=== PATIENT | male | born 1955 | race Asian ===

== ENCOUNTER 2019-02-28 17:19 | Inpatient (IN) | payer MEDICARE ==
[2019-02-28] MEDS ORDERED: levETIRAcetam 1000 MG/NS 0.75% 1,000 MG/100 ML BAG IV ONE (17:49)
--- NOTE | 2019-02-28 17:49 | Emergency Department Report ---
ED Neuro Deficit HPI - General Chief Complaint: Neuro Symptoms/Deficit Stated Complaint: NEURO ISSUES Time Seen by Provider: 02/28/19 17:48 Source: patient, EMS Mode of arrival: Stretcher Limitations: Other - History of Present Illness Initial Comments: 63-year-old male with a past medical history of depression, HIV, and brain abnormality/seizures in 2009 presents to the hospital complains of right sided weakness and numbness that started approximately 10 AM while on the phone with a family member. Symptoms have been constant and have not improved. He did not present to the ER until 17:19. Patient states he has chronic memory deficits since 2009. He cannot recall his exact diagnosis. Family member at the bedside states that he presented with seizures at that time. Family member at the bedside also confirms that patient's delayed and hesitant speech is his baseline. Pt does not take any medications currently and has not seen an HIV/infectious disease doctor since 2016. At that time his viral load was undetectable. - Related Data Allergies/Adverse Reactions: Allergies Allergy/AdvReac Type Severity Reaction Status Date / Time No Known Allergies Allergy Unverified 02/28/19 17:20 ED Review of Systems ROS: Stated complaint: NEURO ISSUES Other details as noted in HPI Comment: All other systems reviewed and negative ED Neuro Physical Exam - General Limitations: Other Suspected Stroke: Yes - NIHSS Assessment Interval: Baseline 1a. Level of Consciousness: alert/keenly responsive 1b. LOC Questions: answers 1 question correctly 1c. LOC Commands: performs tasks correctly 2. Best Gaze: normal 3. Visual: no visual loss 4. Facial Palsy: minor paralysis 5b. Motor Arm Right: drift 5a. Motor Arm Left: no drift 6a. Motor Leg Left: no drift 6b. Motor Leg Right: drift 7. Limb Ataxia: absent 8. Sensory: normal 9. Best Language: mild/moderate aphasia 10. Dysarthria: mild/moderate dysarthria 11. Extinction/Inattention: no abnormality Total Score: 6 Stroke Severity: Moderate Stroke - Other Other exam information: General: No acute distress Head: Atraumatic Eyes: normal appearance NORRIS, EOMI ENT: Moist mucous membranes Neck: Normal appearance, no midline tenderness Chest: Clear to auscultation bilaterally CV: Regular rate and rhythm Abdomen: Soft, normal bowel sounds, nontender, nondistended, no rebound or gua rding Back: Normal inspection Extremity: Normal inspection infection, full range of motion Neuro: See NIHSS Psych: Appropriate behavior Skin: No rash ED Course Vital Signs 02/28/19 02/28/19 02/28/19 17:38 17:46 18:00 Temperature Pulse Rate 95 H 95 H 86 Respiratory 18 16 21 Rate Blood Pressure O2 Sat by Pulse Oximetry 02/28/19 02/28/19 02/28/19 18:16 18:23 18:30 Temperature 98.3 F Pulse Rate 91 H 89 88 Respiratory 17 20 19 Rate Blood Pressure 143/96 O2 Sat by Pulse 96 96 96 Oximetry 02/28/19 18:46 Temperature Pulse Rate 92 H Respiratory 23 Rate Blood Pressure 159/101 O2 Sat by Pulse 96 Oximetry - Lab Data Result diagrams: 02/28/19 17:33 02/28/19 17:33 Lab Results 02/28/19 02/28/19 02/28/19 Range/Units 17:33 17:33 17:33 WBC 7.1 (4.5-11.0) K/mm3 RBC 5.43 H (3.65-5.03) M/mm3 Hgb 16.1 H (11.8-15.2) gm/dl Hct 48.7 H (35.5-45.6) % MCV 90 (84-94) fl MCH 30 (28-32) pg MCHC 33 (32-34) % RDW 14.0 (13.2-15.2) % Plt Count 150 (140-440) K/mm3 Lymph % (Auto) 20.1 (13.4-35.0) % Perkins % (Auto) 9.7 H (0.0-7.3) % Eos % (Auto) 0.6 (0.0-4.3) % Baso % (Auto) 0.3 (0.0-1.8) % Lymph # 1.4 (1.2-5.4) K/mm3 Perkins # 0.7 (0.0-0.8) K/mm3 Eos # 0.0 (0.0-0.4) K/mm3 Baso # 0.0 (0.0-0.1) K/mm3 Seg Neutrophils % 69.3 (40.0-70.0) % Seg Neutrophils # 4.9 (1.8-7.7) K/mm3 PT 13.1 (12.2-14.9) Sec. INR 1.00 (0.87-1.13) APTT 30.7 (24.2-36.6) Sec. Thrombin Time (15.1-19.6) Sec. Sodium 139 (137-145) mmol/L Potassium 3.9 (3.6-5.0) mmol/L Chloride 102.2 (98-107) mmol/L Carbon Dioxide 24 (22-30) mmol/L Anion Gap 17 mmol/L BUN 10 (9-20) mg/dL Creatinine 1.1 (0.8-1.5) mg/dL Estimated GFR > 60 ml/min BUN/Creatinine Ratio 9 % Glucose 105 H (75-100) mg/dL Calcium 9.0 (8.4-10.2) mg/dL Magnesium (1.7-2.3) mg/dL Troponin T < 0.010 (0.00-0.029) ng/mL 02/28/19 02/28/19 Range/Units 17:33 17:40 WBC (4.5-11.0) K/mm3 RBC (3.65-5.03) M/mm3 Hgb (11.8-15.2) gm/dl Hct (35.5-45.6) % MCV (84-94) fl MCH (28-32) pg MCHC (32-34) % RDW (13.2-15.2) % Plt Count (140-440) K/mm3 Lymph % (Auto) (13.4-35.0) % Perkins % (Auto) (0.0-7.3) % Eos % (Auto) (0.0-4.3) % Baso % (Auto) (0.0-1.8) % Lymph # (1.2-5.4) K/mm3 Perkins # (0.0-0.8) K/mm3 Eos # (0.0-0.4) K/mm3 Baso # (0.0-0.1) K/mm3 Seg Neutrophils % (40.0-70.0) % Seg Neutrophils # (1.8-7.7) K/mm3 PT (12.2-14.9) Sec. INR (0.87-1.13) APTT (24.2-36.6) Sec. Thrombin Time 16.8 (15.1-19.6) Sec. Sodium (137-145) mmol/L Potassium (3.6-5.0) mmol/L Chloride (98-107) mmol/L Carbon Dioxide (22-30) mmol/L Anion Gap mmol/L BUN (9-20) mg/dL Creatinine (0.8-1.5) mg/dL Estimated GFR ml/min BUN/Creatinine Ratio % Glucose (75-100) mg/dL Calcium (8.4-10.2) mg/dL Magnesium 2.20 (1.7-2.3) mg/dL Troponin T (0.00-0.029) ng/mL - EKG Data -: EKG Interpreted by Me EKG shows normal: sinus rhythm, ST-T waves (no stemi) Rate: normal When compared to previous EKG there are: previous EKG unavailable - Radiology Data Radiology results: report reviewed CT head/brain wo con INDICATION / CLINICAL INFORMATION: 63 years Male; neuro deficits <6hrs or sx present upon awakening. TECHNIQUE: Routine CT head without contrast. All CT scans at this location are performed using CT dose reduction for ALARA by means of automated exposure control. COMPARISON: None. FINDINGS: BRAIN / INTRACRANIAL CONTENTS: I do not see hemorrhage or hemorrhagic lesion. I do not see stroke mimics. No acute hemorrhage, mass effect, midline shift, hydrocephalus, or acute, large territorial infarct. Moderate cortical involution is seen. Chronic ischemic changes are seen in the corpus stratum bilaterally more on the left side. Significant volume loss is seen in the left temporal lobe with compensatory enlargement of left temporal horn. Atrium of the left lateral ventricle is larger. Periventricular low density areas are seen probably due to microvascular faint angiopathy. I do not see CT findings to suggest acute territorial infarction. CRANIOCERVICAL JUNCTION: No significant abnormality. ORBITS: No significant abnormality of visualized orbits. SINUSES / MASTOIDS: No significant abnormality of the visualized paranasal sinuses or mastoid air cells. ADDITIONAL FINDINGS: None. IMPRESSION: I do not see hemorrhage or stroke mimics Moderate cortical involution Significant volume loss in the left temporal lobe - Medical Decision Making Code stroke was initiated prior to patient's arrival. Patient was examined at the bedside with neurology. Patient does have some mild deficits. 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 Patient does not take any medications and has been noncompliant with his HIV medications with unknown current CD4 count. Patient provided Keppra in the ED for seizure prophylaxis. Patient will be admitted for further neurologic workup. Please refer to neurologist note for recommendations. - Differential Diagnosis seizure, encephalopathy, CVA Critical Care Time: No Critical care attestation.: If time is entered above; I have spent that time in minutes in the direct care of this critically ill patient, excluding procedure time. ED Disposition Clinical Impression: Encephalopathy, Right sided weakness, HIV (human immunodeficiency virus infection) Disposition: 09 OP ADMIT IP TO THIS HOSP Is pt being admited?: Yes Does the pt Need Aspirin: No Condition: Stable Time of Disposition: 18:41 (Dr Don/hosp)
--- NOTE | 2019-02-28 17:55 | Emergency Department Report ---
ED General Adult HPI - General Chief complaint: Neuro Symptoms/Deficit Stated complaint: NEURO ISSUES Time Seen by Provider: 02/28/19 17:48 Source: patient, EMS Mode of arrival: Stretcher Limitations: Other - History of Present Illness Initial comments: [facility] Date of Service: 02/28/2019 17:13:52 Impression: Encephalopathy Comments: Unclear if he is post ictal from a seizure vs progressive dementia from untreated HIV vs infectious process. With history of seizures would resume anti epileptic and infectious work up per primary team. Metrics: Last Known Well: 02/28/2019 10:00:00 [employer] Notification Time: 02/28/2019 17:12:29 Arrival Time: 02/28/2019 17:19:00 Stamp Time: 02/28/2019 17:13:52 Time First Login Attempt: 02/28/2019 17:22:00 Video Start Time: 02/28/2019 17:27:00 Symptoms: right sided weakness NIHSS Start Assessment Time: 02/28/2019 17:32:00 Patient is not a candidate for tPA. Patient was not deemed candidate for tPA thrombolytics because of Last Well Known Above 4.5 Hours. Video End Time: 02/28/2019 17:47:31 CT head showed no acute hemorrhage or acute core infarct. CT head was reviewed. Advanced imaging was not obtained as the presentation was not suggestive of Large Vessel Occlusive Disease. Radiologist was not called back for review of advanced imaging because not indicated ER Physician notified of the decision on thrombolytics management on 02/28/2019 17:47:34 Our recommendations are outlined below. Recommendations: Activate Stroke Protocol Admission/Order Set Stroke/Telemetry Floor Neuro Checks Bedside Swallow Eval DVT Prophylaxis IV Fluids, Normal Saline Head of Bed Below 30 Degrees Euglycemia and Avoid Hyperthermia (PRN Acetaminophen) Recommended Scan: MRI Head with and Without Contrast Therapies: Physical Therapy, Occupational Therapy, Speech Therapy Assessment When Applicable Dysphaghia Screen: Swallow Evaluation, Bedside DVT prophylaxis: SCDs, Pneumatic Compression Disposition: Follow up with Teleneurology Follow up Sign Out: Discussed with Emergency Department Provider History of Present Illness: Patient is a 63 year old Male. Patient was brought by private transportation with symptoms of right sided weakness 63 yo M with history of depression, HIV, and seizures who is presenting with right sided weakness and speech changes. Patient states that he has right sided weakness. He noticed it at 10:00 this morning. He was awake and he was on the phone and he noticed it after. He came in because it didn't go away. He was not able to walk around the house. He states that something happened to him in 2011 but he is not clear on what it was he can only say he was in the ED. He is not on HIV medications. He states that his viral load was undetectable in 2014. He stopped taking his medications as he couldn't afford them. His niece says that he has memory issues at baseline. He had seizures in the past due to a brain injury is all that she knew. CT head showed no acute hemorrhage or acute core infarct but does show significant atrophy of the left temporal lobe. CT head was reviewed. Examination: 1A: Level of Consciousness - Alert; keenly responsive + 0 1B: Ask Month and Age - 1 Question Right + 1 1C: Blink Eyes & Squeeze Hands - Performs Both Tasks + 0 2: Test Horizontal Extraocular Movements - Normal + 0 3: Test Visual Camp - No Visual Loss + 0 4: Test Facial Palsy (Use Grimace if Obtunded) - Minor paralysis (flat nasolabial fold, smile asymetry) + 1 5A: Test Left Arm Motor Drift - No Drift for 10 Seconds + 0 5B: Test Right Arm Motor Drift - Drift, but doesn't hit bed + 1 6A: Test Left Leg Motor Drift - No Drift for 5 Seconds + 0 6B: Test Right Leg Motor Drift - Drift, but doesn't hit bed + 1 7: Test Limb Ataxia (FNF/Heel-Gotti) - No Ataxia + 0 8: Test Sensation - Normal; No sensory loss + 0 9: Test Language/Aphasia - Mild-Moderate Aphasia: Some Obvious Changes, Without Significant Limitation + 1 10: Test Dysarthria - Mild-Moderate Dysarthria: Slurring but can be understood + 1 11: Test Extinction/Inattention - No abnormality + 0 NIHSS Score: 6 Patient was informed the Neurology Consult would happen via TeleHealth consult by way of interactive audio and video telecommunications and consented to receiving care in this manner. Due to the immediate potential for life-threatening deterioration due to underlying acute neurologic illness, I spent 35 minutes providing critical care. This time includes time for face to face visit via telemedicine, review of medical records, imaging studies and discussion of findings with providers, the patient and/or family. Dr Caridad Parker [employer] - Related Data Allergies Allergy/AdvReac Type Severity Reaction Status Date / Time No Known Allergies Allergy Unverified 02/28/19 17:20 ED Review of Systems ROS: Stated complaint: NEURO ISSUES Other details as noted in HPI ED Physical Exam - General Limitations: Other Critical care attestation.: If time is entered above; I have spent that time in minutes in the direct care of this critically ill patient, excluding procedure time. ED Disposition Clinical Impression: Encephalopathy Disposition: DC-09 OP ADMIT IP TO THIS HOSP Is pt being admited?: Yes Condition: Stable
[2019-02-28 18:04] LABS: BUN/Creatinine Ratio 9; Blood Urea Nitrogen 10 mg/dL (9-20); Hemolysis Index 15
[2019-02-28 18:05] LABS: Basophils % (Auto) 0.3 % (0.0-1.8); Eosinophils % (Auto) 0.6 % (0.0-4.3); Hematocrit 48.7 % (35.5-45.6); Hemoglobin 16.1 gm/dl (11.8-15.2); Lymphocytes % (Auto) 20.1 % (13.4-35.0); Mean Corpuscular HGB Conc 33 % (32-34); Mean Corpuscular Volume 90 fl (84-94); Monocytes % (Auto) 9.7 % (0.0-7.3); Platelet Count 150 K/mm3 (140-440); Red Blood Count 5.43 M/mm3 (3.65-5.03)
[2019-02-28 18:06] LABS: Lymphocytes # (Auto) 1.4 K/mm3 (1.2-5.4); Monocytes # (Auto) 0.7 K/mm3 (0.0-0.8)
[2019-02-28 18:07] LABS: Partial Thromboplastin Time 30.7 Sec. (24.2-36.6)
--- NOTE | 2019-02-28 18:17 | Cat Scan Report ---
CT head/brain wo con INDICATION / CLINICAL INFORMATION: 63 years Male; neuro deficits <6hrs or sx present upon awakening. TECHNIQUE: Routine CT head without contrast. All CT scans at this location are performed using CT dos e reduction for ALARA by means of automated exposure control. COMPARISON: None. FINDINGS: BRAIN / INTRACRANIAL CONTENTS: I do not see hemorrhage or hemorrhagic lesion. I do not see stroke fidencio ics. No acute hemorrhage, mass effect, midline shift, hydrocephalus, or acute, large territorial infarct. Moderate cortical involution is seen. Chronic ischemic changes are seen in the corpus stratum bilate rally more on the left side. Significant volume loss is seen in the left temporal lobe with compensat ory enlargement of left temporal horn. Atrium of the left lateral ventricle is larger. Periventricular low density areas are seen probably due to microvascular faint angiopathy. I do not see CT findings to suggest acute territorial infarction. CRANIOCERVICAL JUNCTION: No significant abnormality. ORBITS: No significant abnormality of visualized orbits. SINUSES / MASTOIDS: No significant abnormality of the visualized paranasal sinuses or mastoid air rosana ls. ADDITIONAL FINDINGS: None. IMPRESSION: I do not see hemorrhage or stroke mimics Moderate cortical involution Significant volume loss in the left temporal lobe Discussed findings with ER physician at 5:12 PM Central daylight saving time. Signer Name: Cody Donis MD Signed: 02/28/2019 6:12 PM Workstation Name: [id number]
--- NOTE | 2019-02-28 18:44 | History and Physical Report ---
History of Present Illness Chief complaint: I feel weak, I cant talk History of present illness: 63 YO Male with HIV not currently taking medication, Seizure Disorder presents to ED for evaluation. Pt states that he experienced sudden onset numbness, Right arm and leg weakness, and slurred speech that began at 10:00hrs while talking on the telephone to a member of his family. Pt states that he waited for symptoms to improve, but symptoms persisted several hours after the onset. EMS notified and upon arrival the patient was found to have neurologic deficit. A code stroke was called and the patient transported to [facility]. Pt seen and evaluated in ED and found to have symptoms consistent with CVA. Teleneurology consulted, but patient is deemed not a candidate for TPA. Pt placed in observation status and admitted to medical floor and initiated on CVA protocol. Pt denies fever, chills, CP, Palpitations, shortness of breath, BRBPR, Productive cough, skin rash, or recent ill contacts. Non prior admission for review. No medication listed at time of admission for reconciliation. Past History Past Medical History: other (see hpi) Past Surgical History: No surgical history, Other (reviewed) Social history: single. denies: smoking, alcohol abuse, prescription drug abuse Family history: no significant family history (reviewed) Medications and Allergies Allergies Allergy/AdvReac Type Severity Reaction Status Date / Time No Known Allergies Allergy Unverified 02/28/19 17:20 Home Medications Medication Instructions Recorded Confirmed Last Taken Type Unobtainable 02/28/19 02/28/19 Unknown History Review of Systems Constitutional: no weight loss, no weight gain, no fever, no sweats Ears, nose, mouth and throat: no ear pain, no ear discharge, no tinnitis, no decreased hearing, no nose pain Cardiovascular: no chest pain, no orthopnea, no palpitations, no edema, no syncope Respiratory: no cough, no excessive sputum, no hemoptysis, no dyspnea on exertion Gastrointestinal: no nausea, no vomiting, no diarrhea, no constipation, no change in bowel habits Genitourinary Male: no hematuria, no flank pain, no discharge, no urinary frequency, no urinary hesitancy, no nocturia Rectal: no pain, no incontinence, no bleeding Musculoskeletal: no neck stiffness, no neck pain, no shooting arm pain, no arm numbness/tingling, no low back pain, no leg numbness/tingling Integumentary: no rash, no pruritis, no redness, no sores, no wounds, no jaundice Neurological: no transient paralysis, no paralysis, no weakness, no tremors Psychiatric: no anxiety, no memory loss, no change in sleep habits, no sleep disturbances, no insomnia, no hypersomnia, no change in appetite, no change in libido Endocrine: no cold intolerance, no heat intolerance, no polyphagia, no excessive thirst, no polyuria, no nocturia, no excessive sweating Hematologic/Lymphatic: no easy bruising, no easy bleeding Allergic/Immunologic: no allergic rhinitis, no wheezing Exam - Constitutional Vitals: Temp Pulse Resp BP Pulse Ox 98.3 F 89 20 143/96 96 02/28/19 18:23 02/28/19 18:23 02/28/19 18:23 02/28/19 18:23 02/28/19 18:23 General appearance: Absent: no acute distress, mild distress - EENT Eyes: Present: PERRL ENT: hearing intact, clear oral mucosa - Neck Neck: Present: supple, normal ROM - Respiratory Respiratory effort: normal Respiratory: bilateral: CTA - Cardiovascular Heart Sounds: Present: S1 & S2. Absent: rub, click - Extremities Extremities: pulses symmetrical, No edema Peripheral Pulses: within normal limits - Abdominal General gastrointestinal: Present: soft, non-tender, non-distended, normal bowel sounds Male genitourinary: Present: normal - Integumentary Integumentary: Present: clear, warm, dry - Musculoskeletal Musculoskeletal: right sided weakness - Psychiatric Psychiatric: appropriate mood/affect, intact judgment & insight, memory intact - Neurologic Neurologic: no CNII-XII intact, focal deficits, moves all extremities, no gait normal Results - Labs CBC & Chem 7: 02/28/19 17:33 02/28/19 17:33 Labs: Abnormal lab results 02/28/19 02/28/19 Range/Units 17:33 17:33 RBC 5.43 H (3.65-5.03) M/mm3 Hgb 16.1 H (11.8-15.2) gm/dl Hct 48.7 H (35.5-45.6) % [place] % (Auto) 9.7 H (0.0-7.3) % Glucose 105 H (75-100) mg/dL Assessment and Plan - Patient Problems (1) CVA (cerebral vascular accident) Status: Acute Qualifiers: Laterality of affected vessel: unspecified Plan to address problem: CVA protocol: CT head, neuro check, seizure precautions, lipid panel, carotid doppler, Echo, antiplatelet therpay, Neurology consulted in ED, further testing as per neurology team, PT/OT/Speech Therapy, Swallow screen (2) Right hemiparesis Status: Acute Plan to address problem: Secondary to CVA, PT consulted, (3) Seizure disorder Status: Acute Plan to address problem: Seizure precautions, supportive care, neuro checks (4) HIV (human immunodeficiency virus infection) Status: Acute Plan to address problem: Outpatient I/D F/U care. (5) DVT prophylaxis Status: Acute Plan to address problem: SCD to ble while in bed, prophylactic heparin
[2019-02-28] MEDS ORDERED: MAGNESIUM HYDROXIDE (MOM) ORAL LIQD UDC PO PRN (18:50)
[2019-02-28] MEDS ORDERED: ACETAMINOPHEN 325 MG TAB PO PRN (18:50)
[2019-02-28] MEDS ORDERED: METOCLOPRAMIDE 10 MG TAB PO PRN (18:50)
[2019-02-28] MEDS ORDERED: PROMETHAZINE 25 MG RECT SUPP PR PRN (18:50)
[2019-02-28] MEDS ORDERED: ONDANSETRON 4 MG/2 ML INJ IV PRN (18:50)
[2019-02-28 18:59] LABS: Bilirubin,Urine NEG (Negative); Blood,Urine NEG (Negative); Color,Urine Straw (Yellow); Protein,Urine <15 mg/dL mg/dL (Negative); RBC,Urine < 1.0 /HPF (0.0-6.0); Urobilinogen,Urine < 2.0 mg/dL (<2.0); WBC,Urine < 1.0 /HPF (0.0-6.0)
[2019-02-28 19:07] LABS: Amphetamine Screen,Urine PRESUMPTIVE NEGATIVE; Benzodiazepines Screen,Urine PRESUMPTIVE NEGATIVE; Cannabinoid Screen,Urine PRESUMPTIVE NEGATIVE; Cocaine Screen,Urine PRESUMPTIVE NEGATIVE; Methadone Screen,Urine PRESUMPTIVE NEGATIVE; Opiate Screen,Urine PRESUMPTIVE NEGATIVE
--- NOTE | 2019-03-01 11:42 | Progress Note ---
Assessment and Plan (1) CVA (cerebral vascular accident) Status: Acute Qualifiers: Laterality of affected vessel: unspecified Plan to address problem: Stroke protocol initiated MRI done but report is pending Echo done Carotid duplex scan done Neurology consult (2) Right hemiplegia Status: Acute Plan to address problem: Secondary to CVA, PT consulted, (3) Seizure disorder Status: Acute Plan to address problem: Seizure precautions, supportive care, neuro checks Continue antiseizure medications (4) HIV (human immunodeficiency virus infection) Status: Acute Plan to address problem: Outpatient I/D F/U care. (5) DVT prophylaxis Status: Acute Plan to address problem: SCD to ble while in bed, prophylactic heparin and GI prophylaxis Subjective Date of service: 03/01/19 Principal diagnosis: CVA with Rt hemiplegia Interval history: 63 YO Male with HIV not currently taking medication, Seizure Disorder presents to ED for evaluation. Pt states that he experienced sudden onset numbness, Right arm and leg weakness, and slurred speech that began at 10:00hrs while talking on the telephone to a member of his family. Pt states that he waited for symptoms to improve, but symptoms persisted several hours after the onset. EMS notified and upon arrival the patient was found to have neurologic deficit. A code stroke was called and the patient transported to [facility]. Pt seen and evaluated in ED and found to have symptoms consistent with CVA. Teleneurology consulted, but patient is deemed not a candidate for TPA. Pt placed in observation status and admitted to medical floor and initiated on CVA protocol. Pt denies fever, chills, CP, Palpitations, shortness of breath, BRBPR, Productive cough, skin rash, or recent ill contacts. Non prior admission for review. No medication listed at time of ad mission for reconciliation. patinet changed to inpatient status. Objective - Constitutional Vitals: Vital Signs - 12hr 03/01/19 06:44 Temperature 99.0 F Pulse Rate 85 Respiratory 20 Rate Blood Pressure 150/98 O2 Sat by Pulse 96 Oximetry General appearance: Present: no acute distress, well-nourished - EENT Eyes: PERRL, EOM intact ENT: hearing intact, clear oral mucosa Ears: bilateral: normal - Neck Neck: supple, normal ROM - Respiratory Respiratory effort: normal Respiratory: bilateral: CTA - Breasts Breasts: normal - Cardiovascular Heart rate: 78 Rhythm: regular Heart Sounds: Present: S1 & S2. Absent: gallop, rub Extremities: no ischemia, pulses intact, No edema, normal color, Full ROM - Gastrointestinal General gastrointestinal: Present: soft, non-tender, non-distended, normal bowel sounds - Genitourinary Male genitourinary: normal - Integumentary Integumentary: clear, warm, dry - Musculoskeletal Musculoskeletal: right sided weakness (0/5 power in RUE and RLE.) - Neurologic Neurologic: focal deficits (Rt Hemiplegia present), moves all extremities - Psychiatric Psychiatric: memory intact, appropriate mood/affect, intact judgment & insight - Labs CBC & Chem 7: 02/28/19 17:33 02/28/19 17:33 Labs: Abnormal lab results 02/28/19 02/28/19 Range/Units 17:33 17:33 RBC 5.43 H (3.65-5.03) M/mm3 Hgb 16.1 H (11.8-15.2) gm/dl Hct 48.7 H (35.5-45.6) % [place] % (Auto) 9.7 H (0.0-7.3) % Glucose 105 H (75-100) mg/dL - Imaging and cardiology EKG: report reviewed MRI - head: report reviewed (pending )
--- NOTE | 2019-03-01 13:38 | Consultation ---
History of Present Illness Consult date: 03/01/19 History of present illness: went over the ED note and checked the CT marked atrophy and old chronic strokes bilateral cause of problem Past History Past Medical History: other (see hpi) Past Surgical History: No surgical history, Other (reviewed) Social history: single. denies: smoking, alcohol abuse, prescription drug abuse Family history: no significant family history (reviewed) Medications and Allergies Allergies Allergy/AdvReac Type Severity Reaction Status Date / Time No Known Allergies Allergy Unverified 02/28/19 17:20 Home Medications Medication Instructions Recorded Confirmed Last Taken Type Unobtainable 02/28/19 02/28/19 Unknown History Active Meds: Active Medications Acetaminophen (Tylenol) 650 mg PO Q4H PRN PRN Reason: Pain, Mild (1-3) Bisacodyl (Dulcolax) 10 mg MN QDAY PRN PRN Reason: Constipation Heparin Sodium (Porcine) (Heparin) 5,000 unit SUB-Q Q12HR CHAO Magnesium Hydroxide (Milk Of Magnesia) 30 ml PO Q4H PRN PRN Reason: Constipation Metoclopramide HCl (Reglan) 10 mg PO Q6H PRN PRN Reason: Nausea And Vomiting Ondansetron HCl (Zofran) 4 mg IV Q8H PRN PRN Reason: Nausea And Vomiting Promethazine HCl (Phenergan) 25 mg MN Q6H PRN PRN Reason: Nausea And Vomiting Sodium Chloride (Sodium Chloride Flush Syringe 10 Ml) 10 ml IV PRN PRN PRN Reason: LINE FLUSH Physical Examination - Vital Signs Vital Signs: Vital Signs Pulse Resp 95 H 18 02/28/19 17:38 02/28/19 17:38 Results - Laboratory Findings CBC and BMP: 02/28/19 17:33 02/28/19 17:33 Abnormal Lab Findings: Abnormal Labs 02/28/19 02/28/19 17:33 17:33 RBC 5.43 H Hgb 16.1 H Hct 48.7 H [place] % (Auto) 9.7 H Glucose 105 H
[2019-03-01] MEDS: HEPARIN 5,000 UNIT/1 ML VIAL SUB-Q SCH ×2 (14:19→21:37)
[2019-03-02] MEDS: HEPARIN 5,000 UNIT/1 ML VIAL SUB-Q SCH ×2 (10:25→21:42)
--- NOTE | 2019-03-02 13:41 | Vascular Lab Report ---
BILATERAL CAROTID DOPPLER ULTRASOUND INDICATION : stroke TECHNIQUE: Grayscale and color Doppler imaging performed through the neck. COMPARISON: None FINDINGS: Right: There is no significant atherosclerotic disease. Peak systolic velocity in the CCA is 72 cm/ s with end-diastolic velocity of 19 cm/s. Peak systolic velocity in the proximal ICA is 90 cm/s with end-diastolic velocity of 14 cm/s. ICA to CCA ratio is less than 2. There is antegrade flow in the E CA and the vertebral artery. Left: There is no significant atherosclerotic disease. Peak systolic velocity in the CCA is 71 cm/s w ith end-diastolic velocity of 15 cm/s. Peak systolic velocity in the proximal ICA is 73 cm/s with end -diastolic velocity of 26 cm/s. ICA to CCA ratio is less than 2. There is antegrade flow in the ECA and the vertebral artery. IMPRESSION: No hemodynamically significant stenosis by NASCET criteria. Doppler velocities indicate l ess than 50% luminal narrowing throughout both carotid systems. Signer Name: Samson Ellis Jr, MD Signed: 03/02/2019 1:37 PM Workstation Name: [id number]
--- NOTE | 2019-03-02 15:21 | Progress Note ---
Assessment and Plan (1) CVA (cerebral vascular accident) Status: Acute Qualifiers: Laterality of affected vessel: unspecified Plan to address problem: Stroke protocol initiated MRI done but report is pending Echo done Carotid duplex scan done Neurology consult (2) Right hemiplegia Status: Acute Plan to address problem: Secondary to CVA, PT consulted, (3) Seizure disorder Status: Acute Plan to address problem: Seizure precautions, supportive care, neuro checks Continue antiseizure medications (4) HIV (human immunodeficiency virus infection) Status: Acute Plan to address problem: Outpatient I/D F/U care. (5) DVT prophylaxis Status: Acute Plan to address problem: SCD to ble while in bed, prophylactic heparin and GI prophylaxis Subjective Date of service: 03/02/19 Principal diagnosis: CVA with Rt hemiplegia Interval history: 63 YO Male with HIV not currently taking medication, Seizure Disorder presents to ED for evaluation. Pt states that he experienced sudden onset numbness, Right arm and leg weakness, and slurred speech that began at 10:00hrs while talking on the telephone to a member of his family. Pt states that he waited for symptoms to improve, but symptoms persisted several hours after the onset. EMS notified and upon arrival the patient was found to have neurologic deficit. A code stroke was called and the patient transported to [facility]. Pt seen and evaluated in ED and found to have symptoms consistent with CVA. Teleneurology consulted, but patient is deemed not a candidate for TPA. Pt placed in observation status and admitted to medical floor and initiated on CVA protocol. Pt denies fever, chills, CP, Palpitations, shortness of breath, BRBPR, Productive cough, skin rash, or recent ill contacts. Non prior admission for review. No medication listed at time of ad mission for reconciliation. patient changed to inpatient status. Objective - Constitutional Vitals: Vital Signs - 12hr 03/02/19 03/02/19 03/02/19 05:42 05:43 12:45 Temperature 99.3 F Pulse Rate 92 H 90 Respiratory Rate Blood Pressure 140/101 145/97 O2 Sat by Pulse 94 93 93 Oximetry 03/02/19 12:50 Temperature 99.5 F Pulse Rate 97 H Respiratory 20 Rate Blood Pressure 129/105 O2 Sat by Pulse 90 Oximetry General appearance: Present: no acute distress, well-nourished - EENT Eyes: PERRL, EOM intact ENT: hearing intact, clear oral mucosa Ears: bilateral: normal - Neck Details: 78 Neck: supple, normal ROM - Respiratory Respiratory effort: normal Respiratory: bilateral: CTA - Breasts Breasts: normal - Cardiovascular Heart rate: 78 Rhythm: regular Heart Sounds: Present: S1 & S2. Absent: gallop, rub Extremities: pulses intact, No edema, normal color, Full ROM - Gastrointestinal General gastrointestinal: Present: soft, non-tender, non-distended, normal bowel sounds - Genitourinary Male genitourinary: deferred - Integumentary Integumentary: clear, warm, dry - Musculoskeletal Musculoskeletal: right sided weakness (0/5 power in both right upper extremity and right lower extremity) - Neurologic Neurologic: focal deficits (right hemiplegia-0/5 power in right upper extremity and right lower extremity) - Psychiatric Psychiatric: memory intact, appropriate mood/affect, intact judgment & insight - Labs CBC & Chem 7: 02/28/19 17:33 02/28/19 17:33
--- NOTE | 2019-03-02 15:29 | Magnetic Resonance Report ---
MRI BRAIN WITHOUT CONTRAST INDICATION / CLINICAL INFORMATION: CVA with Rt Hemiparesis. TECHNIQUE: Multisequence, multiplanar images were obtained. COMPARISON: CT head dated 02/28/2019 FINDINGS: CEREBRAL and CEREBELLAR HEMISPHERES: A 1.8 x 1.4 cm area of diffusion restriction is identified in th e left evelyn on diffusion images 10 and 11. There is corresponding decreased signal on the ADC map in this area. No other areas of diffusion restriction are identified. There is moderate diffuse volume loss and chronic white matter changes. Volume loss is most pronounced in the left anterior temporal r egion and along the left sylvian fissure. This may represent a previous chronic ischemic insult or tr aumatic injury. Please correlate with the patient's history. No acute hemorrhage. No extra-axial flu id collection. VENTRICLES: Normal in size and configuration for age. VISUALIZED ORBITS: No significant abnormality. VISUALIZED PARANASAL SINUSES: No significant abnormality. ADDITIONAL FINDINGS: None. IMPRESSION: Subacute ischemic infarct in the left evelyn as described. Volume loss. Nonspecific chronic white matter changes. Prominent volume loss in the left temporal region suggesting previous ischemic insult versus traumati c injury. Signer Name: Samson Ellis Jr, MD Signed: 03/02/2019 3:24 PM Workstation Name: [id number]
[2019-03-02 19:58] LABS: Chol/HDL Ratio 5.56 %
[2019-03-03] MEDS ORDERED: ASPIRIN 325 MG TAB PO STA (10:12)
[2019-03-03] MEDS: HEPARIN 5,000 UNIT/1 ML VIAL SUB-Q SCH ×2 (12:31→21:32)
--- NOTE | 2019-03-03 12:41 | Progress Note ---
Assessment and Plan Assessment and plan: Acute ischemic stroke Stroke protocol initiated MRI done confirms acute stroke Echo done Carotid duplex scan done. No significant Neurology consulted Aspirin Lipitor PT recommends acute rehab placement Right hemiplegia Secondary to CVA, PT consulted, following Seizure disorder Seizure precautions, supportive care, neuro checks Continue antiseizure medications HIV (human immunodeficiency virus infection) Outpatient I/D F/U care. DVT prophylaxis SCD to ble while in bed, prophylactic heparin and GI prophylaxis History Interval history: Right sided weakness Hospitalist Physical - Physical exam Narrative exam: Gen: Not in acute distress, sitting up in bed HEENT: Normocephalic, atraumatic Neck: supple, no JVD Heart: S1 and S2 reg, no murmurs, rubs or gallop Lungs: Clear to auscultation, no rhonchi, no wheeze Abd: soft, non tender, non distended, normal BS, Ext: No edema, no clubbing, no cyanosis Neuro: Awake, alert, oriented X 3, Right hemiplegia - Constitutional Vitals: Temp Pulse Resp BP Pulse Ox 98.9 F 90 18 135/88 92 03/03/19 11:35 03/03/19 11:35 03/03/19 11:35 03/03/19 11:35 03/03/19 11:35 General appearance: Present: no acute distress, well-nourished Results - Labs CBC & Chem 7: 02/28/19 17:33 02/28/19 17:33 Labs: Laboratory Last Values WBC 7.1 K/mm3 (4.5-11.0) 02/28/19 17:33 RBC 5.43 M/mm3 (3.65-5.03) H 02/28/19 17:33 Hgb 16.1 gm/dl (11.8-15.2) H 02/28/19 17:33 Hct 48.7 % (35.5-45.6) H 02/28/19 17:33 MCV 90 fl (84-94) 02/28/19 17:33 MCH 30 pg (28-32) 02/28/19 17:33 MCHC 33 % (32-34) 02/28/19 17:33 RDW 14.0 % (13.2-15.2) 02/28/19 17:33 Plt Count 150 K/mm3 (140-440) 02/28/19 17:33 Lymph % (Auto) 20.1 % (13.4-35.0) 02/28/19 17:33 [place] % (Auto) 9.7 % (0.0-7.3) H 02/28/19 17:33 Eos % (Auto) 0.6 % (0.0-4.3) 02/28/19 17:33 Baso % (Auto) 0.3 % (0.0-1.8) 02/28/19 17:33 Lymph # 1.4 K/mm3 (1.2-5.4) 02/28/19 17:33 [place] # 0.7 K/mm3 (0.0-0.8) 02/28/19 17:33 Eos # 0.0 K/mm3 (0.0-0.4) 02/28/19 17:33 Baso # 0.0 K/mm3 (0.0-0.1) 02/28/19 17:33 Seg Neutrophils % 69.3 % (40.0-70.0) 02/28/19 17:33 Seg Neutrophils # 4.9 K/mm3 (1.8-7.7) 02/28/19 17:33 PT 13.1 Sec. (12.2-14.9) 02/28/19 17:33 INR 1.00 (0.87-1.13) 02/28/19 17:33 APTT 30.7 Sec. (24.2-36.6) 02/28/19 17:33 Thrombin Time 16.8 Sec. (15.1-19.6) 02/28/19 17:33 Sodium 139 mmol/L (137-145) 02/28/19 17:33 Potassium 3.9 mmol/L (3.6-5.0) 02/28/19 17:33 Chloride 102.2 mmol/L (98-107) 02/28/19 17:33 Carbon Dioxide 24 mmol/L (22-30) 02/28/19 17:33 Anion Gap 17 mmol/L 02/28/19 17:33 BUN 10 mg/dL (9-20) 02/28/19 17:33 Creatinine 1.1 mg/dL (0.8-1.5) 02/28/19 17:33 Estimated GFR > 60 ml/min 02/28/19 17:33 BUN/Creatinine Ratio 9 % 02/28/19 17:33 Glucose 105 mg/dL (75-100) H 02/28/19 17:33 Calcium 9.0 mg/dL (8.4-10.2) 02/28/19 17:33 Magnesium 2.20 mg/dL (1.7-2.3) 02/28/19 17:40 Troponin T < 0.010 ng/mL (0.00-0.029) 02/28/19 17:33 Triglycerides 249 mg/dL (2-149) H 03/02/19 18:12 Cholesterol 167 mg/dL (50-199) 03/02/19 18:12 LDL Cholesterol Direct 104 mg/dL (50-130) 03/02/19 18:12 HDL Cholesterol 30 mg/dL (40-59) L 03/02/19 18:12 Cholesterol/HDL Ratio 5.56 % 03/02/19 18:12 Urine Color Straw (Yellow) 02/28/19 18:43 Urine Turbidity Clear (Clear) 02/28/19 18:43 Urine pH 7.0 (5.0-7.0) 02/28/19 18:43 Ur Specific [place] 1.010 (1.003-1.030) 02/28/19 18:43 Urine Protein <15 mg/dl mg/dL (Negative) 02/28/19 18:43 Urine Glucose (UA) Neg mg/dL (Negative) 02/28/19 18:43 Urine Ketones Neg mg/dL (Negative) 02/28/19 18:43 Urine Blood Neg (Negative) 02/28/19 18:43 Urine Nitrite Neg (Negative) 02/28/19 18:43 Urine Bilirubin Neg (Negative) 02/28/19 18:43 Urine Urobilinogen < 2.0 mg/dL (<2.0) 02/28/19 18:43 Ur Leukocyte Esterase Neg (Negative) 02/28/19 18:43 Urine WBC (Auto) < 1.0 /HPF (0.0-6.0) 02/28/19 18:43 Urine RBC (Auto) < 1.0 /HPF (0.0-6.0) 02/28/19 18:43 Urine Opiates Screen Presumptive negative 02/28/19 18:43 Urine Methadone Screen Presumptive negative 02/28/19 18:43 Ur Barbiturates Screen Presumptive negative 02/28/19 18:43 Ur Phencyclidine Scrn Presumptive negative 02/28/19 18:43 Ur Amphetamines Screen Presumptive negative 02/28/19 18:43 U Benzodiazepines Scrn Presumptive negative 02/28/19 18:43 Urine Cocaine Screen Presumptive negative 02/28/19 18:43 U Marijuana (THC) Screen Presumptive negative 02/28/19 18:43 Drugs of Abuse Note Disclamer 02/28/19 18:43 Active Medications - Current Medications Current Medications: Generic Name Dose Route Start Last Admin Trade Name Freq PRN Reason Stop Dose Admin Acetaminophen 650 mg 02/28/19 18:50 Tylenol PO Q4H PRN Pain, Mild (1-3) Aspirin 325 mg 03/04/19 10:00 Ecotrin PO QDAY [facility] Atorvastatin Calcium 40 mg 03/03/19 22:00 Lipitor PO QHS CHAO Bisacodyl 10 mg 02/28/19 18:50 Dulcolax ID QDAY PRN Constipation Heparin Sodium (Porcine) 5,000 unit 03/01/19 10:00 03/03/19 12:31 Heparin SUB-Q 5,000 unit Q12HR CHAO Administration Magnesium Hydroxide 30 ml 02/28/19 18:50 Milk Of Magnesia PO Q4H PRN Constipation Metoclopramide HCl 10 mg 02/28/19 18:50 Reglan PO Q6H PRN Nausea And Vomiting Ondansetron HCl 4 mg 02/28/19 18:50 Zofran IV Q8H PRN Nausea And Vomiting Promethazine HCl 25 mg 02/28/19 18:50 Phenergan ID Q6H PRN Nausea And Vomiting Sodium Chloride 10 ml 02/28/19 18:50 03/02/19 11:43 Sodium Chloride Flush Syringe 10 Ml IV 10 ml PRN PRN Administration LINE FLUSH
--- NOTE | 2019-03-04 09:00 | Progress Note ---
Assessment and Plan Assessment and plan: Acute ischemic stroke Stroke protocol initiated MRI done confirms acute stroke Echo done Carotid duplex scan done. No significant Neurology consulted Aspirin Lipitor PT recommends acute rehab placement Right hemiplegia Secondary to CVA, PT consulted, following Seizure disorder Seizure precautions, supportive care, neuro checks Continue antiseizure medications HIV (human immunodeficiency virus infection) Outpatient I/D F/U care. DVT prophylaxis SCD to ble while in bed, prophylactic heparin and GI prophylaxis Medically stable. awaiting acute rehab placement. History Interval history: Right sided weakness No problem swallowing Hospitalist Physical - Physical exam Narrative exam: Gen: Not in acute distress, sitting up in bed HEENT: Normocephalic, atraumatic Neck: supple, no JVD Heart: S1 and S2 reg, no murmurs, rubs or gallop Lungs: Clear to auscultation, no rhonchi, no wheeze Abd: soft, non tender, non distended, normal BS, Ext: No edema, no clubbing, no cyanosis Neuro: Awake, alert, oriented X 3, Right hemiplegia - Constitutional Vitals: Temp Pulse Resp BP Pulse Ox 98.9 F 87 16 120/87 96 03/04/19 05:03 03/04/19 05:03 03/04/19 05:03 03/04/19 05:03 03/04/19 05:03 General appearance: Present: no acute distress, well-nourished Results - Labs CBC & Chem 7: 02/28/19 17:33 02/28/19 17:33 Labs: Laboratory Last Values WBC 7.1 K/mm3 (4.5-11.0) 02/28/19 17:33 RBC 5.43 M/mm3 (3.65-5.03) H 02/28/19 17:33 Hgb 16.1 gm/dl (11.8-15.2) H 02/28/19 17:33 Hct 48.7 % (35.5-45.6) H 02/28/19 17:33 MCV 90 fl (84-94) 02/28/19 17:33 MCH 30 pg (28-32) 02/28/19 17:33 MCHC 33 % (32-34) 02/28/19 17:33 RDW 14.0 % (13.2-15.2) 02/28/19 17:33 Plt Count 150 K/mm3 (140-440) 02/28/19 17:33 Lymph % (Auto) 20.1 % (13.4-35.0) 02/28/19 17:33 [place] % (Auto) 9.7 % (0.0-7.3) H 02/28/19 17:33 Eos % (Auto) 0.6 % (0.0-4.3) 02/28/19 17:33 Baso % (Auto) 0.3 % (0.0-1.8) 02/28/19 17:33 Lymph # 1.4 K/mm3 (1.2-5.4) 02/28/19 17:33 [place] # 0.7 K/mm3 (0.0-0.8) 02/28/19 17:33 Eos # 0.0 K/mm3 (0.0-0.4) 02/28/19 17:33 Baso # 0.0 K/mm3 (0.0-0.1) 02/28/19 17:33 Seg Neutrophils % 69.3 % (40.0-70.0) 02/28/19 17:33 Seg Neutrophils # 4.9 K/mm3 (1.8-7.7) 02/28/19 17:33 PT 13.1 Sec. (12.2-14.9) 02/28/19 17:33 INR 1.00 (0.87-1.13) 02/28/19 17:33 APTT 30.7 Sec. (24.2-36.6) 02/28/19 17:33 Thrombin Time 16.8 Sec. (15.1-19.6) 02/28/19 17:33 Sodium 139 mmol/L (137-145) 02/28/19 17:33 Potassium 3.9 mmol/L (3.6-5.0) 02/28/19 17:33 Chloride 102.2 mmol/L (98-107) 02/28/19 17:33 Carbon Dioxide 24 mmol/L (22-30) 02/28/19 17:33 Anion Gap 17 mmol/L 02/28/19 17:33 BUN 10 mg/dL (9-20) 02/28/19 17:33 Creatinine 1.1 mg/dL (0.8-1.5) 02/28/19 17:33 Estimated GFR > 60 ml/min 02/28/19 17:33 BUN/Creatinine Ratio 9 % 02/28/19 17:33 Glucose 105 mg/dL (75-100) H 02/28/19 17:33 Calcium 9.0 mg/dL (8.4-10.2) 02/28/19 17:33 Magnesium 2.20 mg/dL (1.7-2.3) 02/28/19 17:40 Troponin T < 0.010 ng/mL (0.00-0.029) 02/28/19 17:33 Triglycerides 249 mg/dL (2-149) H 03/02/19 18:12 Cholesterol 167 mg/dL (50-199) 03/02/19 18:12 LDL Cholesterol Direct 104 mg/dL (50-130) 03/02/19 18:12 HDL Cholesterol 30 mg/dL (40-59) L 03/02/19 18:12 Cholesterol/HDL Ratio 5.56 % 03/02/19 18:12 Urine Color Straw (Yellow) 02/28/19 18:43 Urine Turbidity Clear (Clear) 02/28/19 18:43 Urine pH 7.0 (5.0-7.0) 02/28/19 18:43 Ur Specific [place] 1.010 (1.003-1.030) 02/28/19 18:43 Urine Protein <15 mg/dl mg/dL (Negative) 02/28/19 18:43 Urine Glucose (UA) Neg mg/dL (Negative) 02/28/19 18:43 Urine Ketones Neg mg/dL (Negative) 02/28/19 18:43 Urine Blood Neg (Negative) 02/28/19 18:43 Urine Nitrite Neg (Negative) 02/28/19 18:43 Urine Bilirubin Neg (Negative) 02/28/19 18:43 Urine Urobilinogen < 2.0 mg/dL (<2.0) 02/28/19 18:43 Ur Leukocyte Esterase Neg (Negative) 02/28/19 18:43 Urine WBC (Auto) < 1.0 /HPF (0.0-6.0) 02/28/19 18:43 Urine RBC (Auto) < 1.0 /HPF (0.0-6.0) 02/28/19 18:43 Urine Opiates Screen Presumptive negative 02/28/19 18:43 Urine Methadone Screen Presumptive negative 02/28/19 18:43 Ur Barbiturates Screen Presumptive negative 02/28/19 18:43 Ur Phencyclidine Scrn Presumptive negative 02/28/19 18:43 Ur Amphetamines Screen Presumptive negative 02/28/19 18:43 U Benzodiazepines Scrn Presumptive negative 02/28/19 18:43 Urine Cocaine Screen Presumptive negative 02/28/19 18:43 U Marijuana (THC) Screen Presumptive negative 02/28/19 18:43 Drugs of Abuse Note Disclamer 02/28/19 18:43 Active Medications - Current Medications Current Medications: Generic Name Dose Route Start Last Admin Trade Name Freq PRN Reason Stop Dose Admin Acetaminophen 650 mg 02/28/19 18:50 Tylenol PO Q4H PRN Pain, Mild (1-3) Aspirin 325 mg 03/04/19 10:00 Ecotrin PO QDAY [facility] Atorvastatin Calcium 40 mg 03/03/19 22:00 03/03/19 21:31 Lipitor PO 40 mg QHS [facility]AO Administration Bisacodyl 10 mg 02/28/19 18:50 Dulcolax [place] QDAY PRN Constipation Heparin Sodium (Porcine) 5,000 unit 03/01/19 10:00 03/03/19 21:32 Heparin SUB-Q 5,000 unit Q12HR [facility]AO Administration Magnesium Hydroxide 30 ml 02/28/19 18:50 Milk Of Magnesia PO Q4H PRN Constipation Metoclopramide HCl 10 mg 02/28/19 18:50 Reglan PO Q6H PRN Nausea And Vomiting Ondansetron HCl 4 mg 02/28/19 18:50 Zofran IV Q8H PRN Nausea And Vomiting Promethazine HCl 25 mg 02/28/19 18:50 Phenergan [place] Q6H PRN Nausea And Vomiting Sodium Chloride 10 ml 02/28/19 18:50 03/03/19 21:32 Sodium Chloride Flush Syringe 10 Ml IV 10 ml PRN PRN Administration LINE FLUSH
[2019-03-04] MEDS: ASPIRIN EC 325 MG TAB PO SCH (09:58)
[2019-03-04] MEDS: HEPARIN 5,000 UNIT/1 ML VIAL SUB-Q SCH ×2 (09:58→22:19)
[2019-03-05] MEDS: ASPIRIN EC 325 MG TAB PO SCH (09:41)
[2019-03-05] MEDS: HEPARIN 5,000 UNIT/1 ML VIAL SUB-Q SCH (09:41)
--- NOTE | 2019-03-05 16:56 | Progress Note ---
Assessment and Plan Assessment and plan: Acute ischemic stroke Stroke protocol initiated MRI done confirms acute stroke Echo done Carotid duplex scan done. No significant Neurology consulted Aspirin Lipitor PT recommends acute rehab placement Right hemiplegia Secondary to CVA, PT consulted, following Seizure disorder Seizure precautions, supportive care, neuro checks Continue antiseizure medications HIV (human immunodeficiency virus infection) Outpatient I/D F/U care. DVT prophylaxis SCD to ble while in bed, prophylactic heparin and GI prophylaxis Medically stable. Awaiting acute rehab placement. History Interval history: Right sided weakness No problem swallowing Hospitalist Physical - Physical exam Narrative exam: Gen: Not in acute distress, sitting up in bed HEENT: Normocephalic, atraumatic Neck: supple, no JVD Heart: S1 and S2 reg, no murmurs, rubs or gallop Lungs: Clear to auscultation, no rhonchi, no wheeze Abd: soft, non tender, non distended, normal BS, Ext: No edema, no clubbing, no cyanosis Neuro: Awake, alert, oriented X 3, Right hemiplegia - Constitutional Vitals: Temp Pulse Resp BP Pulse Ox 98.3 F 91 H 16 131/84 96 03/05/19 12:45 03/05/19 12:45 03/05/19 12:45 03/05/19 12:45 03/05/19 12:45 General appearance: Present: no acute distress, well-nourished Results - Labs CBC & Chem 7: 02/28/19 17:33 02/28/19 17:33 Labs: Laboratory Last Values WBC 7.1 K/mm3 (4.5-11.0) 02/28/19 17:33 RBC 5.43 M/mm3 (3.65-5.03) H 02/28/19 17:33 Hgb 16.1 gm/dl (11.8-15.2) H 02/28/19 17:33 Hct 48.7 % (35.5-45.6) H 02/28/19 17:33 MCV 90 fl (84-94) 02/28/19 17:33 MCH 30 pg (28-32) 02/28/19 17:33 MCHC 33 % (32-34) 02/28/19 17:33 RDW 14.0 % (13.2-15.2) 02/28/19 17:33 Plt Count 150 K/mm3 (140-440) 02/28/19 17:33 Lymph % (Auto) 20.1 % (13.4-35.0) 02/28/19 17:33 [place] % (Auto) 9.7 % (0.0-7.3) H 02/28/19 17:33 Eos % (Auto) 0.6 % (0.0-4.3) 02/28/19 17:33 Baso % (Auto) 0.3 % (0.0-1.8) 02/28/19 17:33 Lymph # 1.4 K/mm3 (1.2-5.4) 02/28/19 17:33 [place] # 0.7 K/mm3 (0.0-0.8) 02/28/19 17:33 Eos # 0.0 K/mm3 (0.0-0.4) 02/28/19 17:33 Baso # 0.0 K/mm3 (0.0-0.1) 02/28/19 17:33 Seg Neutrophils % 69.3 % (40.0-70.0) 02/28/19 17:33 Seg Neutrophils # 4.9 K/mm3 (1.8-7.7) 02/28/19 17:33 PT 13.1 Sec. (12.2-14.9) 02/28/19 17:33 INR 1.00 (0.87-1.13) 02/28/19 17:33 APTT 30.7 Sec. (24.2-36.6) 02/28/19 17:33 Thrombin Time 16.8 Sec. (15.1-19.6) 02/28/19 17:33 Sodium 139 mmol/L (137-145) 02/28/19 17:33 Potassium 3.9 mmol/L (3.6-5.0) 02/28/19 17:33 Chloride 102.2 mmol/L (98-107) 02/28/19 17:33 Carbon Dioxide 24 mmol/L (22-30) 02/28/19 17:33 Anion Gap 17 mmol/L 02/28/19 17:33 BUN 10 mg/dL (9-20) 02/28/19 17:33 Creatinine 1.1 mg/dL (0.8-1.5) 02/28/19 17:33 Estimated GFR > 60 ml/min 02/28/19 17:33 BUN/Creatinine Ratio 9 % 02/28/19 17:33 Glucose 105 mg/dL (75-100) H 02/28/19 17:33 Calcium 9.0 mg/dL (8.4-10.2) 02/28/19 17:33 Magnesium 2.20 mg/dL (1.7-2.3) 02/28/19 17:40 Troponin T < 0.010 ng/mL (0.00-0.029) 02/28/19 17:33 Triglycerides 249 mg/dL (2-149) H 03/02/19 18:12 Cholesterol 167 mg/dL (50-199) 03/02/19 18:12 LDL Cholesterol Direct 104 mg/dL (50-130) 03/02/19 18:12 HDL Cholesterol 30 mg/dL (40-59) L 03/02/19 18:12 Cholesterol/HDL Ratio 5.56 % 03/02/19 18:12 Urine Color Straw (Yellow) 02/28/19 18:43 Urine Turbidity Clear (Clear) 02/28/19 18:43 Urine pH 7.0 (5.0-7.0) 02/28/19 18:43 Ur Specific [place] 1.010 (1.003-1.030) 02/28/19 18:43 Urine Protein <15 mg/dl mg/dL (Negative) 02/28/19 18:43 Urine Glucose (UA) Neg mg/dL (Negative) 02/28/19 18:43 Urine Ketones Neg mg/dL (Negative) 02/28/19 18:43 Urine Blood Neg (Negative) 02/28/19 18:43 Urine Nitrite Neg (Negative) 02/28/19 18:43 Urine Bilirubin Neg (Negative) 02/28/19 18:43 Urine Urobilinogen < 2.0 mg/dL (<2.0) 02/28/19 18:43 Ur Leukocyte Esterase Neg (Negative) 02/28/19 18:43 Urine WBC (Auto) < 1.0 /HPF (0.0-6.0) 02/28/19 18:43 Urine RBC (Auto) < 1.0 /HPF (0.0-6.0) 02/28/19 18:43 Urine Opiates Screen Presumptive negative 02/28/19 18:43 Urine Methadone Screen Presumptive negative 02/28/19 18:43 Ur Barbiturates Screen Presumptive negative 02/28/19 18:43 Ur Phencyclidine Scrn Presumptive negative 02/28/19 18:43 Ur Amphetamines Screen Presumptive negative 02/28/19 18:43 U Benzodiazepines Scrn Presumptive negative 02/28/19 18:43 Urine Cocaine Screen Presumptive negative 02/28/19 18:43 U Marijuana (THC) Screen Presumptive negative 02/28/19 18:43 Drugs of Abuse Note Disclamer 02/28/19 18:43 Active Medications - Current Medications Current Medications: Generic Name Dose Route Start Last Admin Trade Name Freq PRN Reason Stop Dose Admin Acetaminophen 650 mg 02/28/19 18:50 Tylenol PO Q4H PRN Pain, Mild (1-3) Aspirin 325 mg 03/04/19 10:00 03/05/19 09:41 Ecotrin PO 325 mg QDAY CHAO Administration Atorvastatin Calcium 40 mg 03/03/19 22:00 03/04/19 22:18 Lipitor PO 40 mg QHS CHAO Administration Bisacodyl 10 mg 02/28/19 18:50 Dulcolax NH QDAY PRN Constipation Heparin Sodium (Porcine) 5,000 unit 03/01/19 10:00 03/05/19 09:41 Heparin SUB-Q 5,000 unit Q12HR CHAO Administration Magnesium Hydroxide 30 ml 02/28/19 18:50 Milk Of Magnesia PO Q4H PRN Constipation Metoclopramide HCl 10 mg 02/28/19 18:50 Reglan PO Q6H PRN Nausea And Vomiting Ondansetron HCl 4 mg 02/28/19 18:50 Zofran IV Q8H PRN Nausea And Vomiting Promethazine HCl 25 mg 02/28/19 18:50 Phenergan NH Q6H PRN Nausea And Vomiting Sodium Chloride 10 ml 02/28/19 18:50 03/03/19 21:32 Sodium Chloride Flush Syringe 10 Ml IV 10 ml PRN PRN Administration LINE FLUSH
[2019-03-06] MEDS: HEPARIN 5,000 UNIT/1 ML VIAL SUB-Q SCH ×4 (00:14→21:19)
--- NOTE | 2019-03-06 09:10 | Progress Note ---
Assessment and Plan Assessment and plan: 63 YO Male with HIV not currently taking medication, Seizure Disorder presented to ED for evaluation. Patient stated that he experienced sudden onset numbness, Right arm and leg weakness, and slurred speech that began at 10:00hrs while talking on the telephone to a member of his family. EMS notified and upon arrival the patient was found to have neurologic deficit. A code stroke was called and the patient transported to [facility]. Pt seen and evaluated in ED and found to have symptoms consistent with CVA. Teleneurology consulted, but patient is deemed not a candidate for TPA. he was admitted. MRI confirmed acute ischemic stroke. He was seen by PT and acurte rehab recommended. He is awaiting placement. Acute ischemic stroke left evelyn Stroke protocol initiated MRI done confirms acute stroke Echo done Carotid duplex scan done. No significant stenosis Neurology consulted Aspirin Lipitor PT recommends acute rehab placement Right hemiplegia Secondary to CVA, PT consulted, following Seizure disorder Seizure precautions, supportive care, neuro checks Continue antiseizure medications HIV (human immunodeficiency virus infection) Outpatient I/D F/U care. DVT prophylaxis SCD to ble while in bed, prophylactic heparin and GI prophylaxis Medically stable. Awaiting acute rehab placement. History Interval history: Right sided weakness No problem swallowing Hospitalist Physical - Physical exam Narrative exam: Gen: Not in acute distress, sitting up in bed HEENT: Normocephalic, atraumatic Neck: supple, no JVD Heart: S1 and S2 reg, no murmurs, rubs or gallop Lungs: Clear to auscultation, no rhonchi, no wheeze Abd: soft, non tender, non distended, normal BS, Ext: No edema, no clubbing, no cyanosis Neuro: Awake, alert, oriented X 3, Right hemiplegia - Constitutional Vitals: Temp Pulse Resp BP Pulse Ox 98.2 F 87 18 124/88 93 03/06/19 05:22 03/06/19 05:22 03/06/19 05:22 03/06/19 05:22 03/06/19 05:22 General appearance: Present: no acute distress, well-nourished Results - Labs CBC & Chem 7: 02/28/19 17:33 02/28/19 17:33 Labs: Laboratory Last Values WBC 7.1 K/mm3 (4.5-11.0) 02/28/19 17:33 RBC 5.43 M/mm3 (3.65-5.03) H 02/28/19 17:33 Hgb 16.1 gm/dl (11.8-15.2) H 02/28/19 17:33 Hct 48.7 % (35.5-45.6) H 02/28/19 17:33 MCV 90 fl (84-94) 02/28/19 17:33 MCH 30 pg (28-32) 02/28/19 17:33 MCHC 33 % (32-34) 02/28/19 17:33 RDW 14.0 % (13.2-15.2) 02/28/19 17:33 Plt Count 150 K/mm3 (140-440) 02/28/19 17:33 Lymph % (Auto) 20.1 % (13.4-35.0) 02/28/19 17:33 [place] % (Auto) 9.7 % (0.0-7.3) H 02/28/19 17:33 Eos % (Auto) 0.6 % (0.0-4.3) 02/28/19 17:33 Baso % (Auto) 0.3 % (0.0-1.8) 02/28/19 17: Lymph # 1.4 K/mm3 (1.2-5.4) 02/28/19 17:33 [place] # 0.7 K/mm3 (0.0-0.8) 02/28/19 17:33 Eos # 0.0 K/mm3 (0.0-0.4) 02/28/19 17:33 Baso # 0.0 K/mm3 (0.0-0.1) 02/28/19 17:33 Seg Neutrophils % 69.3 % (40.0-70.0) 02/28/19 17: Seg Neutrophils # 4.9 K/mm3 (1.8-7.7) 02/28/19 17:33 PT 13.1 Sec. (12.2-14.9) 02/28/19 17:33 INR 1.00 (0.87-1.13) 02/28/19 17:33 APTT 30.7 Sec. (24.2-36.6) 02/28/19 17:33 Thrombin Time 16.8 Sec. (15.1-19.6) 02/28/19 17:33 Sodium 139 mmol/L (137-145) 02/28/19 17:33 Potassium 3.9 mmol/L (3.6-5.0) 02/28/19 17:33 Chloride 102.2 mmol/L (98-107) 02/28/19 17:33 Carbon Dioxide 24 mmol/L (22-30) 02/28/19 17:33 Anion Gap 17 mmol/L 02/28/19 17:33 BUN 10 mg/dL (9-20) 02/28/19 17:33 Creatinine 1.1 mg/dL (0.8-1.5) 02/28/19 17:33 Estimated GFR > 60 ml/min 02/28/19 17:33 BUN/Creatinine Ratio 9 % 02/28/19 17:33 Glucose 105 mg/dL (75-100) H 02/28/19 17:33 Calcium 9.0 mg/dL (8.4-10.2) 02/28/19 17:33 Magnesium 2.20 mg/dL (1.7-2.3) 02/28/19 17:40 Troponin T < 0.010 ng/mL (0.00-0.029) 02/28/19 17:33 Triglycerides 249 mg/dL (2-149) H 03/02/19 18:12 Cholesterol 167 mg/dL (50-199) 03/02/19 18:12 LDL Cholesterol Direct 104 mg/dL (50-130) 03/02/19 18:12 HDL Cholesterol 30 mg/dL (40-59) L 03/02/19 18:12 Cholesterol/HDL Ratio 5.56 % 03/02/19 18:12 Urine Color Straw (Yellow) 02/28/19 18:43 Urine Turbidity Clear (Clear) 02/28/19 18:43 Urine pH 7.0 (5.0-7.0) 02/28/19 18:43 Ur Specific [place] 1.010 (1.003-1.030) 02/28/19 18:43 Urine Protein <15 mg/dl mg/dL (Negative) 02/28/19 18:43 Urine Glucose (UA) Neg mg/dL (Negative) 02/28/19 18:43 Urine Ketones Neg mg/dL (Negative) 02/28/19 18:43 Urine Blood Neg (Negative) 02/28/19 18:43 Urine Nitrite Neg (Negative) 02/28/19 18:43 Urine Bilirubin Neg (Negative) 02/28/19 18:43 Urine Urobilinogen < 2.0 mg/dL (<2.0) 02/28/19 18:43 Ur Leukocyte Esterase Neg (Negative) 02/28/19 18:43 Urine WBC (Auto) < 1.0 /HPF (0.0-6.0) 02/28/19 18:43 Urine RBC (Auto) < 1.0 /HPF (0.0-6.0) 02/28/19 18:43 Urine Opiates Screen Presumptive negative 02/28/19 18:43 Urine Methadone Screen Presumptive negative 02/28/19 18:43 Ur Barbiturates Screen Presumptive negative 02/28/19 18:43 Ur Phencyclidine Scrn Presumptive negative 02/28/19 18:43 Ur Amphetamines Screen Presumptive negative 02/28/19 18:43 U Benzodiazepines Scrn Presumptive negative 02/28/19 18:43 Urine Cocaine Screen Presumptive negative 02/28/19 18:43 U Marijuana (THC) Screen Presumptive negative 02/28/19 18:43 Drugs of Abuse Note Disclamer 02/28/19 18:43 Active Medications - Current Medications Current Medications: Generic Name Dose Route Start Last Admin Trade Name Freq PRN Reason Stop Dose Admin Acetaminophen 650 mg 02/28/19 18:50 Tylenol PO Q4H PRN Pain, Mild (1-3) Aspirin 325 mg 03/04/19 10:00 03/05/19 09:41 Ecotrin PO 325 mg QDAY CHAO Administration Atorvastatin Calcium 40 mg 03/03/19 22:00 03/06/19 00:14 Lipitor PO 40 mg QHS CHAO Administration Bisacodyl 10 mg 02/28/19 18:50 Dulcolax [place] QDAY PRN Constipation Heparin Sodium (Porcine) 5,000 unit 03/01/19 10:00 03/06/19 00:14 Heparin SUB-Q 5,000 unit Q12HR CHAO Administration Magnesium Hydroxide 30 ml 02/28/19 18:50 Milk Of Magnesia PO Q4H PRN Constipation Metoclopramide HCl 10 mg 02/28/19 18:50 Reglan PO Q6H PRN Nausea And Vomiting Ondansetron HCl 4 mg 02/28/19 18:50 Zofran IV Q8H PRN Nausea And Vomiting Promethazine HCl 25 mg 02/28/19 18:50 Phenergan [place] Q6H PRN Nausea And Vomiting Sodium Chloride 10 ml 02/28/19 18:50 03/06/19 00:14 Sodium Chloride Flush Syringe 10 Ml IV 10 ml PRN PRN Administration LINE FLUSH
[2019-03-06] MEDS: ASPIRIN EC 325 MG TAB PO SCH (11:15)
[2019-03-07] MEDS: ASPIRIN EC 325 MG TAB PO SCH (09:52)
[2019-03-07] MEDS: HEPARIN 5,000 UNIT/1 ML VIAL SUB-Q SCH ×2 (09:52→22:26)
--- NOTE | 2019-03-07 09:57 | Progress Note ---
Subjective Date of service: 03/07/19 Principal diagnosis: CVA with Rt hemiplegia Interval history: I went over the MRI report and reviewed all the images myself there are multiple areas of severe atrophy and areas of chronic ischemic infarcts porgnosis not good given extensive nature of the damage feel that majority is very chronic do not see much in the way of acute infarcts agree with medical management plan per Objective - Vital Sign Vital Signs - 12hr 03/06/19 03/07/19 23:40 06:30 Temperature 98.9 F 97.4 F L Pulse Rate 84 84 Respiratory 20 18 Rate Blood Pressure 158/100 130/92 O2 Sat by Pulse 96 98 Oximetry - Laboratory Findings CBC and BMP: 02/28/19 17:33 02/28/19 17:33 Abnormal Lab Findings: Abnormal Labs 02/28/19 02/28/19 03/02/19 17:33 17:33 18:12 RBC 5.43 H Hgb 16.1 H Hct 48.7 H [place] % (Auto) 9.7 H Glucose 105 H Triglycerides 249 H HDL Cholesterol 30 L
--- NOTE | 2019-03-07 12:40 | Progress Note ---
Assessment and Plan Acute ischemic stroke left evelyn Stroke protocol initiated MRI done confirms acute stroke Echo done EF of 50-60% with no intramural thrombus Carotid duplex scan done. No significant stenosis Neurology consulted Aspirin Lipitor PT recommends acute rehab placement Right hemiplegia Secondary to CVA, PT consulted, following Seizure disorder Seizure precautions, supportive care, neuro checks Continue antiseizure medications HIV (human immunodeficiency virus infection) Outpatient I/D F/U care. DVT prophylaxis SCD while in bed, prophylactic heparin and GI prophylaxis Medically stable. Awaiting acute rehab placement. Subjective Date of service: 03/07/19 Principal diagnosis: CVA with Rt hemiplegia Interval history: Patient seen and examined Objective - Exam Narrative Exam: Constitutional: Well-nourished well-developed. In no distress Head: Normocephalic atraumatic Eyes: Pupils are equal round and reactive to light Nose: No enlarged turbinates, no septal deviation. Mouth: Moist mucous membranes. Neck: Supple no thyromegaly. No bruit. No JVD Heart: Regular rate and rhythm, S1-S2 normal. No rubs murmurs or gallop Lungs: Clear to auscultation bilaterally. no rales or rhonchi Abdomen: Soft, nontender. Bowel sound are present. Extremities: No edema, no cyanosis, no clubbing. Neuro: Dysarthria with right-sided weakness Skin: No rashes or hyperpigmented spots Musculoskeletal system: No joint pain or swelling Hematological: No petechia or subcutanous hemorrhages. Immunological: No multiple septic spots on the skin Lymphatic: No generalized lymphadenopathy Psychiatry: Euthymic. Calm. - Constitutional Vitals: Vital Signs - 12hr 03/07/19 06:30 Temperature 97.4 F L Pulse Rate 84 Respiratory 18 Rate Blood Pressure 130/92 O2 Sat by Pulse 98 Oximetry - Labs CBC & Chem 7: 02/28/19 17:33 02/28/19 17:33
--- NOTE | 2019-03-08 00:59 | Consultation ---
HISTORY OF PRESENT ILLNESS: This is a 63-year-old white male that presents with a history of being admitted for HIV and having a prior history of strokes in 2009. He apparently developed right-sided weakness and numbness. Prior to admission, had difficulty with being confused, disoriented, was brought by family members, stated that he was having seizures according to their description. It was not known whether he was taking seizure medicine before. When he presented to the hospital, he had a minor paralysis of his right arm. Initial MRI and CT scan of the brain revealed, at the time of admission to the Emergency Room, a rather marked cerebral atrophy, a dense calcification of the vertebral artery, a very large area of loss of the rivera and white matter of the left cerebral hemisphere and a deep right internal capsule, confluent infarct in the deep white matter, marked cerebral atrophy throughout, no acute lesions, however, present. To my view, there is a rather impressive amount of atrophy present throughout and a very large area of loss of brain matter in the left hemisphere with compensatory dilation of the temporal horn of the ventricular system. The fact that all structures are in the midline is highly important. PHYSICAL EXAMINATION: The patient reveals him to be completely alert. He has a dense right hemiparesis. He is able to speak. His neck is supple. His ocular movements are full. He can swallow good. He is oriented. He follows all commands well. I do not detect any seizure activity in the patient at present time. His neck is supple. No tremors or asterixis. He is completely oriented. IMPRESSION: Severe brain atrophy. There is this history of him having HIV. I am not sure how well this is documented, but it is per history. He has a very marked amount of brain chronic atrophy present both in the right and left cerebral hemispheres, particularly so over the left hemisphere, which appears to be highly chronic. He has severe atherosclerosis of the intracranial vessels. He has had lacunar infarct confluence in the right internal capsule and in the anterior limb and I would overall state this patient has a very severe degree of ischemic and chronic atrophic changes in the brain as well as calcific arterial findings within vessels and both the internals and the basilar artery, indicative of severe atherosclerosis. Prognosis at this point is not very good for recovery given the chronic nature of this. I think the dominancy of this is intracranial disease, both small and medium vessel. Medical therapy is recommended for this disorder. [facility]# [id number] [place]ELKIS
[2019-03-08] MEDS: ASPIRIN EC 325 MG TAB PO SCH (10:40)
[2019-03-08] MEDS: HEPARIN 5,000 UNIT/1 ML VIAL SUB-Q SCH ×2 (10:40→22:21)
--- NOTE | 2019-03-08 18:58 | Progress Note ---
Assessment and Plan Acute ischemic stroke left evelyn Stroke protocol initiated MRI done confirms acute stroke Echo done EF of 50-60% with no intramural thrombus Carotid duplex scan done. No significant stenosis Neurology consulted Aspirin Lipitor PT recommends acute rehab placement Right hemiplegia Secondary to CVA, PT consulted, following Seizure disorder Seizure precautions, supportive care, neuro checks Continue antiseizure medications HIV (human immunodeficiency virus infection) Outpatient I/D F/U care. DVT prophylaxis SCD while in bed, prophylactic heparin and GI prophylaxis Medically stable. Awaiting authorization for acute rehab placement. Subjective Date of service: 03/08/19 Principal diagnosis: CVA with Rt hemiplegia Interval history: Patient seen and examined Objective - Exam Narrative Exam: Constitutional: Well-nourished well-developed. In no distress Head: Normocephalic atraumatic Eyes: Pupils are equal round and reactive to light Nose: No enlarged turbinates, no septal deviation. Mouth: Moist mucous membranes. Neck: Supple no thyromegaly. No bruit. No JVD Heart: Regular rate and rhythm, S1-S2 normal. No rubs murmurs or gallop Lungs: Clear to auscultation bilaterally. no rales or rhonchi Abdomen: Soft, nontender. Bowel sound are present. Extremities: No edema, no cyanosis, no clubbing. Neuro: Dysarthria with right-sided weakness Skin: No rashes or hyperpigmented spots Musculoskeletal system: No joint pain or swelling Hematological: No petechia or subcutanous hemorrhages. Immunological: No multiple septic spots on the skin Lymphatic: No generalized lymphadenopathy Psychiatry: Euthymic. Calm. - Constitutional Vitals: Vital Signs - 12hr 03/08/19 03/08/19 11:34 17:08 Temperature 98.5 F 99.0 F Pulse Rate 97 H 87 Respiratory 14 14 Rate Blood Pressure 119/90 125/94 O2 Sat by Pulse 89 91 Oximetry - Labs CBC & Chem 7: 02/28/19 17:33 02/28/19 17:33
[2019-03-09 09:13] LABS: Hematocrit 53.3 % (35.5-45.6); Hemoglobin 17.6 gm/dl (11.8-15.2); Mean Corpuscular HGB Conc 33 % (32-34); Mean Corpuscular Volume 90 fl (84-94); Platelet Count 174 K/mm3 (140-440); Red Blood Count 5.95 M/mm3 (3.65-5.03); Red Cell Distribution Width 14.4 % (13.2-15.2)
[2019-03-09 09:36] LABS: BUN/Creatinine Ratio 29; Blood Urea Nitrogen 26 mg/dL (9-20); Calcium 9.5 mg/dL (8.4-10.2); Hemolysis Index 20
[2019-03-09] MEDS: ASPIRIN EC 325 MG TAB PO SCH (10:32)
[2019-03-09] MEDS: HEPARIN 5,000 UNIT/1 ML VIAL SUB-Q SCH (10:33)
--- NOTE | 2019-03-09 11:30 | Discharge Summary ---
Providers - Providers Date of Admission: 02/28/19 18:50 Date of discharge: 03/09/19 Attending physician: CARMELITA PEARL 02/28/19 18:50 Occupational Therapy Evaluate and Treat [CONS] Routine Comment: Reason For Exam: Neuro deficits Physical Therapy Evaluation and Treat [CONS] Routine Comment: Reason For Exam: Neuro deficits 02/28/19 18:51 Speech Therapy Evaluation and Treat [CONS] Routine Reason For Exam: swallow eval 02/28/19 19:39 Consult to Physician [CONS] Routine Comment: Consulting Provider: CEM HANSEN Physician Instructions: Reason For Exam: cva 03/02/19 12:54 Speech Therapy Evaluation and Treat [CONS] Routine Reason For Exam: right sided weakness, word finding difficulty 03/03/19 12:44 Consult Acute Rehabilitation [CONS] Routine Consulting Provider: Physician Instructions: Reason For Exam: IRU Evaluation Primary care physician: [facility] Hospitalization Reason for admission: stroke with right hemiparesis, HIV, Condition: Fair Pertinent studies: MRI of the brain the showed subacut infarction of the evelyn. ECHO that showed LVEF of 55-60% without intramural thrombus or ASD Carotid doppler were unremarkable Procedures: none Hospital course: 63 YO Male with HIV not currently taking medication, Seizure Disorder presents to ED for evaluation. Pt states that he experienced sudden onset numbness, Right arm and leg weakness, and slurred speech that began at 10:00hrs while talking on the telephone to a member of his family. Pt states that he waited for symptoms to improve, but symptoms persisted several hours after the onset. EMS notified and upon arrival the patient was found to have neurologic deficit. A code stroke was called and the patient transported to [facility]. Pt seen and evaluated in ED and found to have symptoms consistent with CVA. Teleneurology consulted, but patient is deemed not a candidate for TPA. Pt placed in observation status and admitted to medical floor and initiated on CVA protocol. Pt denies fever, chills, CP, Palpitations, shortness of breath, BRBPR, Productive cough, skin rash, or recent ill contacts. Non prior admission for review. Had MRI of the brain that showed subacute infaction of the evelyn. Carotid doppler was unremarkable. ECHO showed no intramural thrombus. Patient improved and was discharged to acute rehab. condition on discharge was satisfactory Disposition: [facility] Time spent for discharge: 35 mins - Discharge Diagnoses (1) HIV (human immunodeficiency virus infection) Status: Acute (2) CVA (cerebral vascular accident) Status: Acute Qualifiers: Laterality of affected vessel: unspecified (3) Right hemiparesis Status: Acute (4) Seizure disorder Status: Acute Core Measure Documentation - Palliative Care Palliative Care/ Comfort Measures: Not Applicable - Core Measures Any of the following diagnoses?: stroke - Stroke Discharge Requirements Anticoag for atrial fib/atrial flutter: Not Applicable Antithrombotic for ischemic stroke: Yes Exam - Constitutional Vitals: Temp Pulse Resp BP Pulse Ox 97.9 F 84 16 113/86 95 03/09/19 04:42 03/08/19 21:15 03/09/19 04:42 03/09/19 04:42 03/08/19 21:15 Plan Follow up with: WARREN JADE MD [Primary Care Provider] - 7 Days
[2019-03-09 12:37] VITALS: BP 151/93
== END 2019-03-09 15:42 | DRG 64 ==
LOC: ED 17:19 → 3A 18:50 → OBSVTOIN 18:50
PROVIDERS: ADMIT Internal Medicine; ATTEND Family Medicine
DX: I63.9 Cerebral infarction, unspecified (principal); G93.41 Metabolic encephalopathy; G81.91 Hemiplegia, unspecified affecting right dominant side; Z21 Asymptomatic human immunodeficiency virus [HIV] infection status; R29.706 NIHSS score 6; G40.909 Epilepsy, unspecified, not intractable, without status epilepticus; Z86.73 Personal history of transient ischemic attack (TIA), and cerebral infarction without residual deficits
CPT/HCPCS: 36415; 70450; 70551; 80048; 80061; 80307; 81001; 83735; 84484; 85025; 85027; 85610; 85670; 85730; 93005; 93010; 93306; 93880; 96365; 96375; G0378; A9270-GY; J1644; J1953

== ENCOUNTER 2019-03-09 13:48 | Inpatient (IN) | payer MEDICARE ==
[2019-03-09] MEDS ORDERED: ONDANSETRON 4 MG ODT TAB PO PRN (14:50)
[2019-03-09] MEDS ORDERED: ACETAMINOPHEN 325 MG TAB PO PRN (14:50)
[2019-03-09] MEDS ORDERED: hydrALAZINE 20 MG/1 ML INJ IV PRN (14:50)
[2019-03-09] MEDS ORDERED: POLYETHYLENE GLYCOL 3350 17 GM POWDER PO PRN (14:50)
[2019-03-09] MEDS: HEPARIN 5,000 UNIT/1 ML VIAL SUB-Q SCH (22:07)
[2019-03-09] MEDS: DOCUSATE SODIUM 100 MG CAP PO SCH (22:08)
[2019-03-10] MEDS: DOCUSATE SODIUM 100 MG CAP PO SCH ×2 (08:48→21:46)
--- NOTE | 2019-03-10 09:29 | History and Physical Report ---
History of Present Illness Date: 03/10/19 Date of admission: 03/09/19 18:16 Chief Complaint: CVA History of present illness: 63-year-old male presented with right hemiparesis and slurred speech. MRI showed a subacute ischemic stroke in the left evelyn with chronic white matter changes. Was started on secondary stroke prevention. No significant stenosis seen on carotid duplex. Echocardiogram essentially normal. Patient underwent therapy and was deemed appropriate for acute inpatient rehabilitation. Patient noted to have HIV as well as seizure disorder but is not on medication for either. After the patient was medically stabilized they were transferred for further rehabilitation. All available medical records have been reviewed. Plan of care was discussed with patient and family. Past History Past Medical History: HIV/AIDS, seizures Past Surgical History: No surgical history Social history: no significant social history, single Family history: no significant family history Medications and Allergies Allergies Allergy/AdvReac Type Severity Reaction Status Date / Time No Known Allergies Allergy Unverified 02/28/19 17:20 Home Medications Medication Instructions Recorded Confirmed Last Taken Type No Known Home Medications [No 03/02/19 03/10/19 Unknown History Reported Home Medications] Active Meds: Active Medications Acetaminophen (Tylenol) 650 mg PO Q6H PRN PRN Reason: Non Cardiac Pain or Temp>100.5 Aspirin (Ecotrin) 325 mg PO QDAY REPLACED BY [facility] Atorvastatin Calcium (Lipitor) 40 mg PO QHS REPLACED BY [facility] Bisacodyl (Dulcolax) [address] QDAY PRN PRN Reason: Constipation unrelieved by MOM Docusate Sodium (Colace) 100 mg PO BID REPLACED BY [facility] Last Admin: 03/10/19 08:48 Dose: 100 mg Documented by: Heparin Sodium (Porcine) (Heparin) 5,000 unit SUB-Q Q12HR REPLACED BY [facility] Last Admin: 03/09/19 22:07 Dose: 5,000 unit Documented by: Hydralazine HCl (Apresoline) 10 mg IV Q4HR PRN PRN Reason: Hypertension Ondansetron HCl (Zofran Odt) 4 mg PO Q8H PRN PRN Reason: Nausea And Vomiting Polyethylene Glycol (Miralax 3350) 17 gm PO QDAY PRN PRN Reason: Constipation Review of Systems All systems: negative (ROS negative for 12 systems except as noted below with pertinent positives and negatives.) Constitutional: weakness Cardiovascular: no chest pain, no rapid/irregular heart beat Respiratory: no cough Gastrointestinal: no nausea, no vomiting Musculoskeletal: gait dysfunction Integumentary: no sores Neurological: balance difficulties, other (hemiparesis) Exam - Exam Narrative exam: MUSCULOSKELETAL SPECIALTY EXAM CONSTITUTIONAL: Well developed, well nourished, appropriately groomed. LEFT hand dominant. LYMPHATIC: No appreciable abnormalities palpable in neck RESPIRATORY: Clear to auscultation bilaterally, no increased work of breathing CARDIOVASCULAR: Regular Rate/ Rhythm, no swelling, edema or tenderness in BUE or BLE. Pulses palpable in all extremities. All extremities warm. GI: + bowel sounds, soft, NTTP, nondistended. INTEGUMENTARY: Normal, no lesion, rash, masses or bruising noted in extremities. MUSCULOSKELETAL: BUE and BLE normal without defect, crepitus, subluxation, effusion, arthritic changes or TTP. R 0-1/5, with right foot drop L 4+ /5 ROM decreased on right Tone flaccid on right NEURO: CN II : Visual agustin full to confrontation CN II, III : PERRL CN III, IV, : EOMI CN V : Facial sensation intact CN VII : right facial droop CN VIII : Hearing intact to finger rustle CN IX, X : Palate/uvula elevate midline, phonation normal CN XI : Intact shoulder shrug and head rotation CN XII : Tongue protrudes right Sensation intact in all extremities without extinction. Reflexes 2+ bilaterally at biceps, brachioradialis and patella. No clonus at ankles. Coordination intact in LUE. No tremor noted in 4 extremities. Naming and repetition intact. Follows 2 step commands. Aphasia not appreciated Dysarthria not appreciated Dysphagia not present Neglect possibly mild POSTURE and GAIT: Sitting posture good. Balance appears reasonable. Gait deferred until seen with therapy. PSYCH: Alert, disoriented, affect appears euthymic. Insight appears intact. - Constitutional Vitals: Vital Signs - 12hr 03/09/19 03/10/19 03/10/19 22:00 04:37 05:00 Temperature 36.6 C Pulse Rate 83 Respiratory 18 17 Rate Respiratory 17 Rate [Bilateral Lower] Blood Pressure 122/88 O2 Sat by Pulse 93 Oximetry 03/10/19 07:28 Temperature 36.5 C Pulse Rate 82 Respiratory 18 Rate Respiratory Rate [Bilateral Lower] Blood Pressure 130/86 O2 Sat by Pulse 97 Oximetry - Labs CBC & Chem 7: 03/10/19 08:24 03/10/19 08:24 Assessment and Plan Assessment and plan: Patient was assessed and evaluated for Acute Inpatient Rehab Unit. Due to the patients above-mentioned medical complexity, along with decreased functional mobility and self care, this patient continues to require and be appropriate for a comprehensive, multidisciplinary [id number] rehabilitation program. These needs cannot be met in an outpatient or other less intensive setting. The patient would continue to benefit from skilled therapy intervention for at least 3 hours per day, five days a week, with techn iques specific to the needs of the patient to improve function, activities of daily living, and reintegration into the community. The patient continues to require: -- OT to improve ROM, self-care, and learn use of adaptive equipment -- PT to improve strength and balance, functional transfers, and ambulation with energy conservation techniques to improve functional mobility -- MASH TUB COOKER OPERATOR to address cognitive deficits and swallowing ability -- 24 hour RN to ensure and prevent skin breakdown, promote progressive independence while ensuring safety, ensure education regarding medications, and incorporation of the rehabilitation at the bedside -- 24 hour Software Testing Specialist to coordinate this interdisciplinary program, and to manage/prevent complications as a result of the patients medical comorbidities. -Plan of care by day 4 -Weekly team conferences With such a program, there is a reasonable certainty that the goals individualized for this patient can be achieved within the specified length of stay. CVA: Continue secondary stroke prevention. 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 Monitor for shoulder hand syndrome. Monitor for worsening neurologic changes. HIV: Not currently on any medications. Patient told previous providers that his last numbers were undetectable for virus and he no longer takes medications. Seizure disorder: Continue seizure precaution patient also not taken any medications for this. Monitor and if there are any signs of recurrent seizure will start antiepileptic and consult neurology. Neurology saw the patient on the acute care side and did not start antiepileptics. Z73.6 ADL dysfunction: OT will work on improving ability to perform ADLs (including assistive devices) to increase independence and decrease caregiver burden and improve functional transfers and mobility training. R26.2 Difficulty walking: PT will work on gait training and proper use of assistive devices and advance as appropriate to use of stairs and outside ambulation on uneven surfaces. R26.81 Unsteadiness on feet: PT will work on improving static and dynamic sitting and standing balance as well as proper use of assistive devices to decrease risk of falls. R26.89 Abnormality of gait: PT will work to improve safety and efficiency of gait through neuromotor training and gait training along with instruction on proper use of assistive devices. M62.81 Muscle weakness: PT & OT will work on strengthening exercises to improve functional strength including mixture of closed and open kinetic chain exercises. R53.81 Debility: PT & OT will work on improving overall functional status to improve participation with ADLs, mobility and social involvement. R53.83 Fatigue: PT & OT will work on improving endurance through aerobic exercises and therapeutic activity while monitoring patients tolerance for activity and vital signs as needed. DVT ppx: Switched to Lovenox Pain: Continue physical modalities in therapy and pain medications as needed to achieve functional pain control. Sleep: Monitor and address as needed. Bowel: Monitor and address as needed. Appetite: Monitor and address as needed. Discharge planning: Pending therapy progress and care plan meeting. Will continue discussion with therapy team, SW, patient and family. Restrictions/ Precautions: Falls WB status: FWB Functional Hx: ADLs: Independent Cognition: Independent Mobility: No AD Barriers to Discharge: Decreased mobility and ability to perform self care, balance deficits, weakness Estimated Length of Stay: 14-21 days Discharge Destination: Home with family POST ADMISSION PHYSICIAN EVALUATION I have examined the patient and find that functional status, medical condition and appropriateness for IRF admission are essentially unchanged from those described in the preadmission screening. Will monitor for worsening neurologic changes, post stroke depression, shoulder-hand syndrome, DVT/PE, bowel and camilo dder complications and complications due to seizure disorder, HIV and electrolyte abnormalities. Will attempt to avoid occurrence of these issues or treat them if they present themselves.
[2019-03-10 09:59] LABS: Basophils % (Auto) 0.2 % (0.0-1.8); Eosinophils % (Auto) 0.4 % (0.0-4.3); Hematocrit 51.7 % (35.5-45.6); Hemoglobin 16.9 gm/dl (11.8-15.2); Lymphocytes # (Auto) 1.3 K/mm3 (1.2-5.4); Lymphocytes % (Auto) 21.9 % (13.4-35.0); Mean Corpuscular HGB Conc 33 % (32-34); Mean Corpuscular Volume 90 fl (84-94); Monocytes # (Auto) 0.6 K/mm3 (0.0-0.8); Monocytes % (Auto) 10.8 % (0.0-7.3); Platelet Count 168 K/mm3 (140-440); Red Blood Count 5.77 M/mm3 (3.65-5.03); Red Cell Distribution Width 14.3 % (13.2-15.2)
[2019-03-10 10:21] LABS: Alanine Aminotransferase 42 units/L (7-56); BUN/Creatinine Ratio 30; Blood Urea Nitrogen 27 mg/dL (9-20); Calcium 9.1 mg/dL (8.4-10.2); Hemolysis Index 16
[2019-03-10] MEDS: HEPARIN 5,000 UNIT/1 ML VIAL SUB-Q SCH (13:01)
[2019-03-10] MEDS: ENOXAPARIN 40 MG/0.4 ML INJ SUB-Q SCH (21:46)
[2019-03-11] MEDS: ASPIRIN EC 325 MG TAB PO SCH (08:43)
[2019-03-11] MEDS: DOCUSATE SODIUM 100 MG CAP PO SCH ×2 (08:43→23:11)
--- NOTE | 2019-03-11 09:40 | Progress Note ---
Subjective Date of service: 03/11/19 Principal diagnosis: CVA Interval history: 63-year-old male presented with right hemiparesis and slurred speech. MRI showed a subacute ischemic stroke in the left evelyn with chronic white matter changes. Was started on secondary stroke prevention. No significant stenosis seen on carotid duplex. Echocardiogram essentially normal. Patient underwent therapy and was deemed appropriate for acute inpatient rehabilitation. Patient noted to have HIV as well as seizure disorder but is not on medication for either. Patient is participating in therapy and making reasonable progress. Taking rest breaks as needed. +BM. Denies pain, palpitations, dyspnea, cough, N/V, or joint pain. As noted in addendum yesterday, patient stated suicidal ideations to speech language pathologist. Psychiatric consult was ordered yesterday. Discussed with patient this morning and he states that he thinks about on a regular basis and has in the past considered [facility]. He denies any actual attempts. His thought process in discussing the matter is not exactly clear but at this current time he is denying that he wants to actively harm himself. Difficult to ascertain how forthcoming he may be with the current information. Still feel that a psychiatric consult is warranted and he may benefit from antidepressant and /or psychotherapy. He states that he is concerned that all of his friends have and wonders why he is the only one left living. Also discussed the patient's decision to discontinue taking HIV medications. Apparently in the ER he stated he stopped taking them because his viral counts were at 0. Today he tells me that he stopped taking them 2 years ago due to cost. Yesterday he told speech therapy that he stopped taking them because he wanted to . After prolonged discussion with him about life in general and the fact that he, with proper treatment and care, could live a fruitful and long life he did admit that he would like to see Dr. levine (infectious disease) again to find out if his counts are still doing well or if he needs to go back on medication. Financial issues are a consideration for any medication that we put him on and we will need to take that into consideration when choosing any meds we prescribed. He also states that he last had a seizure in 2009 and has not had any recent seizure issues. His history of seizures is questionable and he is not at all clear about any medications he may or may not have been on or any other indications for continued treatment. Have not noted any seizure activity while he is been in the hospital. He does not know that he is ever been on any medication for seizure and does not recognize any of the names that I gave him. States that he thinks he was wrongly diagnosed with this by a nurse at [facility]. We'll continue to monitor him on seizure precautions. Neurology did not address on the acute care side. If we see a need going forward we will reconsult neurology to address seizure issue. All records, vitals, labs and medications were reviewed. No other issues per patient, nursing or therapy. Objective - Exam Narrative Exam: MUSCULOSKELETAL SPECIALTY EXAM CONSTITUTIONAL: Well developed, well nourished, appropriately groomed. LEFT hand dominant. RESPIRATORY: Clear to auscultation bilaterally, no increased work of breathing CARDIOVASCULAR: Regular Rate/ Rhythm, no swelling, edema or tenderness in BUE or BLE. All extremities warm. GI: + bowel sounds, soft, NTTP, nondistended. INTEGUMENTARY: Normal, no lesion, rash, masses or bruising noted in extremities. MUSCULOSKELETAL: BUE and BLE normal without defect, crepitus, subluxation, effusion, arthritic changes or TTP. R 0-1/5, with right foot drop L 4+ /5 ROM decreased on right Tone flaccid on right NEURO: CN VII : right facial droop CN XII : Tongue protrudes right Sensation intact in all extremities without extinction. No tremor noted in 4 extremities. Naming and repetition intact. Follows 2 step commands. Aphasia not appreciated Dysarthria not appreciated Dysphagia not present Neglect possibly mild POSTURE and GAIT: Sitting posture good. Balance appears reasonable. Gait deferred until seen with therapy. PSYCH: Alert, disoriented, affect appears euthymic, possibly a little flat affect. Questionable mild dementia. - Constitutional Vitals: Vital Signs - 12hr 03/10/19 03/11/19 03/11/19 21:42 00:23 07:11 Temperature 36.6 C 36.6 C 36.5 C Pulse Rate 86 93 H 81 Respiratory 16 18 18 Rate Blood Pressure 134/80 126/85 Blood Pressure 138/93 [Left] O2 Sat by Pulse 95 92 96 Oximetry - Allied health notes Allied health notes reviewed: nursing, PT, ST, OT FIMS assessment as documented by PT/OT/ST: Social interaction/Memory/Problem solving Social Interaction FIM Score 6. Mod. Hettinger (Mostly appropriate. May need meds. No supv.) Memory FIM Score 3. Moderate Assistance (Recognizes and remembers 50-74%.) Problem Solving FIM Score 3. Moderate Assistance (Solves routine problems 50-74%.) Locomotion- walk/wheelchair Ambulation Distance 30 - Labs CBC & Chem 7: 03/10/19 08:24 03/10/19 08:24 Labs: Laboratory Results - last 72 hr 03/10/19 03/10/19 08:24 08:24 WBC 5.9 RBC 5.77 H Hgb 16.9 H Hct 51.7 H MCV 90 MCH 29 MCHC 33 RDW 14.3 Plt Count 168 Lymph % (Auto) 21.9 [place] % (Auto) 10.8 H Eos % (Auto) 0.4 Baso % (Auto) 0.2 Lymph # 1.3 Trimble # 0.6 Eos # 0.0 Baso # 0.0 Seg Neutrophils % 66.7 Seg Neutrophils # 4.0 Sodium 143 Potassium 3.7 Chloride 104.9 Carbon Dioxide 25 Anion Gap 17 BUN 27 H Creatinine 0.9 Estimated GFR > 60 BUN/Creatinine Ratio 30 Glucose 94 Calcium 9.1 Total Bilirubin 0.50 AST 30 ALT 42 Alkaline Phosphatase 59 Total Protein 7.2 Albumin 4.0 Albumin/Globulin Ratio 1.3 Assessment and Plan CVA: Continue secondary stroke prevention. 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 Monitor for shoulder hand syndrome. Monitor for worsening neurologic changes. HIV: Not currently on any medications. Patient told previous providers that his last numbers were undetectable for virus and he no longer takes medications. Consult Dr Levine Seizure disorder: Continue seizure precaution patient also not taken any medications for this. Monitor and if there are any signs of recurrent seizure will start antiepileptic and consult neurology. Neurology saw the patient on the acute care side and did not start antiepileptics. SI: Consult psychiatry Z73.6 ADL dysfunction: OT will work on improving ability to perform ADLs (including assistive devices) to increase independence and decrease caregiver burden and improve functional transfers and mobility training. R26.2 Difficulty walking: PT will work on gait training and proper use of assistive devices and advance as appropriate to use of stairs and outside ambulation on uneven surfaces. R26.81 Unsteadiness on feet: PT will work on improving static and dynamic sitting and standing balance as well as proper use of assistive devices to decrease risk of falls. R26.89 Abnormality of gait: PT will work to improve safety and efficiency of gait through neuromotor training and gait training along with instruction on proper use of assistive devices. M62.81 Muscle weakness: PT & OT will work on strengthening exercises to improve functional strength including mixture of closed and open kinetic chain exercises. R53.81 Debility: PT & OT will work on improving overall functional status to improve participation with ADLs, mobility and social involvement. R53.83 Fatigue: PT & OT will work on improving endurance through aerobic exercises and therapeutic activity while monitoring patients tolerance for activity and vital signs as needed. DVT ppx: Switched to Lovenox Pain: Continue physical modalities in therapy and pain medications as needed to achieve functional pain control. Sleep: Monitor and address as needed. Bowel: Monitor and address as needed. Appetite: Monitor and address as needed. Discharge planning: Pending therapy progress and care plan meeting. Will continue discussion with therapy team, SW, patient and family. Restrictions/ Precautions: Falls WB status: FWB Functional Hx: ADLs: Independent Cognition: Independent Mobility: No AD Barriers to Discharge: Decreased mobility and ability to perform self care, balance deficits, weakness Estimated Length of Stay: 14-21 days Discharge Destination: Home with family
--- NOTE | 2019-03-11 16:16 | Consultation ---
History of Present Illness - Reason for Consult Consult date: 03/11/19 Reason for consult: Initial Psychiatric Evaluation - Chief Complaint Chief complaint: "I was feeling bad" - History of Present Psychiatric Illness Patient is a 63-year-old male presented with right hemiparesis and slurred speech. MRI showed a subacute ischemic stroke in the left evelyn with chronic white matter changes. Was started on secondary stroke prevention. No significant stenosis seen on carotid duplex. Echocardiogram essentially normal. Patient underwent therapy and was deemed appropriate for acute inpatient rehabilitation. Today the patient is calm and cooperative during the assessment. Throughout the assessment patient is guarded. Patient denies any past psychiatric diagnosis. Psychiatry was consulted for depression and suicidal ideations. Patient reports that he has never been diagnosed with a psychiatric diagnosis but he has always had intermittent suicidal ideations for several years. Patient has a plan to poison himself. He reports appropriate sleep, appetite, and energy. He denies HI's, A/VH's, and delusions. Current Psychiatric Medications: Patient denies. Past Psychiatric History: no previous psychiatric diagnosis; no previous inpatient psychiatric hospitalization; no outpatient psychiatrist; no previous suicide attempts. Alcohol/Drug Abuse: Patient denies drug/alcohol abuse. History of Trauma/Abuse: Patient denies trauma. Patient denies sexual, physical abuse. Past Medication Trials: Patient denies. " I don't like medication. I always tell them no." Social History: Some College; lives alone in [place], [place]; no children; no spouse; monthly income - $1560; no support system. Family History of Psychiatric Illness: Patient denies. Medications and Allergies Allergies Allergy/AdvReac Type Severity Reaction Status Date / Time No Known Allergies Allergy Unverified 02/28/19 17:20 Home Medications Medication Instructions Recorded Confirmed Last Taken Type No Known Home Medications [No 03/02/19 03/10/19 Unknown History Reported Home Medications] Active Meds: Active Medications Acetaminophen (Tylenol) 650 mg PO Q6H PRN PRN Reason: Non Cardiac Pain or Temp>100.5 Aspirin (Ecotrin) 325 mg PO QDAY [facility] Last Admin: 03/11/19 08:43 Dose: 325 mg Documented by: Atorvastatin Calcium (Lipitor) 40 mg PO QHS [facility] Last Admin: 03/10/19 21:46 Dose: 40 mg Documented by: Bisacodyl (Dulcolax) 10 mg [place] QDAY PRN PRN Reason: Constipation unrelieved by MOM Docusate Sodium (Colace) 100 mg PO BID [facility] Last Admin: 03/11/19 08:43 Dose: 100 mg Documented by: Enoxaparin Sodium (Enoxaparin) 40 mg SUB-Q QDAY@2200 [facility] Last Admin: 03/10/19 21:46 Dose: 40 mg Documented by: Hydralazine HCl (Apresoline) 10 mg IV Q4HR PRN PRN Reason: Hypertension Ondansetron HCl (Zofran Odt) 4 mg PO Q8H PRN PRN Reason: Nausea And Vomiting Polyethylene Glycol (Miralax 3350) 17 gm PO QDAY PRN PRN Reason: Constipation Mental Status Exam - Vital signs Last Vital Signs Temp 97.7 F 03/11/19 07:11 Pulse 81 03/11/19 07:11 Resp 18 03/11/19 07:11 BP 126/85 03/11/19 07:11 Pulse Ox 97 03/11/19 10:00 - Exam Narrative exam: Mental Status Exam: Appearance: in hospital attire Behavior: regular eye contact ; guarded, withdrawn Speech: regular rate and tone Mood:: " I'm alright; dysphoric, depressed Affect: congruent to mood Thought Process: circumstantial Thought Content: denies SI/HI's, AVH's, and delusions Motor Activity: ambulatory Cognition: A/O x 3 Insight: variable to fair Judgment: variable Results Result Diagrams: 03/10/19 08:24 03/10/19 08:24 All other labs normal. Assessment and Plan Assessment and plan: Impression: MDD, recurrent, severe without psychosis. Today the patient is calm and cooperative during the assessment. He denies endorses suicidal ideations with a plan to poison himself. Patient is very guarded and withdrawn. Recommendation/Plan: 1. Initiate 1013. 2. Start Zoloft 50mg po QAM depression/anxiety. Discussed the possibility of increase suicidality. Patient verbalizes understanding. Disposition: Will reassess in 24 hours. Will staff with Dr. Cornelius.
[2019-03-11] MEDS: ENOXAPARIN 40 MG/0.4 ML INJ SUB-Q SCH (23:11)
[2019-03-12] MEDS: ASPIRIN EC 325 MG TAB PO SCH (09:09)
[2019-03-12] MEDS: DOCUSATE SODIUM 100 MG CAP PO SCH ×2 (09:10→21:49)
[2019-03-12] MEDS: SERTRALINE 50 MG TAB PO SCH (09:10)
[2019-03-12 09:42] LABS: BUN/Creatinine Ratio 23; Blood Urea Nitrogen 21 mg/dL (9-20); Hemolysis Index 18
[2019-03-12 11:48] LABS: BUN/Creatinine Ratio 21; Blood Urea Nitrogen 21 mg/dL (9-20); Calcium 9.4 mg/dL (8.4-10.2); Hemolysis Index 21
[2019-03-12] MEDS: POTASSIUM CHLORIDE ER 20 MEQ TAB PO SCH ×2 (12:42→21:49)
--- NOTE | 2019-03-12 13:47 | Progress Note ---
Subjective - Reason for Consult Consult date: 03/12/19 Reason for consult: Psychiatric Follow-up Evaluation - Chief Complaint Chief complaint: "I'm tired." Patient is a 63-year-old male presented with right hemiparesis and slurred speech. MRI showed a subacute ischemic stroke in the left evelyn with chronic white matter changes. Was started on secondary stroke prevention. No significant stenosis seen on carotid duplex. Echocardiogram essentially normal. Patient underwent therapy and was deemed appropriate for acute inpatient rehabilitation. Today the patient is calm and cooperative during the assessment. He continues to be severely depressed and hopeless. Patient is guarded, withdrawn, and isolative. He reports appropriate appetite and sleep. Patient reports SI's with plan. He denies HI's , A/VH's, and delusions. He reports medication compliance. No side effects noted/reported. Mental Status Exam - Vital signs Last Vital Signs Temp 97.5 F L 03/12/19 08:00 Pulse 78 03/12/19 08:00 Resp 18 03/12/19 08:00 BP 129/77 03/12/19 08:00 Pulse Ox 95 03/12/19 08:00 - Exam Narrative exam: Mental Status Exam: Appearance: calm, cooperative Behavior: regular eye contact ; guarded, withdrawn, isolative Speech: regular rate and tone Mood:: " I'm tired" ; dysphoric, depressed, hopeless Affect: congruent to mood Thought Process: circumstantial Thought Content: denies SI/HI's, AVH's, and delusions Motor Activity: ambulatory Cognition: A/O x 3 Insight: variable to fair Judgment: variable Assessment and Plan Impression: MDD, recurrent, severe without psychosis. Today the patient is calm and cooperative during the assessment. He denies endorses suicidal ideations with a plan to poison himself. Patient is very guarded, isolative and withdrawn. Patient presents hopeless. Recommendation/Plan: 1. Initiate 1013. 2. Continue Zoloft 50mg po QAM depression/anxiety. Discussed the possibility of increase suicidality. Patient verbalizes understanding. Disposition: Will reassess in 24 hours for medication management. Will staff with Dr. Cornelius.
--- NOTE | 2019-03-12 14:34 | Progress Note ---
Subjective Date of service: 03/12/19 Principal diagnosis: CVA Interval history: 63-year-old male presented with right hemiparesis and slurred speech. MRI showed a subacute ischemic stroke in the left evelyn with chronic white matter changes. Was started on secondary stroke prevention. No significant stenosis seen on carotid duplex. Echocardiogram essentially normal. Patient underwent therapy and was deemed appropriate for acute inpatient rehabilitation. Patient noted to have HIV as well as seizure disorder but is not on medication for either. Patient is participating in therapy and making reasonable progress. Taking rest breaks as needed. +BM. Denies pain, palpitations, dyspnea, cough, N/V, or joint pain. Doing fairly well overall. Not have any side effects or symptoms from start of new medications. Potassium was slightly low after recheck of labs and have started replacement on that. We'll recheck tomorrow along with magnesium. Informed today that Dr. berry (infectious disease) is no longer at the hospital, will contact another infectious disease physician for assistance. Had several lab errors this morning, stat repeats were ordered and addressed. Patient was discussed during team conference. Making slow progress overall, but he is making progress and putting forth a good effort. We'll continue to work to improve strengthening and mobility, functioning of hemiparetic side, safety awareness and to the extent that we can cognitive improvement. He remains on 1013 via psychiatry. Discussed possibility that a stay in inpatient psychiatry may not be a bad option after he finishes with rehabilitation, we'll defer to psychiatry for this. At any rate he will need increased supervision and support after discharge. All records, vitals, labs and medications were reviewed. No other issues per patient, nursing or therapy. Objective - Exam Narrative Exam: MUSCULOSKELETAL SPECIALTY EXAM CONSTITUTIONAL: Well developed, well nourished, appropriately groomed. LEFT hand dominant. RESPIRATORY: Clear to auscultation bilaterally, no increased work of breathing CARDIOVASCULAR: Regular Rate/ Rhythm, no swelling, edema or tenderness in BUE or BLE. All extremities warm. GI: + bowel sounds, soft, NTTP, nondistended. INTEGUMENTARY: Normal, no lesion, rash, masses or bruising noted in extremities. MUSCULOSKELETAL: BUE and BLE normal without defect, crepitus, subluxation, effusion, arthritic changes or TTP. R 0-1/5, with right foot drop L 4+ /5 ROM decreased on right Tone flaccid on right NEURO: CN VII : right facial droop CN XII : Tongue protrudes right Sensation intact in all extremities without extinction. No tremor noted in 4 extremities. Naming and repetition intact. Follows 2 step commands. Aphasia not appreciated Dysarthria not appreciated Dysphagia not present Neglect possibly mild POSTURE and GAIT: Sitting posture good. Balance appears reasonable. Gait deferred until seen with therapy. PSYCH: Alert, disoriented, flat affect. Questionable mild dementia. - Constitutional Vitals: Vital Signs - 12hr 03/12/19 08:00 Temperature 36.4 C L Pulse Rate 78 Respiratory 18 Rate Blood Pressure 129/77 [Left] O2 Sat by Pulse 95 Oximetry - Allied health notes Allied health notes reviewed: nursing, PT, ST, OT FIMS assessment as documented by PT/OT/ST: Social interaction/Memory/Problem solving Social Interaction FIM Score 6. Mod. [place] (Mostly appropriate. May need meds. No supv.) Memory FIM Score 4. Minimal Assistance (Recognizes and remembers 75-90%.) Problem Solving FIM Score 4. Minimal Assistance (Solves routine problems 75-90%.) Locomotion- walk/wheelchair Ambulation Distance 30 - Labs CBC & Chem 7: 03/10/19 08:24 03/12/19 11:03 Labs: Laboratory Results - last 72 hr 03/10/19 03/10/19 03/12/19 08:24 08:24 08:56 WBC 5.9 RBC 5.77 H Hgb 16.9 H Hct 51.7 H MCV 90 MCH 29 MCHC 33 RDW 14.3 Plt Count 168 Lymph % (Auto) 21.9 [place] % (Auto) 10.8 H Eos % (Auto) 0.4 Baso % (Auto) 0.2 Lymph # 1.3 [place] # 0.6 Eos # 0.0 Baso # 0.0 Seg Neutrophils % 66.7 Seg Neutrophils # 4.0 Sodium 143 141 Potassium 3.7 2.9 L* D Chloride 104.9 102.9 Carbon Dioxide 25 21 L Anion Gap 17 20 BUN 27 H 21 H Creatinine 0.9 0.9 Estimated GFR > 60 > 60 BUN/Creatinine Ratio 30 23 Glucose 94 168 H Calcium 9.1 9.0 Total Bilirubin 0.50 AST 30 ALT 42 Alkaline Phosphatase 59 Total Protein 7.2 Albumin 4.0 Albumin/Globulin Ratio 1.3 03/12/19 11:03 WBC RBC Hgb Hct MCV MCH MCHC RDW Plt Count Lymph % (Auto) [place] % (Auto) Eos % (Auto) Baso % (Auto) Lymph # [place] # Eos # Baso # Seg Neutrophils % Seg Neutrophils # Sodium 141 Potassium 3.5 L D Chloride 103.2 Carbon Dioxide 20 L Anion Gap 21 BUN 21 H Creatinine 1.0 Estimated GFR > 60 BUN/Creatinine Ratio 21 Glucose 115 H Calcium 9.4 Total Bilirubin AST ALT Alkaline Phosphatase Total Protein Albumin Albumin/Globulin Ratio Assessment and Plan CVA: Continue secondary stroke prevention. 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 Monitor for shoulder hand syndrome. Monitor for worsening neurologic changes. HIV: Not currently on any medications. Patient told previous providers that his last numbers were undetectable for virus and he no longer takes medications. Consult ID Seizure disorder: Continue seizure precaution patient also not taken any medications for this. Monitor and if there are any signs of recurrent seizure will start antiepileptic and consult neurology. Neurology saw the patient on the acute care side and did not start antiepileptics. SI: Consult psychiatry Hypokalemia: Replace, monitor. Check magnesium in the morning Z73.6 ADL dysfunction: OT will work on improving ability to perform ADLs (including assistive devices) to increase independence and decrease caregiver burden and improve functional transfers and mobility training. R26.2 Difficulty walking: PT will work on gait training and proper use of assistive devices and advance as appropriate to use of stairs and outside ambulation on uneven surfaces. R26.81 Unsteadiness on feet: PT will work on improving static and dynamic sitting and standing balance as well as proper use of assistive devices to decrease risk of falls. R26.89 Abnormality of gait: PT will work to improve safety and efficiency of gait through neuromotor training and gait training along with instruction on proper use of assistive devices. M62.81 Muscle weakness: PT & OT will work on strengthening exercises to improve functional strength including mixture of closed and open kinetic chain exercises . R53.81 Debility: PT & OT will work on improving overall functional status to improve participation with ADLs, mobility and social involvement. R53.83 Fatigue: PT & OT will work on improving endurance through aerobic exercises and therapeutic activity while monitoring patients tolerance for activity and vital signs as needed. DVT ppx: Lovenox Pain: Continue physical modalities in therapy and pain medications as needed to achieve functional pain control. Sleep: Monitor and address as needed. Bowel: Monitor and address as needed. Appetite: Monitor and address as needed. Discharge planning: Pending therapy progress and care plan meeting. Will continue discussion with therapy team, SW, patient and family. Restrictions/ Precautions: Falls WB status: FWB Functional Hx: ADLs: Independent Cognition: Independent Mobility: No AD Barriers to Discharge: Decreased mobility and ability to perform self care, balance deficits, weakness Estimated Length of Stay: 14-21 days Discharge Destination: Home with family
--- NOTE | 2019-03-12 20:40 | IRU Plan of Care ---
Interdisciplinary Plan of Care - IP IRU INTERDISCIPLINARY PLAN: [facility] Inpatient Rehab Unit Plan of Care IRU Interdisciplinary Care Plan Start: 03/09/19 18:22 Freq: Admission then PRN Status: Active Protocol: Document 03/12/19 20:30 TH (Rec: 03/12/19 20:35 TH [id number]) Interdisciplinary Problem List Interdisciplinary Problem List Interdisciplinary Problem List Impaired Bathing/Grooming, Query Text:Answers will Trigger Problems Impaired Dressing,Impaired and Outcomes on Worklist. Mobility,Impaired Transfers, Impaired Toileting,Impaired Comprehension,Impaired Problem Solving,Impaired Memory, Knowledge Deficits,Impaired Home Management,Impaired Safety IRU Interdisciplinary Care Plan Therapy Services Therapy Services Will Include: Physical Therapy,Occupational Query Text:Patient will be seen for a Therapy,Speech Therapy minimum of 3 hours of daily therapy 5 out of 7 days a week. Therapy intensity may be adjusted within a 7 consecutive day period to effectively serve the individual needs of the patient. Treatment Frequency/Intensity/Duration Treatment Frequency 5X per week Treatment Intensity 3 hours per week Treatment Duration 14-21 days Problem Area: Eating/Swallowing Eating/Swallowing Outcomes Eating/Swallowing Interventions Problem Area: Bathing/Grooming Bathing/Grooming Outcomes Improve [place] w/ Grooming,Improve [place] w/ Bathing Bathing/Grooming Interventions ADL Training,Use of Assistive Devices,Therapeutic Exercise, Therapeutic Activity, Neuromuscular Re-Education, Balance Work,Activity Tolerance Work,Patient/ Caregiver Education Problem Area: Dressing Dressing Outcomes Improve [place] w/ UB Dressing,Improve [place] w/ LB Dressing Dressing Interventions ADL Training,Use of Assistive Devices,Neuromuscular Re- Education,Therapeutic Exercise ,Balance Work,Modalities, Patient/Caregiver Education Problem Area: Mobility Mobility Outcomes Improve [place] w/ Bed Mobility,Improve [place] w/ Ambulation,Improve [place] w/ Wheelchair Mobility Interventions Therapeutic Exercise, Neuromuscular Re-Ed.,Visual/ Perceptual Training,Activity Tolerance Work,Modalities,Use of Assistive Devices,Patient/ Caregiver Education,Bed Mobility Work,Household Mobility Work,W/C Mobility Work Problem Area: Transfers Transfers Outcomes Improve [place] w/ Bed Transfers,Improve [place] w/ Toilet Transfers,Improve [place] w/ Tub/Shower Transfers Transfers Interventions Transfer Training,Therapeutic Exercise,Neuromuscular Re- Education,Visual/Perceptual Training,Activity Tolerance Work,Modalities,Use of Assistive Devices,Patient/ Caregiver Education Problem Area: Bowel/Bladder Managment Bowel/Bladder Outcomes Bowel/Bladder Interventions Problem Area: Toileting Toileting Outcomes Improve [place] w/ Toileting Toileting Interventions ADL Training,Balance Work,Use of Assistive Devices,Patient/ Caregiver Education Problem Area: Nutrition Nutrition Outcomes Nutrition Interventions Problem Area: Comprehension Comprehension Outcomes Follow Commands Comprehension Interventions Reading Tasks,Patient/ Caregiver Education Problem Area: Expression Expression Outcomes Expression Interventions Problem Area: Problem Solving Problem Solving Outcomes Improve Problem Solving Problem Solving Interventions Cognitive Training,Visual/ Perceptual Training,Safety Education,Patient/Caregiver Education Problem Area: Memory Memory Outcomes Use Memory Aids Memory Interventions Cognitive Training,Review of Precautions,Patient/Caregiver Education Problem Area: Pain Management Pain Management Outcomes Pain Management Interventions Problem Area: Knowledge Deficits Knowledge Deficits Outcomes Knowledge Deficits Interventions Problem Area: Skin/Tissue Integrity Skin/Tissue Integrity Outcomes Skin/Tissue Integrity Interventions Problem Area: Social Interaction Social Interaction Outcomes Social Interaction Interventions Problem Area: Adjustment to Disability Adjustment to Disability Outcomes Adjustment to Disability Interventions Problem Area: Discharge Concerns Discharge Concerns Outcomes Discharge w/ Necessary Equipment,Have Home Health/ Outpatient Services Discharge Concerns Interventions Discharge Planning,Equipment Assessment, Acquisition and Placement,Family/Caregiver Conference,Patient/Family/ Caregiver Counseling,Family/ Caregiver Training Problem Area: Community Reintegration Community Reintegration Outcomes Demonstrate Understanding of Community Resources,Able to Re -Enter the Community Community Reintegration Interventions Leisure Activity,Provide Community Resources Problem Area: Home Management Home Management Outcomes Improve [place] w/ Home Management Home Management Interventions Meal Preparation,Clothing Care ,Activity Tolerance Work, Leisure Skills Development, House Cleaning,Patient/ Caregiver Education Problem Area: Safety Safety Outcomes Provide Safe Environment, Perform Selfcare Safely, Demonstrate Good Safety w/ Transfers/Mobility Safety Interventions Identify Fall Risk,[place] Pt. to Environment,Reduce Environmental Hazards Problem Area: Medication Education Medication Education Outcomes Medication Education Interventions Problem Area: Diabetes Education Diabetes Education Outcomes Diabetes Education Interventions Problem Area: Oxygenation Oxygenation Outcomes Oxygenation Interventions Problem Area: Cardiovascular Cardiovascular Outcomes Cardiovascular Interventions Physician Only Medical Prognosis and Rehabilitation Potential (Completed by Physician) Good rehab potential, overall medical prognosis guarded due to comorbidities. Will need to assist with finding outpatient follow up. Will benefit from further psychiatric care. This plan of care has been developed based on the findings from the pre- admission assessment, post admission physician evaluation, information gathered from the assessments from all therapy disciplines and other pertinent clinicians. The plan of care has been reviewed and discussed in collaboration with the interdisciplinary team. The plan of care will be reviewed and updated at least weekly.
[2019-03-12] MEDS: ENOXAPARIN 40 MG/0.4 ML INJ SUB-Q SCH (21:49)
[2019-03-13 06:27] LABS: BUN/Creatinine Ratio 21; Blood Urea Nitrogen 21 mg/dL (9-20); Calcium 8.8 mg/dL (8.4-10.2); Hemolysis Index 5
[2019-03-13] MEDS: DOCUSATE SODIUM 100 MG CAP PO SCH ×2 (09:17→22:05)
--- NOTE | 2019-03-13 10:32 | Progress Note ---
Subjective Date of service: 03/13/19 Principal diagnosis: CVA Interval history: 63-year-old male presented with right hemiparesis and slurred speech. MRI showed a subacute ischemic stroke in the left evelyn with chronic white matter changes. Was started on secondary stroke prevention. No significant stenosis seen on carotid duplex. Echocardiogram essentially normal. Patient underwent therapy and was deemed appropriate for acute inpatient rehabilitation. Patient noted to have HIV as well as seizure disorder but is not on medication for either. Patient is participating in therapy and making reasonable progress. Taking rest breaks as needed. +BM. Denies pain, palpitations, dyspnea, cough, N/V, or joint pain. Doing fairly well overall. Not have any side effects or symptoms from start of new medications. Potassium still slightly low after recheck of labs and will continue replacement of K. Magnesium wnl. Spoke with Dr Louise from [place] yesterday, he will see pt. All records, vitals, labs and medications were reviewed. No other issues per patient, nursing or therapy. Objective - Exam Narrative Exam: MUSCULOSKELETAL SPECIALTY EXAM CONSTITUTIONAL: Well developed, well nourished, appropriately groomed. LEFT hand dominant. RESPIRATORY: Clear to auscultation bilaterally, no increased work of breathing CARDIOVASCULAR: Regular Rate/ Rhythm, no swelling, edema or tenderness in BUE or BLE. All extremities warm. GI: + bowel sounds, soft, NTTP, nondistended. INTEGUMENTARY: Normal, no lesion, rash, masses or bruising noted in extremities. MUSCULOSKELETAL: BUE and BLE normal without defect, crepitus, subluxation, effusion, arthritic changes or TTP. R 0-1/5, with right foot drop L 4+ /5 ROM decreased on right Tone flaccid on right NEURO: CN VII : right facial droop CN XII : Tongue protrudes right Sensation intact in all extremities without extinction. No tremor noted in 4 extremities. Naming and repetition intact. Follows 2 step commands. Aphasia not appreciated Dysarthria not appreciated Dysphagia not present Neglect possibly mild POSTURE and GAIT: Sitting posture good. Balance appears reasonable. Gait deferred until seen with therapy. PSYCH: Alert, disoriented, flat affect. Questionable mild dementia. - Constitutional Vitals: Vital Signs - 12hr 03/13/19 03/13/19 04:53 08:03 Temperature 36.6 C 36.6 C Pulse Rate 84 88 Respiratory 16 18 Rate Blood Pressure 113/71 144/88 O2 Sat by Pulse 94 94 Oximetry - Allied health notes Allied health notes reviewed: nursing, PT, ST, OT FIMS assessment as documented by PT/OT/ST: Social interaction/Memory/Problem solving Social Interaction FIM Score 6. Mod. [place] (Mostly appropriate. May need meds. No supv.) Memory FIM Score 4. Minimal Assistance (Recognizes and remembers 75-90%.) Problem Solving FIM Score 4. Minimal Assistance (Solves routine problems 75-90%.) Transfers Mode of Locomotion: Wheelchair Bed/Chair/Wheelchair Transfers 4. Minimal Assistance (Patient = 75% or more. FIM Score Needs touching.) Locomotion- walk/wheelchair Most Frequent Mode of Wheelchair Locomotion: Ambulation Distance 30 Dressing-Upper body Patient retrieves clothing No items: Upper Body Dressing FIM Score 2. Maximal Assistance (Patient = 25% or more) Dressing-lower body Patient retrieves clothing No items: Lower Body Dressing FIM Score 2. Maximal Assistance (Patient = 25% or more) - Labs CBC & Chem 7: 03/10/19 08:24 03/13/19 05:49 Labs: Laboratory Results - last 72 hr 03/12/19 03/12/19 03/13/19 08:56 11:03 05:49 Sodium 141 141 141 Potassium 2.9 L* D 3.5 L D 3.5 L Chloride 102.9 103.2 106.7 Carbon Dioxide 21 L 20 L 24 Anion Gap 20 21 14 BUN 21 H 21 H 21 H Creatinine 0.9 1.0 1.0 Estimated GFR > 60 > 60 > 60 BUN/Creatinine Ratio 23 21 21 Glucose 168 H 115 H 90 Calcium 9.0 9.4 8.8 Magnesium 2.10 Assessment and Plan CVA: Continue secondary stroke prevention. 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 Monitor for shoulder hand syndrome. Monitor for worsening neurologic changes. HIV: Not currently on any medications. Patient told previous providers that his last numbers were undetectable for virus and he no longer takes medications. Consult ID Seizure disorder: Continue seizure precaution patient also not taken any medications for this. Monitor and if there are any signs of recurrent seizure will start antiepileptic and consult neurology. Neurology saw the patient on the acute care side and did not start antiepileptics. SI: Consult psychiatry, placed on 1013, sitter in room Hypokalemia: Replace, monitor. Z73.6 ADL dysfunction: OT will work on improving ability to perform ADLs (including assistive devices) to increase independence and decrease caregiver burden and improve functional transfers and mobility training. R26.2 Difficulty walking: PT will work on gait training and proper use of assistive devices and advance as appropriate to use of stairs and outside ambulation on uneven surfaces. R26.81 Unsteadiness on feet: PT will work on improving static and dynamic sitting and standing balance as well as proper use of assistive devices to decrease risk of falls. R26.89 Abnormality of gait: PT will work to improve safety and efficiency of gait through neuromotor training and gait training along with instruction on proper use of assistive devices. M62.81 Muscle weakness: PT & OT will work on strengthening exercises to improve functional strength including mixture of closed and open kinetic chain exercises. R53.81 Debility: PT & OT will work on improving overall functional status to improve participation with ADLs, mobility and social involvement. R53.83 Fatigue: PT & OT will work on improving endurance through aerobic exercises and therapeutic activity while monitoring patients tolerance for activity and vital signs as needed. DVT ppx: Lovenox Pain: Continue physical modalities in therapy and pain medications as needed to achieve functional pain control. Sleep: Monitor and address as needed. Bowel: Monitor and address as needed. Appetite: Monitor and address as needed. Discharge planning: Pending therapy progress and care plan meeting. Will continue discussion with therapy team, SW, patient and family. Restrictions/ Precautions: Falls WB status: FWB Functional Hx: ADLs: Independent Cognition: Independent Mobility: No AD Barriers to Discharge: Decreased mobility and ability to perform self care, balance deficits, weakness Estimated Length of Stay: 14-21 days Discharge Destination: Home with family
--- NOTE | 2019-03-13 13:40 | Progress Note ---
Subjective - Reason for Consult Consult date: 03/13/19 Reason for consult: Psychiatric Follow-up Evaluation - Chief Complaint Chief complaint: "I'm okay." Patient is a 63-year-old male presented with right hemiparesis and slurred speech. MRI showed a subacute ischemic stroke in the left evelyn with chronic white matter changes. Today the patient is calm and cooperative during the assessment. He continues to be severely depressed and hopeless. He states, " I'm going to ." Patient is guarded, withdrawn, and isolative. Unlike previous days, patient can be seen smiling. He reports appropriate appetite. Patient endorses sleep disturbances. Patient reports SI's with plan. He denies HI's , A/VH's, and delusions. He reports medication compliance. No side effects noted/reported. Mental Status Exam - Vital signs Last Vital Signs Temp 97.8 F 03/13/19 08:03 Pulse 88 03/13/19 08:03 Resp 18 03/13/19 08:03 BP 144/88 03/13/19 08:03 Pulse Ox 94 03/13/19 08:03 - Exam Narrative exam: Mental Status Exam: Appearance: calm, cooperative Behavior: regular eye contact ; guarded, withdrawn, isolative Speech: regular rate and tone Mood:: " I'm okay" ; dysphoric, depressed, hopeless Affect: congruent to mood Thought Process: circumstantial Thought Content: denies SI/HI's, AVH's, and delusions Motor Activity: ambulatory Cognition: A/O x 3 Insight: variable to fair Judgment: variable Assessment and Plan Impression: MDD, recurrent, severe without psychosis. Today the patient is calm and cooperative during the assessment. He denies endorses suicidal ideations with a plan to poison himself. Patient is very guarded, isolative and withdrawn. Patient reports that he continues to be hopeless. Recommendation/Plan: 1. Continue 1013. 2. Continue Zoloft 50mg po QAM depression/anxiety. Discussed the possibility of increase suicidality. Patient verbalizes understanding. 3. Start Melatonin 5mg po QHS insomnia. Discussed possible side effects. Patient verbalizes understanding. Disposition: Will reassess in 24 hours for medication management. Will staff with Dr. Cornelius.
--- NOTE | 2019-03-13 13:59 | Consultation ---
History of Present Illness - Reason for Consult Consult date: 03/13/19 HIV management Requesting physician: JANET JOINER III - History of Present Illness The patient is a 53-year-old male with HIV, not on medications, seizure disorder, initially admitted to the hospital on 02/28/2019 with acute onset of right-sided weakness, was found to have a subacute stroke involving the left evelyn and then transferred to acute inpatient rehabilitation. While at rehabilitation, was seen by psych due to major depression and was placed on 1013. He has otherwise been afebrile. Denies any complaints. Regarding his HIV, he was diagnosed in 1985, most of the time he has been on treatment with ARVs. In between wasn't on treatment for about 5 years, then was on Genvoya, and was undetectable. Doesn't remember CD4 count. He stopped meds 2 years ago states he could not afford them. Seems like he did not want to pay the co-pay for his ID clinic appointment with Dr. Levine. Review of Systems: General: no fevers,chills or rigors HEENT: no new visual disturbance Respiratory: No cough, sputum, hemoptysis or shortness of breath Cardiovascular: No chest pain, syncope Gastrointestinal: No nausea, vomiting or diarrhea Genitourinary: No dysuria or hematuria Musculoskeletal: No new or worsening neck pain or back pain Neurologic: No headaches, seizures Hematologic: No easy bruising or bleeding Endocrine: No night sweats or acute weight loss Skin: negative for rash, jaundice Psychiatric: No suicidal or homicidal ideation Past History Past Medical History: HIV/AIDS, seizures Past Surgical History: No surgical history Social history: no significant social history, single Family history: no significant family history Medications and Allergies Allergies Allergy/AdvReac Type Severity Reaction Status Date / Time No Known Allergies Allergy Unverified 02/28/19 17:20 Home Medications Medication Instructions Recorded Confirmed Last Taken Type No Known Home Medications [No 03/02/19 03/10/19 Unknown History Reported Home Medications] Active Meds: Active Medications Acetaminophen (Tylenol) 650 mg PO Q6H PRN PRN Reason: Non Cardiac Pain or Temp>100.5 Aspirin (Ecotrin) 325 mg PO QDAY [facility] Last Admin: 03/12/19 09:09 Dose: 325 mg Documented by: Atorvastatin Calcium (Lipitor) 40 mg PO QHS [facility] Last Admin: 03/12/19 21:49 Dose: 40 mg Documented by: Bisacodyl (Dulcolax) 10 mg [place] QDAY PRN PRN Reason: Constipation unrelieved by MOM Docusate Sodium (Colace) 100 mg PO BID [facility] Last Admin: 03/12/19 21:49 Dose: 100 mg Documented by: Enoxaparin Sodium (Enoxaparin) 40 mg SUB-Q QDAY@2200 [facility] Last Admin: 03/12/19 21:49 Dose: 40 mg Documented by: Hydralazine HCl (Apresoline) 10 mg IV Q4HR PRN PRN Reason: Hypertension Ondansetron HCl (Zofran Odt) 4 mg PO Q8H PRN PRN Reason: Nausea And Vomiting Polyethylene Glycol (Miralax 3350) 17 gm PO QDAY PRN PRN Reason: Constipation Potassium Chloride (K-Dur) 20 meq PO QDAY [facility] Stop: 03/19/19 07:59 Sertraline HCl (Zoloft) 50 mg PO QDAY [facility] Last Admin: 03/12/19 09:10 Dose: 50 mg Documented by: Physical Examination - Physical Exam Narrative exam: Physical Exam: Constitutional: Alert, cooperative. No acute distress Head, Ears, Nose: Normocephalic, atraumatic. External ears, nose normal Eyes: Conjunctivae/corneas clear. No icterus. No ptosis. Neck: Supple, no meningeal signs Oral: no thrush Cardiovascular: S1, S2 normal. Respiratory: Good air entry, clear to auscultation bilaterally GI: Soft, non-tender; bowel sounds normal. No peritoneal signs Musculoskeletal: No pedal edema, no cyanosis. Skin: No rash or abscess Hem/Lymphatic: No palpable cervical or supraclavicular nodes. No lymphangitis Psych: Mood ok. Affect normal Neurological: Awake, alert, oriented. Right hemiparesis - Constitutional Vitals: Vital Signs Temp Pulse Resp BP Pulse Ox 97.8 F 88 18 144/88 94 03/13/19 08:03 03/13/19 08:03 03/13/19 08:03 03/13/19 08:03 03/13/19 08:03 Temperature -Last 24 Hours Temperature 97.8 F Temperature 97.8 F Temperature 98.1 F Temperature 98.6 F Results - Labs CBC & Chem 7: 03/10/19 08:24 03/13/19 05:49 Labs: Abnormal lab results 03/13/19 Range/Units 05:49 Potassium 3.5 L (3.6-5.0) mmol/L BUN 21 H (9-20) mg/dL Assessment and Plan Cultures: None A/P: 53-year-old male with HIV, not on medications, seizure disorder, recent CVA. #HIV: he was diagnosed in 1985, used to see Dr. Levine, not on meds for 2 years. Would like to start treatment. #Acute CVA: At inpatient rehabilitation #Seizure disorder: On medications #Major depression: psych following. On 101. Recs: HIV labs ordered (HIV 4th gen combo to confirm diagnosis, PCR, Genotype, CD4 count) Release of records from Dr. Levine's office (need last labs and progress note) Will probably be a good candidate for Biktarvy to avoid any drug drug interactions with his psych meds No fever, no complaints at this time, no concern for an opportunistic infection at this time. If his CD4 count is <200, will start Bactriruben Louise MD, FACP [facility] ([facility] C: [phone] O: [phone] F: [phone]
[2019-03-13] MEDS: ASPIRIN EC 325 MG TAB PO SCH (15:21)
[2019-03-13] MEDS: SERTRALINE 50 MG TAB PO SCH (15:21)
[2019-03-13] MEDS ORDERED: POTASSIUM CHLORIDE ER 20 MEQ TAB PO ONE (16:00)
[2019-03-13] MEDS ORDERED: MELATONIN 5 MG TAB PO PRN (21:00)
[2019-03-13] MEDS: ENOXAPARIN 40 MG/0.4 ML INJ SUB-Q SCH (22:05)
[2019-03-14] MEDS: POTASSIUM CHLORIDE ER 20 MEQ TAB PO SCH ×2 (04:57→08:57)
[2019-03-14 06:50] LABS: Basophils % (Auto) 0.2 % (0.0-1.8); Eosinophils # (Auto) 0.1 K/mm3 (0.0-0.4); Hemoglobin 15.2 gm/dl (11.8-15.2); Lymphocytes # (Auto) 1.5 K/mm3 (1.2-5.4); Lymphocytes % (Auto) 24.6 % (13.4-35.0); Mean Corpuscular HGB Conc 33 % (32-34); Mean Corpuscular Volume 89 fl (84-94); Monocytes # (Auto) 0.9 K/mm3 (0.0-0.8); Monocytes % (Auto) 14.8 % (0.0-7.3); Platelet Count 175 K/mm3 (140-440); Red Blood Count 5.16 M/mm3 (3.65-5.03); Red Cell Distribution Width 14.1 % (13.2-15.2)
[2019-03-14 07:20] LABS: BUN/Creatinine Ratio 22; Blood Urea Nitrogen 22 mg/dL (9-20); Calcium 8.8 mg/dL (8.4-10.2); Hemolysis Index 5
[2019-03-14] MEDS: SERTRALINE 50 MG TAB PO SCH (08:56)
[2019-03-14] MEDS: DOCUSATE SODIUM 100 MG CAP PO SCH ×2 (08:56→21:23)
[2019-03-14] MEDS: ASPIRIN EC 325 MG TAB PO SCH (08:56)
[2019-03-14] MEDS: ENOXAPARIN 40 MG/0.4 ML INJ SUB-Q SCH (21:23)
--- NOTE | 2019-03-14 21:49 | Progress Note ---
Subjective - Reason for Consult Consult date: 03/14/19 Reason for consult: follow up - Chief Complaint Chief complaint: "I'm okay." Patient is a 63-year-old male presented with right hemiparesis and slurred speech. MRI showed a subacute ischemic stroke in the left evelyn with chronic white matter changes. Today the patient is calm and cooperative during the assessment. He denies suicidal ideation. He endorses depression. Mental Status Exam - Vital signs Last Vital Signs Temp 98.2 F 03/14/19 20:19 Pulse 83 03/14/19 20:19 Resp 20 03/14/19 20:19 BP 123/79 03/14/19 20:19 Pulse Ox 96 03/14/19 20:19 Assessment and Plan Mental Status Exam Narrative exam: Mental Status Exam: Appearance: calm, cooperative Behavior: regular eye contact Speech: regular rate and tone Mood:: depressed Affect: congruent to mood Thought Process: circumstantial Thought Content: denies SI/HI's, AVH's, and delusions Motor Activity: ambulatory Cognition: A/O x 3 Insight: variable to fair Judgment: variable Assessment and Plan Impression: MDD, recurrent, severe without psychosis. Today the patient is calm and cooperative during the assessment. He denies suicidal ideation in the last 3 days. Recommendation/Plan: 1. Continue 1013. 2. Continue Zoloft 50mg po QAM depression/anxiety. Discussed the possibility of increase suicidality. Patient verbalizes understanding. 3. continue Melatonin 5mg po QHS insomnia. Discussed possible side effects. Patient verbalizes understanding. Disposition: case management needed. will reassess need for 1013 in 24 hours continue medication management. Will staff with Dr. Cornelius.
[2019-03-15] MEDS: SERTRALINE 50 MG TAB PO SCH (08:21)
[2019-03-15] MEDS: ASPIRIN EC 325 MG TAB PO SCH (08:21)
[2019-03-15] MEDS: DOCUSATE SODIUM 100 MG CAP PO SCH ×2 (08:21→22:00)
[2019-03-15] MEDS: POTASSIUM CHLORIDE ER 20 MEQ TAB PO SCH (08:21)
[2019-03-15] MEDS: ENOXAPARIN 40 MG/0.4 ML INJ SUB-Q SCH (22:00)
--- NOTE | 2019-03-15 23:17 | XRay Report ---
CHEST 2 VIEWS INDICATION: Tachycardia/hypoxia. COMPARISON: None. FINDINGS: Support devices: None. Heart: Cardiomegaly. Lungs/Pleura: No acute air space or interstitial disease. Prominent elevation of the left hemidiaphra gm with associated gastric distention. No significant pleural effusion. IMPRESSION: No acute infiltrate. 2. Prominent elevation left hemidiaphragm with associated gastric distention. Signer Name: Arnold Naranjo MD Signed: 03/15/2019 11:13 PM Workstation Name: [id number]
[2019-03-16] MEDS: SERTRALINE 50 MG TAB PO SCH (08:21)
[2019-03-16] MEDS: DOCUSATE SODIUM 100 MG CAP PO SCH ×2 (08:21→21:49)
[2019-03-16] MEDS: ASPIRIN EC 325 MG TAB PO SCH (08:21)
[2019-03-16] MEDS: POTASSIUM CHLORIDE ER 20 MEQ TAB PO SCH (08:21)
--- NOTE | 2019-03-16 10:05 | Progress Note ---
Subjective Date of service: 03/16/19 Principal diagnosis: CVA Interval history: 63-year-old male presented with right hemiparesis and slurred speech. MRI showed a subacute ischemic stroke in the left evelyn with chronic white matter changes. Was started on secondary stroke prevention. No significant stenosis seen on carotid duplex. Echocardiogram essentially normal. Patient underwent therapy and was deemed appropriate for acute inpatient rehabilitation. Patient noted to have HIV as well as seizure disorder but is not on medication for either. Patient is participating in therapy and making reasonable progress. Taking rest breaks as needed. -BM over weekend. Called yesterday and informed that patient had tachycardia and desaturation. EKG and CXR ordered, both personally reviewed. Left hemidiaphragm. Patient able to participate in therapy without issue. Consulted pulm for assistance. Abd series ordered and NGT placed. Now blockage seen but large amount of air in bowel, may need GI or surgery if does not resolve. Denies pain, palpitations, dyspnea, cough, N/V, or joint pain. Potassium still slightly low after recheck of labs and will continue replacement of K. All records, vitals, labs and medications were reviewed. No other issues per patient, nursing or therapy. Objective - Exam Narrative Exam: MUSCULOSKELETAL SPECIALTY EXAM CONSTITUTIONAL: Well developed, well nourished, appropriately groomed. LEFT hand dominant. RESPIRATORY: Clear to auscultation bilaterally, decreased on left base. no increased work of breathing CARDIOVASCULAR: Regular Rate/ Rhythm, no swelling, edema or tenderness in BUE or BLE. All extremities warm. GI: + bowel sounds, soft, NTTP, nondistended. INTEGUMENTARY: Normal, no lesion, rash, masses or bruising noted in extremities. MUSCULOSKELETAL: BUE and BLE normal without defect, crepitus, subluxation, effusion, arthritic changes or TTP. R 0-1/5, with right foot drop L 4+ /5 ROM decreased on right Tone flaccid on right NEURO: CN VII : right facial droop CN XII : Tongue protrudes right Sensation intact in all extremities without extinction. No tremor noted in 4 extremities. Naming and repetition intact. Follows 2 step commands. Aphasia not appreciated Dysarthria not appreciated Dysphagia not present Neglect possibly mild POSTURE and GAIT: Sitting posture good. Balance appears reasonable. Gait deferred until seen with therapy. PSYCH: Alert, disoriented, flat affect. Questionable mild dementia. - Constitutional Vitals: Vital Signs - 12hr 03/15/19 03/15/19 03/16/19 23:49 23:51 04:10 Temperature 36.6 C 36.6 C 36.6 C Pulse Rate 128 H 125 H Respiratory 18 18 18 Rate Blood Pressure 100/66 96/60 Blood Pressure 100/66 [Left] O2 Sat by Pulse 96 94 Oximetry 03/16/19 03/16/19 04:13 07:39 Temperature 36.8 C Pulse Rate 83 101 H Respiratory 18 22 Rate Blood Pressure 92/60 Blood Pressure [Left] O2 Sat by Pulse 94 96 Oximetry - Allied health notes Allied health notes reviewed: nursing, PT, ST, OT FIMS assessment as documented by PT/OT/ST: Social interaction/Memory/Problem solving Social Interaction FIM Score 4. Minimal Assistance (Interacts appropriately 75-90%.) Memory FIM Score 5. Supervision (Needs cueing <10%, stressful/ unfamiliar situations.) Problem Solving FIM Score 5. Supervision (Needs cueing <10% to solve routine problems.) Transfers Mode of Locomotion: Wheelchair Bed/Chair/Wheelchair Transfers 3. Moderate Assistance (Patient = 50% or more. FIM Score Some lifting.) Locomotion- walk/wheelchair Most Frequent Mode of Wheelchair Locomotion: Ambulation Distance 30 Eating Eating FIM Score 5. Supervision/Set-Up (Needs help w/ containers, cutting meat, etc.) Dressing-Upper body Patient retrieves clothing No items: Upper Body Dressing FIM Score 2. Maximal Assistance (Patient = 25% or more) Dressing-lower body Patient retrieves clothing No items: Lower Body Dressing FIM Score 2. Maximal Assistance (Patient = 25% or more) - Labs CBC & Chem 7: 03/14/19 06:28 03/16/19 11:01 Labs: Laboratory Results - last 72 hr 03/14/19 03/14/19 06:28 06:28 WBC 6.0 RBC 5.16 H Hgb 15.2 Hct 46.0 H MCV 89 MCH 29 MCHC 33 RDW 14.1 Plt Count 175 Lymph % (Auto) 24.6 [place] % (Auto) 14.8 H Eos % (Auto) 1.0 Baso % (Auto) 0.2 Lymph # 1.5 [place] # 0.9 H Eos # 0.1 Baso # 0.0 Seg Neutrophils % 59.4 Seg Neutrophils # 3.6 Sodium 144 Potassium 3.8 Chloride 109.8 H Carbon Dioxide 24 Anion Gap 14 BUN 22 H Creatinine 1.0 Estimated GFR > 60 BUN/Creatinine Ratio 22 Glucose 96 Calcium 8.8 Assessment and Plan CVA: Continue secondary stroke prevention. 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 Monitor for shoulder hand syndrome. Monitor for worsening neurologic changes. HIV: Not currently on any medications. Patient told previous providers that his last numbers were undetectable for virus and he no longer takes medications. Consult ID Seizure disorder: Continue seizure precaution patient also not taken any medications for this. Monitor and if there are any signs of recurrent seizure will start antiepileptic and consult neurology. Neurology saw the patient on the acute care side and did not start antiepileptics. SI: Consult psychiatry, placed on 1013, sitter in room Hypokalemia: Replace, monitor. Left hemidiaphragm: Imagingg reviewed. Pulm consult. NGT placed for deco mpression. CXR/KUB in AM Z73.6 ADL dysfunction: OT will work on improving ability to perform ADLs (including assistive devices) to increase independence and decrease caregiver burden and improve functional transfers and mobility training. R26.2 Difficulty walking: PT will work on gait training and proper use of assistive devices and advance as appropriate to use of stairs and outside ambulation on uneven surfaces. R26.81 Unsteadiness on feet: PT will work on improving static and dynamic sittin g and standing balance as well as proper use of assistive devices to decrease risk of falls. R26.89 Abnormality of gait: PT will work to improve safety and efficiency of gait through neuromotor training and gait training along with instruction on proper use of assistive devices. M62.81 Muscle weakness: PT & OT will work on strengthening exercises to improve functional strength including mixture of closed and open kinetic chain exercises. R53.81 Debility: PT & OT will work on improving overall functional status to improve participation with ADLs, mobility and social involvement. R53.83 Fatigue: PT & OT will work on improving endurance through aerobic exercises and therapeutic activity while monitoring patients tolerance for activity and vital signs as needed. DVT ppx: Lovenox Pain: Continue physical modalities in therapy and pain medications as needed to achieve functional pain control. Sleep: Monitor and address as needed. Bowel: Monitor and address as needed. Appetite: Monitor and address as needed. Discharge planning: Pending therapy progress and care plan meeting. Will co ntinue discussion with therapy team, SW, patient and family. Restrictions/ Precautions: Falls WB status: FWB Functional Hx: ADLs: Independent Cognition: Independent Mobility: No AD Barriers to Discharge: Decreased mobility and ability to perform self care, balance deficits, weakness Estimated Length of Stay: 14-21 days Discharge Destination: Home with family
--- NOTE | 2019-03-16 10:37 | Consultation ---
History of Present Illness Consult date: 03/16/19 Requesting physician: JANET JOINER III Reason for consult: abnormal CXR/CT History of present illness: 63 y/o male with recent history of stroke admitted to the rehab unit. Per physician, on yesterday had some difficulty with breathing. Was placed on oxygen yesterday and is stable today per doc. CXR done last night showed significant gastric distention and elevated left hemidiaphragm. Asked for pulmonary to eval. Past History Past Medical History: HIV/AIDS, seizures Past Surgical History: No surgical history Social history: no significant social history, single Family history: no significant family history Medications and Allergies Allergies Allergy/AdvReac Type Severity Reaction Status Date / Time No Known Allergies Allergy Unverified 02/28/19 17:20 Home Medications Medication Instructions Recorded Confirmed Last Taken Type No Known Home Medications [No 03/02/19 03/10/19 Unknown History Reported Home Medications] Active Meds: Active Medications Acetaminophen (Tylenol) 650 mg PO Q6H PRN PRN Reason: Non Cardiac Pain or Temp>100.5 Aspirin (Ecotrin) 325 mg PO QDAY [facility] Last Admin: 03/16/19 08:21 Dose: 325 mg Documented by: Atorvastatin Calcium (Lipitor) 40 mg PO QHS [facility] Last Admin: 03/15/19 22:00 Dose: 40 mg Documented by: Bisacodyl (Dulcolax) 10 mg [place] QDAY PRN PRN Reason: Constipation unrelieved by MOM Docusate Sodium (Colace) 100 mg PO BID [facility] Last Admin: 03/16/19 08:21 Dose: 100 mg Documented by: Enoxaparin Sodium (Enoxaparin) 40 mg SUB-Q QDAY@2200 [facility] Last Admin: 03/15/19 22:00 Dose: 40 mg Documented by: Hydralazine HCl (Apresoline) 10 mg IV Q4HR PRN PRN Reason: Hypertension Melatonin (Melatonin) 5 mg PO QHS PRN PRN Reason: Sleep Ondansetron HCl (Zofran Odt) 4 mg PO Q8H PRN PRN Reason: Nausea And Vomiting Polyethylene Glycol (Miralax 3350) 17 gm PO QDAY PRN PRN Reason: Constipation Sertraline HCl (Zoloft) 50 mg PO QDAY [facility] Last Admin: 03/16/19 08:21 Dose: 50 mg Documented by: Physical Examination Vital signs: Vital Signs Resp 17 03/09/19 18:22 Results - Laboratory Findings CBC and BMP: 03/14/19 06:28 03/16/19 11:01 Abnormal lab findings: Abnormal Labs 03/10/19 03/10/19 03/12/19 08:24 08:24 08:56 RBC 5.77 H Hgb 16.9 H Hct 51.7 H [place] % (Auto) 10.8 H [place] # Potassium 2.9 L* D Chloride Carbon Dioxide 21 L BUN 27 H 21 H Glucose 168 H 03/12/19 03/13/19 03/14/19 11:03 05:49 06:28 RBC Hgb Hct [place] % (Auto) [place] # Potassium 3.5 L D 3.5 L Chloride 109.8 H Carbon Dioxide 20 L BUN 21 H 21 H 22 H Glucose 115 H 03/14/19 06:28 RBC 5.16 H Hgb Hct 46.0 H [place] % (Auto) 14.8 H [place] # 0.9 H Potassium Chloride Carbon Dioxide BUN Glucose Assessment and Plan 63 y/o male with abdominal distention and dyspnea secondary to the former 1. Repeat Imaging with Abdominal series 2. Essentially patient is asymptomatic on room air, in no distress. Not sure if decompression is warranted 3. May need surgery consult vs GI in regards to gasesous distention, may need to consider CT of abdomen pelvis.
--- NOTE | 2019-03-16 10:58 | Progress Note ---
Subjective - Reason for Consult Consult date: 03/16/19 Reason for consult: Psychiatry Follow-up - Chief Complaint Chief complaint: "I feel okay today" 63-year-old male presented with right hemiparesis and slurred speech. Today the patient was calm and cooperative during the assessment. She stated that he was upset when he gestured SI's. He stated that his current medical condition have been tough to deal with, but stated, "Things will get better," He stated that he is open to seeing a therapist/psychiatrist once discharged. He denies SI/HI's and AVH's. He stated that he slept "okay" last night. He denies any side effects from his medication. Mental Status Exam - Vital signs Last Vital Signs Temp 98.2 F 03/16/19 07:39 Pulse 101 H 03/16/19 07:39 Resp 22 03/16/19 07:39 BP 92/60 03/16/19 07:39 Pulse Ox 96 03/16/19 07:39 - Exam Narrative exam: MSE: Appearance: disheveled Behavior: poor eye contact Speech: slurred Mood: "okay" Affect: congruent to mood Thought Process: circumstantial Thought Content: denies SI/HI's and AVH's Motor Activity: lying in bed Cognition: A/O x 3 Insight: fair Judgment: fair Assessment and Plan Impression: MDD. Today the patient was calm and cooperative during the assessment. The patient is no threat to self. Recommendation/Plan: Rescind 1013. Continue Zoloft 50 mg PO daily for depression and Melatonin 5 mg PO HS for sleep. Discussed possible suicidality/medication induced светлана with the patient, he verbalized understanding. Dispo: The patient can follow up with [facility] for outpatient psy services. Staffed with Dr Maria Elena Cornelius.
[2019-03-16 11:34] LABS: BUN/Creatinine Ratio 23; Blood Urea Nitrogen 27 mg/dL (9-20); Calcium 8.8 mg/dL (8.4-10.2); Hemolysis Index 4
--- NOTE | 2019-03-16 13:52 | XRay Report ---
ACUTE ABDOMINAL SERIES INDICATION / CLINICAL INFORMATION: Elevated left hemidiaphragm. COMPARISON: Chest radiograph performed yesterday. FINDINGS: Upright and supine views of the abdomen demonstrate significant improvement in gaseous distention of the stomach compared to yesterday. Elevation of the left hemidiaphragm is stable. I see no evidence o f bowel obstruction, free air or mass effect. No abnormal calcification is seen. There is mild thorac olumbar scoliosis and spondylosis. The accompanying chest radiograph reveals a normal heart size and clear lungs. IMPRESSION: 1. Interval improvement of gaseous distention of the stomach since yesterday. 2. Elevation of the left hemidiaphragm is stable. No acute intra-abdominal disease. Signer Name: Parminder Platt MD Signed: 03/16/2019 1:48 PM Workstation Name: [id number]
[2019-03-16] MEDS ORDERED: PHENOL 1.4% 177 ML BOTTLE MM PRN (14:50)
--- NOTE | 2019-03-16 15:56 | XRay Report ---
ABDOMEN 1 VIEW(S) INDICATION / CLINICAL INFORMATION: check placement NGT. COMPARISON: None available. FINDINGS: TUBES / LINES: The esophagogastric tube terminates within the upper stomach.. BOWEL GAS PATTERN: No significant abnormality. FREE AIR / EXTRALUMINAL GAS: None seen. ADDITIONAL FINDINGS: No significant additional findings. IMPRESSION: No acute findings. Esophagogastric tube terminates within the upper fundus. Signer Name: Flako Morse MD Signed: 03/16/2019 3:51 PM Workstation Name: [id number]
[2019-03-16] MEDS: ENOXAPARIN 40 MG/0.4 ML INJ SUB-Q SCH (21:59)
[2019-03-16] MEDS ORDERED: SODIUM CHLORIDE 0.9% 1000 ML 1,000 ML IV SCH (22:00)
[2019-03-17] MEDS: POTASSIUM CHLORIDE ER 20 MEQ TAB PO SCH (09:02)
[2019-03-17] MEDS: SERTRALINE 50 MG TAB PO SCH (09:03)
[2019-03-17] MEDS: ASPIRIN EC 325 MG TAB PO SCH (09:03)
--- NOTE | 2019-03-17 09:38 | Progress Note ---
Assessment and Plan 63 y/o male with abdominal distention and dyspnea secondary to the former 1. Suggest asking surgery to look at KUB to determine [address] is needed and 2 if decompression is recommended. Difficult to say being that patient is keeping PO down. At this point, no further pulmonary recommendations. Will see PRN. Please call with any questions. Subjective Date of service: 03/17/19 Principal diagnosis: CVA Interval history: Repeat CXR to me looks the same but rads say slightly better. Had one done this am as well. Still with distention throughout. Pulms status is stable. Objective Vital Signs - 12hr 03/17/19 03/17/19 03/17/19 04:24 06:11 07:09 Temperature 98.0 F 98.0 F Pulse Rate 122 H 114 H 117 H Respiratory 18 18 Rate Blood Pressure 129/78 128/86 O2 Sat by Pulse 91 94 95 Oximetry CBC and BMP: 03/14/19 06:28 03/16/19 11:01 Abnormal lab findings: Abnormal Labs 03/10/19 03/10/19 03/12/19 08:24 08:24 08:56 RBC 5.77 H Hgb 16.9 H Hct 51.7 H [place] % (Auto) 10.8 H [place] # Potassium 2.9 L* D Chloride Carbon Dioxide 21 L BUN 27 H 21 H Glucose 168 H 03/12/19 03/13/19 03/14/19 11:03 05:49 06:28 RBC Hgb Hct [place] % (Auto) [place] # Potassium 3.5 L D 3.5 L Chloride 109.8 H Carbon Dioxide 20 L BUN 21 H 21 H 22 H Glucose 115 H 03/14/19 03/16/19 06:28 11:01 RBC 5.16 H Hgb Hct 46.0 H [place] % (Auto) 14.8 H [place] # 0.9 H Potassium 3.5 L Chloride Carbon Dioxide 21 L BUN 27 H Glucose
--- NOTE | 2019-03-17 09:52 | XRay Report ---
PROCEDURE: ABDOMEN FLAT AND UPRIGHT WITH SINGLE VIEW CHEST HISTORY: Follow up Left hemidiaphragm COMPARISON: 03/16/2019 TECHNIQUE: Supine and upright abdominal as well as single view chest radiographs obtained. FINDINGS: Lungs: The lungs are clear. Persistent elevation of the left hemidiaphragm. Pleural Effusion: No evidence of a pleural effusion is seen. Pneumothorax: No evidence of pneumothorax is seen. Cardiac: Stable cardiomegaly with shift of the heart to the right. Mediastinal silhouette: Widened and shifted to the right. Hilar regions: The hilar regions are normal in appearance. Pulmonary vascularity: The pulmonary vascularity is normal in appearance. Trachea: Shifted to the right. Skeletal structures: Mild scoliosis. Support hardware: None. Additional findings: None. Bowel: The bowel gas pattern is normal in appearance. No evidence of obstruction is seen. No evidence of free air is identified. The stomach is decompressed and the nasogastric tube tip follows the elev ated diaphragm. Calcifications: No abnormal calcifications over the kidneys or along the course of the ureters are se en. No phleboliths in the pelvis are seen. Osseous Structures: Scoliosis and mild degenerative change. Additional findings: None. IMPRESSION: 1. Cardiomegaly but no CHF. 2. Stable elevation of the left hemidiaphragm. 3. No pneumonia. 4. Decompression of the stomach with a nasogastric tube in place. 5. Negative abdomen. Signer Name: Zenon Cruz MD Signed: 03/17/2019 9:48 AM Workstation Name: [id number]
--- NOTE | 2019-03-17 10:02 | Progress Note ---
Subjective Date of service: 03/17/19 Principal diagnosis: CVA Interval history: 63-year-old male presented with right hemiparesis and slurred speech. MRI showed a subacute ischemic stroke in the left evelyn with chronic white matter changes. Was started on secondary stroke prevention. No significant stenosis seen on carotid duplex. Echocardiogram essentially normal. Patient underwent therapy and was deemed appropriate for acute inpatient rehabilitation. Patient noted to have HIV as well as seizure disorder but is not on medication for either. Patient is participating in therapy and making reasonable progress. Taking rest breaks as needed. -BM . Repeated on little series x-ray shows decompression. Abdominal exam still benign. Unfortunately hemidiaphragm still in place. Although not common, there are case reports of ipsilateral hemidiaphragm after a stroke in the area of the evelyn. Questioned patient again about previous chest x-rays and/or hospitalizations area he does not believe he is ever had a chest x-ray and gave me the name of a hospital that is well outside of the area that I could not find using Internet search. We'll contact surgery to ensure that there is nothing else we're missing, may need to go ahead and obtain CT chest. We'll continue to do a literature search to see about resolution, some studies show spontaneous resolution with a little time. Reviewed patient's previous vital signs on the acute care side and did not see any episodes of tachycardia like we see now. Leads me to believe this elevated hemidiaphragm is recent but that is uncertain. Denies pain, palpitations, dyspnea, cough, N/V, or joint pain. Potassium still slightly low after recheck of labs and will continue replacement of K. All records, vitals, labs and medications were reviewed. No other issues per patient, nursing or therapy. Objective - Exam Narrative Exam: MUSCULOSKELETAL SPECIALTY EXAM CONSTITUTIONAL: Well developed, well nourished, appropriately groomed. LEFT hand dominant. RESPIRATORY: Clear to auscultation bilaterally, decreased on left base. no increased work of breathing CARDIOVASCULAR: Tachycardia, regular Rhythm, no swelling, edema or tenderness in BUE or BLE. All extremities warm. GI: + bowel sounds, soft, NTTP, nondistended. NG tube INTEGUMENTARY: Normal, no lesion, rash, masses or bruising noted in extremities. MUSCULOSKELETAL: BUE and BLE normal without defect, crepitus, subluxation, effusion, arthritic changes or TTP. R 0-1/5, with right foot drop L 4+ /5 ROM decreased on right Tone flaccid on right NEURO: CN VII : right facial droop CN XII : Tongue protrudes right Sensation intact in all extremities without extinction. No tremor noted in 4 extremities. Naming and repetition intact. Follows 2 step commands. Aphasia not appreciated Dysarthria not appreciated Dysphagia not present Neglect possibly mild POSTURE and GAIT: Sitting posture good. Balance appears reasonable. Gait deferred until seen with therapy. PSYCH: Alert, disoriented, flat affect. Questionable mild dementia. - Constitutional Vitals: Vital Signs - 12hr 03/17/19 03/17/19 03/17/19 04:24 06:11 07:09 Temperature 36.7 C 36.7 C Pulse Rate 122 H 114 H 117 H Respiratory 18 18 Rate Blood Pressure 129/78 128/86 O2 Sat by Pulse 91 94 95 Oximetry - Allied health notes Allied health notes reviewed: nursing, PT, OT FIMS assessment as documented by PT/OT/ST: Social interaction/Memory/Problem solving Social Interaction FIM Score 5. Supervision (Needs supv. <10%. Needs encouragement to participate.) Memory FIM Score 3. Moderate Assistance (Recognizes and remembers 50-74%.) Problem Solving FIM Score 4. Minimal Assistance (Solves routine problems 75-90%.) Transfers Mode of Locomotion: Wheelchair Bed/Chair/Wheelchair Transfers 2. Maximal Assistance (Patient = 25% or more) FIM Score Locomotion- walk/wheelchair Most Frequent Mode of Wheelchair Locomotion: Ambulation Distance 30 Eating Eating FIM Score 5. Supervision/Set-Up (Needs help w/ c ontainers, cutting meat, etc.) Dressing-Upper body Patient retrieves clothing No items: Upper Body Dressing FIM Score 2. Maximal Assistance (Patient = 25% or more) Dressing-lower body Patient retrieves clothing No items: Lower Body Dressing FIM Score 2. Maximal Assistance (Patient = 25% or more) - Labs CBC & Chem 7: 03/14/19 06:28 03/16/19 11:01 Labs: Laboratory Results - last 72 hr 03/16/19 11:01 Sodium 139 Potassium 3.5 L Chloride 103.3 Carbon Dioxide 21 L Anion Gap 18 BUN 27 H Creatinine 1.2 Estimated GFR > 60 BUN/Creatinine Ratio 23 Glucose 84 Calcium 8.8 Assessment and Plan CVA: Continue secondary stroke prevention. 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 Monitor for shoulder hand syndrome. Monitor for worsening neurologic changes. HIV: Not currently on any medications. Patient told previous providers that his last numbers were undetectable for virus and he no longer takes medications. Consult ID Seizure disorder: Continue seizure precaution patient also not taken any medica tions for this. Monitor and if there are any signs of recurrent seizure will start antiepileptic and consult neurology. Neurology saw the patient on the acute care side and did not start antiepileptics. SI: Consult psychiatry, placed on 1013, sitter in room Hypokalemia: Replace, monitor. Left hemidiaphragm: Imaging reviewed. Pulm consult. Call surgery. NGT with expected decompression. Z73.6 ADL dysfunction: OT will work on improving ability to perform ADLs (including assistive devices) to increase independence and decrease caregiver burden and improve functional transfers and mobility training. R26.2 Difficulty walking: PT will work on gait training and proper use of assistive devices and advance as appropriate to use of stairs and outside ambulation on uneven surfaces. R26.81 Unsteadiness on feet: PT will work on improving static and dynamic sitting and standing balance as well as proper use of assistive devices to decrease risk of falls. R26.89 Abnormality of gait: PT will work to improve safety and efficiency of gait through neuromotor training and gait training along with instruction on proper use of assistive devices. M62.81 Muscle weakness: PT & OT will work on strengthening exercises to improve functional strength including mixture of closed and open kinetic chain exercises. R53.81 Debility: PT & OT will work on improving overall functional status to improve participation with ADLs, mobility and social involvement. R53.83 Fatigue: PT & OT will work on improving endurance through aerobic exercises and therapeutic activity while monitoring patients tolerance for activity and vital signs as needed. DVT ppx: Lovenox Pain: Continue physical modalities in therapy and pain medications as needed to achieve functional pain control. Sleep: Monitor and address as needed. Bowel: Monitor and address as needed. Appetite: Monitor and address as needed. Discharge planning: Pending therapy progress and care plan meeting. Will continue discussion with therapy team, SW, patient and family. Restrictions/ Precautions: Falls WB status: FWB Functional Hx: ADLs: Independent Cognition: Independent Mobility: No AD Barriers to Discharge: Decreased mobility and ability to perform self care, balance deficits, weakness Estimated Length of Stay: 14-21 days Discharge Destination: Home with family
--- NOTE | 2019-03-17 16:30 | Cat Scan Report ---
CT abdomen wo con, CT chest wo con INDICATION: left hemidiaphragm. TECHNIQUE: All CT scans at this location are performed using the following dose modulation technique: Automated exposure control. COMPARISON: None available. FINDINGS: CT chest: There is moderate elevation of the left hemidiaphragm with linear bibasilar scarring/atelec tasis. There is mild pulmonary emphysema. Solid 5 mm left upper lobe pulmonary nodule CT ABDOMEN: Liver, gallbladder, pancreas, spleen, adrenals and both kidneys appear within normal limi ts for noncontrast technique. No renal calculus, hydronephrosis or perinephric stranding changes are visualized. No free pelvic fluid or adenopathy is seen. IMPRESSION: 1. 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 Fluo roscopic sniff test may be useful to document diaphragmatic braces versus paralysis as warranted clin ically. 2. Incidental 5 mm solid left upper lobe pulmonary nodule INCIDENTAL PULMONARY NODULE RECOMMENDATIONS Solid Nodule size <6 mm -- Single or Multiple - Low Risk Patient: No routine follow-up - High Risk Patient: Optional CT at 12 months Note These recommendations do not apply to lung cancer screening, patients with immunosuppression, o r patients with known primary cancer. Note Newly detected indeterminate nodule in persons 35 years of age or older. Persons under the age of 35 should not receive follow-up unless there is a known primary cancer. Low Risk Patient -- minimal or absent history of smoking and of other known risk factors. High Risk Patient -- history of smoking or of other known risk factors. Nodule dimensions are average of long and short axes, rounded to the nearest millimeter. Based on 2017 Fleischner Society Guidelines found in Radiology 2017 284:228-243. https://doi.[email or web address] [email or web address]/radiol.[email or web address] Signer Name: Reyes Aguilar MD Signed: 03/17/2019 4:26 PM Workstation Name: [id number]
[2019-03-17 19:35] LABS: HIV-1 RNA QN PCR 5.12 Log cps/mL
[2019-03-17] MEDS: ENOXAPARIN 40 MG/0.4 ML INJ SUB-Q SCH (21:50)
[2019-03-17] MEDS: DOCUSATE SODIUM 100 MG CAP PO SCH (21:50)
[2019-03-18 07:42] LABS: BUN/Creatinine Ratio 23; Blood Urea Nitrogen 21 mg/dL (9-20); Calcium 8.8 mg/dL (8.4-10.2); Hemolysis Index 27
[2019-03-18] MEDS: DOCUSATE SODIUM 100 MG CAP PO SCH ×3 (07:42→22:06)
--- NOTE | 2019-03-18 07:50 | Progress Note ---
Subjective Date of service: 03/18/19 Principal diagnosis: CVA Interval history: 63-year-old male presented with right hemiparesis and slurred speech. MRI showed a subacute ischemic stroke in the left evelyn with chronic white matter changes. Was started on secondary stroke prevention. No significant stenosis seen on carotid duplex. Echocardiogram essentially normal. Patient underwent therapy and was deemed appropriate for acute inpatient rehabilitation. Patient noted to have HIV as well as seizure disorder but is not on medication for either. Patient is participating in therapy and making reasonable progress. Taking rest breaks as needed. -BM per record, patient states he had a bowel movement yesterday.. Spoke with surgeon (Dr. Spence) yesterday who recommended a CT abdomen and chest to look for any signs of trauma. Patient denies any prior trauma including bicycle or motor vehicle accidents or altercations. Again denies any prior chest x-rays that could be helpful in determining chronicity of the condition. Reviewed the imaging and it does not appear that there is a h ernia present. Will order a fluoroscopic sniff test to look for paralytic chris- left diaphragm. Abdominal exam still benign. Denies pain, palpitations, dyspnea, cough, N/V, or joint pain. Potassium improved. All records, vitals, labs and medications were reviewed. No other issues per patient, nursing or therapy. Objective - Exam Narrative Exam: MUSCULOSKELETAL SPECIALTY EXAM CONSTITUTIONAL: Well developed, well nourished, appropriately groomed. LEFT hand dominant. RESPIRATORY: Clear to auscultation bilaterally, decreased on left base. no increased work of breathing CARDIOVASCULAR: Tachycardia, regular Rhythm, no swelling, edema or tenderness in BUE or BLE. All extremities warm. GI: + bowel sounds, soft, NTTP, nondistended. NG tube INTEGUMENTARY: Normal, no lesion, rash, masses or bruising noted in extremities. MUSCULOSKELETAL: BUE and BLE normal without defect, crepitus, subluxation, effusion, arthritic changes or TTP. R 0-1/5, with right foot drop L 4+ /5 ROM decreased on right Tone flaccid on right NEURO: CN VII : right facial droop CN XII : Tongue protrudes right Sensation intact in all extremities without extinction. No tremor noted in 4 extremities. Naming and repetition intact. Follows 2 step commands. Aphasia not appreciated Dysarthria not appreciated Dysphagia not present Neglect possibly mild POSTURE and GAIT: Sitting posture good. Balance appears reasonable. Gait deferred until seen with therapy. PSYCH: Alert, disoriented, flat affect. Questionable mild dementia. - Constitutional Vitals: Vital Signs - 12hr 03/17/19 20:07 Temperature 37.6 C H Pulse Rate 118 H Respiratory 18 Rate Blood Pressure 116/74 O2 Sat by Pulse 93 Oximetry - Allied health notes Allied health notes reviewed: nursing, PT, ST, OT FIMS assessment as documented by PT/OT/ST: Social interaction/Memory/Problem solving Social Interaction FIM Score 6. Mod. [place] (Mostly appropriate. May need meds. No supv.) Memory FIM Score 4. Minimal Assistance (Recognizes and remembers 75-90%.) Problem Solving FIM Score 3. Moderate Assistance (Solves routine problems 50-74%.) Transfers Mode of Locomotion: Wheelchair Bed/Chair/Wheelchair Transfers 2. Maximal Assistance (Patient = 25% or more) FIM Score Locomotion- walk/wheelchair Most Frequent Mode of Wheelchair Locomotion: Ambulation Distance 30 Eating Eating FIM Score 5. Supervision/Set-Up (Needs help w/ containers, cutting meat, etc.) Dressing-Upper body Patient retrieves clothing No items: Upper Body Dressing FIM Score 2. Maximal Assistance (Patient = 25% or more) Dressing-lower body Patient retrieves clothing No items: Lower Body Dressing FIM Score 2. Maximal Assistance (Patient = 25% or more) - Labs CBC & Chem 7: 03/18/19 07:49 03/18/19 06:50 Labs: Laboratory Results - last 72 hr 03/14/19 03/16/19 03/18/19 06:28 11:01 06:50 Sodium 139 141 Potassium 3.5 L 3.8 Chloride 103.3 104.5 Carbon Dioxide 21 L 22 Anion Gap 18 18 BUN 27 H 21 H Creatinine 1.2 0.9 Estimated GFR > 60 > 60 BUN/Creatinine Ratio 23 23 Glucose 84 90 Calcium 8.8 8.8 HIV-1 RNA PCR copies/ml 595627 H HIV-1 RNA (PCR) log 5.12 H - Imaging and cardiology CT scan - abdomen: report reviewed, image reviewed CT scan - chest: report reviewed, image reviewed Assessment and Plan CVA: Continue secondary stroke prevention. 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 Monitor for shoulder hand syndrome. Monitor for worsening neurologic changes. HIV: Not currently on any medications. Patient told previous providers that his last numbers were undetectable for virus and he no longer takes medications. Consult ID Seizure disorder: Continue seizure precaution patient also not taken any medications for this. Monitor and if there are any signs of recurrent seizure will start antiepileptic and consult neurology. Neurology saw the patient on the acute care side and did not start antiepileptics. SI: Consult psychiatry, placed on 1013, sitter in room Hypokalemia: Replace, monitor. Left hemidiaphragm: Imaging reviewed. Pulm consult. Discussed with surgery, Dr. Spence. NG tube removed. CT abdomen and chest reviewed imaging and report. Fluoroscopic sniff test ordered. We'll need to find outside provider for follow-up and surveillance. Due to significant elevation, patient will have increased risk of pulmonary disease as well as cardiac issues. Z73.6 ADL dysfunction: OT will work on improving ability to perform ADLs (including assistive devices) to increase independence and decrease caregiver burden and improve functional transfers and mobility training. R26.2 Difficulty walking: PT will work on gait training and proper use of as sistive devices and advance as appropriate to use of stairs and outside ambulation on uneven surfaces. R26.81 Unsteadiness on feet: PT will work on improving static and dynamic sitting and standing balance as well as proper use of assistive devices to decrease risk of falls. R26.89 Abnormality of gait: PT will work to improve safety and efficiency of gait through neuromotor training and gait training along with instruction on proper use of assistive devices. M62.81 Muscle weakness: PT & OT will work on strengthening exercises to improve functional strength including mixture of closed and open kinetic chain exercises. R53.81 Debility: PT & OT will work on improving overall functional status to improve participation with ADLs, mobility and social involvement. R53.83 Fatigue: PT & OT will work on improving endurance through aerobic exercises and therapeutic activity while monitoring patients tolerance for activity and vital signs as needed. DVT ppx: Lovenox Pain: Continue physical modalities in therapy and pain medications as needed to achieve functional pain control. Sleep: Monitor and address as needed. Bowel: Monitor and address as needed. Appetite: Monitor and address as needed. Discharge planning: Pending therapy progress and care plan meeting. Will continue discussion with therapy team, SW, patient and family. Restrictions/ Precautions: Falls WB status: FWB Functional Hx: ADLs: Independent Cognition: Independent Mobility: No AD Barriers to Discharge: Decreased mobility and ability to perform self care, balance deficits, weakness Estimated Length of Stay: 14-21 days Discharge Destination: Home with family
[2019-03-18 08:14] LABS: Hematocrit 41.6 % (35.5-45.6); Hemoglobin 13.8 gm/dl (11.8-15.2); Mean Corpuscular HGB Conc 33 % (32-34); Mean Corpuscular Volume 89 fl (84-94); Platelet Count 155 K/mm3 (140-440); Red Blood Count 4.68 M/mm3 (3.65-5.03); Red Cell Distribution Width 14.2 % (13.2-15.2)
[2019-03-18] MEDS: SERTRALINE 50 MG TAB PO SCH (08:36)
[2019-03-18] MEDS: POTASSIUM CHLORIDE ER 20 MEQ TAB PO SCH (08:36)
[2019-03-18] MEDS: ASPIRIN EC 325 MG TAB PO SCH (08:36)
--- NOTE | 2019-03-18 12:23 | Progress Note ---
Assessment and Plan 63 y/o male with abdominal distention and dyspnea secondary to the former 1. Chronically elevated hemidiaphragm. Could be from paralysis vs some other cause. Patient is asymptomatic at present. Needs to be documented in his history for further notice. At this point, sniff test is plus minus. Most likely this has been present for some time. Whether the patient knew about it, at this point, unable to obtain. Call if questions. Subjective Date of service: 03/18/19 Principal diagnosis: CVA Interval history: No evidence of hernia seen on CT chest or abdomen. Rads fill that diaphragm chronically elevated and paralyzed. AT this point I would agree given no evidence of hernia. Objective Vital Signs - 12hr 03/18/19 03/18/19 07:28 11:21 Temperature 97.7 F 97.9 F Pulse Rate 88 97 H Respiratory 18 18 Rate Blood Pressure 106/76 114/76 O2 Sat by Pulse 95 96 Oximetry CBC and BMP: 03/18/19 07:49 03/18/19 06:50 Abnormal lab findings: Abnormal Labs 03/10/19 03/10/19 03/12/19 08:24 08:24 08:56 RBC 5.77 H Hgb 16.9 H Hct 51.7 H [place] % (Auto) 10.8 H [place] # Potassium 2.9 L* D Chloride Carbon Dioxide 21 L BUN 27 H 21 H Glucose 168 H HIV-1 RNA PCR copies/ml HIV-1 RNA (PCR) log 03/12/19 03/13/19 03/14/19 11:03 05:49 06:28 RBC Hgb Hct [place] % (Auto) [place] # Potassium 3.5 L D 3.5 L Chloride 109.8 H Carbon Dioxide 20 L BUN 21 H 21 H 22 H Glucose 115 H HIV-1 RNA PCR copies/ml HIV-1 RNA (PCR) log 03/14/19 03/14/19 03/16/19 06:28 06:28 11:01 RBC 5.16 H Hgb Hct 46.0 H [place] % (Auto) 14.8 H [place] # 0.9 H Potassium 3.5 L Chloride Carbon Dioxide 21 L BUN 27 H Glucose HIV-1 RNA PCR copies/ml 072359 H HIV-1 RNA (PCR) log 5.12 H 03/18/19 06:50 RBC Hgb Hct [place] % (Auto) [place] # Potassium Chloride Carbon Dioxide BUN 21 H Glucose HIV-1 RNA PCR copies/ml HIV-1 RNA (PCR) log
--- NOTE | 2019-03-18 15:00 | Fluoroscopy Report ---
Sniff test Indication: Question of paralyzed left hemidiaphragm. Technique: Rapid inspiration and expiration through the nose was performed while direct fluoroscopy w as directed at the diaphragms. Findings: The patient was placed supine at approximately 45 degrees upright instead of standing given history of seizure and instability. Sniffing procedure was performed and both diaphragms were evalua soraida. There is moderate elevation of the left hemidiaphragm with technically normal but more limited m ovement on the left compared to the right. It should also be noted that there was gross gaseous diste ntion of the splenic flexure/gastric bubble in this region which could theoretically also be limiting movement. No paradoxical movements were identified. Impression: Normal movement of each hemidiaphragm; however, slightly limited movement on the left wh ere the diaphragm is moderately elevated and demonstrates underlying gas-filled bowel/stomach as abov e. Fluoroscopic time: 0.9 minutes Number of fluoroscopic images: 8 Signer Name: Geo Pinon MD Signed: 03/18/2019 2:55 PM Workstation Name: [id number]
--- NOTE | 2019-03-18 16:30 | Progress Note ---
Assessment and Plan Cultures: None A/P: 53-year-old male with HIV, not on medications, seizure disorder, recent CVA. #HIV: he was diagnosed in 1985, used to see Dr. Levine, not on meds for 2 years. Would like to start treatment. IQ=942,000 on 03/14/2019 #Acute CVA: At inpatient rehabilitation #Seizure disorder: On medications #Major depression: psych following. On 1013. Recs: f/u Genotype and CD4 count - pending Will probably be a good candidate for Biktarvy to avoid any drug drug interactions with his psych meds If his CD4 count is <200, will start Bactrim will follow Aleyda Turk MD Subjective Date of service: 03/18/19 Principal diagnosis: CVA Interval history: Patient with no complaints no fever Objective - Exam Narrative Exam: Constitutional: Alert, cooperative. No acute distress Head, Ears, Nose: Normocephalic, atraumatic. External ears, nose normal Eyes: Conjunctivae/corneas clear. No icterus. No ptosis. Neck: Supple, no meningeal signs Oral: no thrush Cardiovascular: S1, S2 normal. Respiratory: Good air entry, clear to auscultation bilaterally GI: Soft, non-tender; bowel sounds normal. No peritoneal signs Musculoskeletal: No pedal edema, no cyanosis. Skin: No rash or abscess Hem/Lymphatic: No palpable cervical or supraclavicular nodes. No lymphangitis Psych: Mood ok. Affect normal Neurological: Awake, alert, oriented. Right hemiparesis - Constitutional Vitals: Vital Signs Temp Pulse Resp BP Pulse Ox 97.9 F 97 H 18 114/76 96 03/18/19 11:21 03/18/19 11:21 03/18/19 11:21 03/18/19 11:21 03/18/19 11:21 Temperature -Last 24 Hours Temperature 97.9 F Temperature 97.7 F Temperature 99.7 F - Labs CBC & Chem 7: 03/18/19 07:49 03/18/19 06:50 Labs: Abnormal lab results 03/14/19 03/18/19 Range/Units 06:28 06:50 BUN 21 H (9-20) mg/dL HIV-1 RNA PCR copies/ml 819673 H Copies/mL HIV-1 RNA (PCR) log 5.12 H Log cps/mL
[2019-03-18] MEDS: ENOXAPARIN 40 MG/0.4 ML INJ SUB-Q SCH (22:07)
[2019-03-19] MEDS: POTASSIUM CHLORIDE ER 20 MEQ TAB PO SCH (08:30)
[2019-03-19] MEDS: SERTRALINE 50 MG TAB PO SCH (08:30)
[2019-03-19] MEDS: DOCUSATE SODIUM 100 MG CAP PO SCH ×2 (08:30→22:30)
[2019-03-19] MEDS: ASPIRIN EC 325 MG TAB PO SCH (08:30)
--- NOTE | 2019-03-19 09:39 | Progress Note ---
Subjective Date of service: 03/19/19 Principal diagnosis: CVA Interval history: 63-year-old male presented with right hemiparesis and slurred speech. MRI showed a subacute ischemic stroke in the left evelyn with chronic white matter changes. Was started on secondary stroke prevention. No significant stenosis seen on carotid duplex. Echocardiogram essentially normal. Patient underwent therapy and was deemed appropriate for acute inpatient rehabilitation. Patient noted to have HIV as well as seizure disorder but is not on medication for either. Patient is participating in therapy and making slow progress. Taking rest breaks as needed. -BM per record, patient states he had a bowel movement yesterday.. Patient denies any prior trauma including bicycle or motor vehicle accidents or altercations. Again denies any prior chest x-rays that could be helpful in determining chronicity of the condition. Reviewed the CT and it does not appear that there is a hernia present. Reviewed fluoroscopic sniff test- not overwhelming positive for paralytic diaphragm. Abdominal exam still benign. Denies pain, palpitations, dyspnea, cough, N/V, or joint pain. Potassium improved. Simethicone added for excessive gas. Still having SI, off 1013 now Discussed in team conference. Slow progress. Poor carryover and safety awareness. Poor balance, cognition. Still voicing SI to some staff. Wants to go home alone - not a safe discharge at this point. Will ask SW/briseida mgnt to look into placement. All records, vitals, labs and medications were reviewed. No other issues per patient, nursing or therapy. Objective - Exam Narrative Exam: MUSCULOSKELETAL SPECIALTY EXAM CONSTITUTIONAL: Well developed, well nourished, appropriately groomed. LEFT hand dominant. RESPIRATORY: Clear to auscultation bilaterally, decreased on left base. no increased work of breathing CARDIOVASCULAR: Tachycardia, regular Rhythm, no swelling, edema or tenderness in BUE or BLE. All extremities warm. GI: + bowel sounds, soft, NTTP, nondistended. NG tube INTEGUMENTARY: Normal, no lesion, rash, masses or bruising noted in extremities. MUSCULOSKELETAL: BUE and BLE normal without defect, crepitus, subluxation, effusion, arthritic changes or TTP. R 0-1/5, with right foot drop L 4+ /5 ROM decreased on right Tone flaccid on right NEURO: CN VII : right facial droop CN XII : Tongue protrudes right Sensation intact in all extremities without extinction. No tremor noted in 4 extremities. Naming and repetition intact. Follows 2 step commands. Aphasia not appreciated Dysarthria not appreciated Dysphagia not present Neglect possibly mild POSTURE and GAIT: Sitting posture good. Balance appears reasonable. Gait deferred until seen with therapy. PSYCH: Alert, disoriented, flat affect. Questionable mild dementia. - Constitutional Vitals: Vital Signs - 12hr 03/18/19 03/19/19 21:58 07:08 Temperature 36.6 C Pulse Rate 82 Respiratory 18 Rate Blood Pressure 118/77 O2 Sat by Pulse 92 95 Oximetry - Allied health notes Allied health notes reviewed: nursing, PT, ST, OT FIMS assessment as documented by PT/OT/ST: Social interaction/Memory/Problem solving Social Interaction FIM Score 3. Moderate Assistance (Interacts appropriately 50-74%.) Memory FIM Score 5. Supervision (Needs cueing <10%, stressful/ unfamiliar situations.) Problem Solving FIM Score 5. Supervision (Needs cueing <10% to solve routine problems.) Transfers Mode of Locomotion: Wheelchair Bed/Chair/Wheelchair Transfers 3. Moderate Assistance (Patient = 50% or more. FIM Score Some lifting.) Locomotion- walk/wheelchair Most Frequent Mode of Wheelchair Locomotion: Ambulation Distance 30 Eating Eating FIM Score 5. Supervision/Set-Up (Needs help w/ containers, cutting meat, etc.) Dressing-Upper body Patient retrieves clothing No items: Upper Body Dressing FIM Score 2. Maximal Assistance (Patient = 25% or more) Dressing-lower body Patient retrieves clothing No items: Lower Body Dressing FIM Score 3. Moderate Assistance (Patient = 50% or more) - Labs CBC & Chem 7: 03/18/19 07:49 03/18/19 06:50 Labs: Laboratory Results - last 72 hr 03/14/19 03/16/19 03/18/19 06:28 11:01 06:50 WBC RBC Hgb Hct MCV MCH MCHC RDW Plt Count Sodium 139 141 Potassium 3.5 L 3.8 Chloride 103.3 104.5 Carbon Dioxide 21 L 22 Anion Gap 18 18 BUN 27 H 21 H Creatinine 1.2 0.9 Estimated GFR > 60 > 60 BUN/Creatinine Ratio 23 23 Glucose 84 90 Calcium 8.8 8.8 HIV-1 RNA PCR copies/ml 579722 H HIV-1 RNA (PCR) log 5.12 H 03/18/19 07:49 WBC 7.6 RBC 4.68 Hgb 13.8 Hct 41.6 MCV 89 MCH 30 MCHC 33 RDW 14.2 Plt Count 155 Sodium Potassium Chloride Carbon Dioxide Anion Gap BUN Creatinine Estimated GFR BUN/Creatinine Ratio Glucose Calcium HIV-1 RNA PCR copies/ml HIV-1 RNA (PCR) log - Imaging and cardiology Abdominal x-ray: report reviewed, image reviewed Assessment and Plan CVA: Continue secondary stroke prevention. 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 Monitor for shoulder hand syndrome. Monitor for worsening neurologic changes. HIV: Not currently on any medications. Patient told previous providers that his last numbers were undetectable for virus and he no longer takes medications. Consult ID. Labs pending. Med recs per ID when ready to start Seizure disorder: Continue seizure precaution patient also not taken any medications for this. Monitor and if there are any signs of recurrent seizure will start antiepileptic and consult neurology. Neurology saw the patient on the acute care side and did not start antiepileptics. Depression with SI: Consult psychiatry, Zoloft started. Off of 1013 Hypokalemia: Replace, monitor. Left hemidiaphragm: Imaging reviewed. Pulm consult. Discussed with surgery, Dr. Spence. NG tube removed. CT abdomen and chest reviewed imaging and report. Fluoroscopic sniff test not real helpful. We'll need to find outside provider for follow-up and surveillance. Due to significant elevation, patient will have increased risk of pulmonary disease as well as cardiac issues. Z73.6 ADL dysfunction: OT will work on improving ability to perform ADLs (including assistive devices) to increase independence and decrease caregiver burden and improve functional transfers and mobility training. R26.2 Difficulty walking: PT will work on gait training and proper use of assistive devices and advance as appropriate to use of stairs and outside ambulation on uneven surfaces. R26.81 Unsteadiness on feet: PT will work on improving static and dynamic sitting and standing balance as well as proper use of assistive devices to decrease risk of falls. R26.89 Abnormality of gait: PT will work to improve safety and efficiency of gait through neuromotor training and gait training along with instruction on proper use of assistive devices. M62.81 Muscle weakness: PT & OT will work on strengthening exercises to improve functional strength including mixture of closed and open kinetic chain exercises. R53.81 Debility: PT & OT will work on improving overall functional status to improve participation with ADLs, mobility and social involvement. R53.83 Fatigue: PT & OT will work on improving endurance through aerobic exercises and therapeutic activity while monitoring patients tolerance for activity and vital signs as needed. DVT ppx: Lovenox Pain: Continue physical modalities in therapy and pain medications as needed to achieve functional pain control. Sleep: Monitor and address as needed. Bowel: Monitor and address as needed. Appetite: Monitor and address as needed. Discharge planning: Pending therapy progress and care plan meeting. Will continue discussion with therapy team, SW, patient and family. Restrictions/ Precautions: Falls WB status: FWB Functional Hx: ADLs: Independent Cognition: Independent Mobility: No AD Barriers to Discharge: Decreased mobility and ability to perform self care, balance deficits, weakness Estimated Length of Stay: 14-21 days Discharge Destination: Not safe to return home, looking for options
[2019-03-19] MEDS: SIMETHICONE 80 MG CHEW TAB PO SCH ×3 (11:50→22:29)
[2019-03-19] MEDS: POLYETHYLENE GLYCOL 3350 17 GM POWDER PO SCH (11:51)
--- NOTE | 2019-03-19 11:55 | Progress Note ---
Assessment and Plan 63 y/o male with abdominal distention and dyspnea secondary to the former 1. In regards to 5mm nodule. to small to work up at this point. Recommendations would be for repeat CT in 8-12 months. Patient can follow up with me in clinic and I will arrange as outpatient. No further pulmonary recommendations at this time. Subjective Date of service: 03/19/19 Principal diagnosis: CVA Interval history: Spoke to physician this am concerning nodule. Pulm status is unchanged. Sniff test not helpful. Objective Vital Signs - 12hr 03/19/19 07:08 Temperature 97.9 F Pulse Rate 82 Respiratory 18 Rate Blood Pressure 118/77 O2 Sat by Pulse 95 Oximetry CBC and BMP: 03/18/19 07:49 03/18/19 06:50 Abnormal lab findings: Abnormal Labs 03/10/19 03/10/19 03/12/19 08:24 08:24 08:56 RBC 5.77 H Hgb 16.9 H Hct 51.7 H [place] % (Auto) 10.8 H [place] # Potassium 2.9 L* D Chloride Carbon Dioxide 21 L BUN 27 H 21 H Glucose 168 H HIV-1 RNA PCR copies/ml HIV-1 RNA (PCR) log 03/12/19 03/13/19 03/14/19 11:03 05:49 06:28 RBC Hgb Hct [place] % (Auto) [place] # Potassium 3.5 L D 3.5 L Chloride 109.8 H Carbon Dioxide 20 L BUN 21 H 21 H 22 H Glucose 115 H HIV-1 RNA PCR copies/ml HIV-1 RNA (PCR) log 03/14/19 03/14/19 03/16/19 06:28 06:28 11:01 RBC 5.16 H Hgb Hct 46.0 H [place] % (Auto) 14.8 H [place] # 0.9 H Potassium 3.5 L Chloride Carbon Dioxide 21 L BUN 27 H Glucose HIV-1 RNA PCR copies/ml [id number] H HIV-1 RNA (PCR) log 5.12 H 03/18/19 06:50 RBC Hgb Hct [place] % (Auto) [place] # Potassium Chloride Carbon Dioxide BUN 21 H Glucose HIV-1 RNA PCR copies/ml HIV-1 RNA (PCR) log
[2019-03-19] MEDS: ENOXAPARIN 40 MG/0.4 ML INJ SUB-Q SCH (22:29)
[2019-03-20] MEDS: SERTRALINE 50 MG TAB PO SCH (08:38)
[2019-03-20] MEDS: DOCUSATE SODIUM 100 MG CAP PO SCH ×2 (08:38→22:28)
[2019-03-20] MEDS: SIMETHICONE 80 MG CHEW TAB PO SCH ×4 (08:38→22:27)
[2019-03-20] MEDS: ASPIRIN EC 325 MG TAB PO SCH (08:38)
[2019-03-20] MEDS: POLYETHYLENE GLYCOL 3350 17 GM POWDER PO SCH (08:38)
--- NOTE | 2019-03-20 08:38 | Progress Note ---
Subjective Date of service: 03/20/19 Principal diagnosis: CVA Interval history: 63-year-old male presented with right hemiparesis and slurred speech. MRI showed a subacute ischemic stroke in the left evelyn with chronic white matter changes. Was started on secondary stroke prevention. No significant stenosis seen on carotid duplex. Echocardiogram essentially normal. Patient underwent therapy and was deemed appropriate for acute inpatient rehabilitation. Patient noted to have HIV as well as seizure disorder but is not on medication for either. Patient is participating in therapy and making slow progress. Taking rest breaks as needed. +BM. Denies pain, palpitations, dyspnea, cough, N/V, or joint pain. Still having SI, off 1013 now. Wants to go home. Apparently the niece was here on Saturday and the patients sister is wanting to spend some t zana with him after discharge. Would be helpful to coordinate so she can be part of family training. Very flat today. All records, vitals, labs and medications were reviewed. No other issues per patient, nursing or therapy. Objective - Exam Narrative Exam: MUSCULOSKELETAL SPECIALTY EXAM CONSTITUTIONAL: Well developed, well nourished, appropriately groomed. LEFT hand dominant. RESPIRATORY: Clear to auscultation bilaterally, decreased on left base. no increased work of breathing CARDIOVASCULAR: Tachycardia, regular Rhythm, no swelling, edema or tenderness in BUE or BLE. All extremities warm. GI: + bowel sounds, soft, NTTP, nondistended. NG tube INTEGUMENTARY: Normal, no lesion, rash, masses or bruising noted in extremities. MUSCULOSKELETAL: BUE and BLE normal without defect, crepitus, subluxation, effusion, arthritic changes or TTP. R 0-1/5, with right foot drop L 4+ /5 ROM decreased on right Tone flaccid on right NEURO: CN VII : right facial droop CN XII : Tongue protrudes right Sensation intact in all extremities without extinction. No tremor noted in 4 extremities. Naming and repetition intact. Follows 2 step commands. Aphasia not appreciated Dysarthria not appreciated Dysphagia not present Neglect possibly mild POSTURE and GAIT: Sitting posture good. Balance appears reasonable. Gait deferred until seen with therapy. PSYCH: Alert, disoriented, flat affect. Questionable mild dementia. - Constitutional Vitals: Vital Signs - 12hr 03/20/19 08:00 Temperature 36.9 C Pulse Rate 88 Respiratory 18 Rate Blood Pressure 112/81 O2 Sat by Pulse 92 Oximetry - Allied health notes Allied health notes reviewed: nursing, PT, ST, OT FIMS assessment as documented by PT/OT/ST: Social interaction/Memory/Problem solving Social Interaction FIM Score 6. Mod. [place] (Mostly appropriate. May need meds. No supv.) Memory FIM Score 3. Moderate Assistance (Recognizes and remembers 50-74%.) Problem Solving FIM Score 3. Moderate Assistance (Solves routine problems 50-74%.) Transfers Mode of Locomotion: Wheelchair Bed/Chair/Wheelchair Transfers 3. Moderate Assistance (Patient = 50% or more. FIM Score Some lifting.) Locomotion- walk/wheelchair Most Frequent Mode of Wheelchair Locomotion: Ambulation Distance 30 Eating Eating FIM Score 5. Supervision/Set-Up (Needs help w/ containers, cutting meat, etc.) Dressing-Upper body Patient retrieves clothing No items: Upper Body Dressing FIM Score 2. Maximal Assistance (Patient = 25% or more) Dressing-lower body Patient retrieves clothing No items: Lower Body Dressing FIM Score 3. Moderate Assistance (Patient = 50% or more) - Labs CBC & Chem 7: 03/18/19 07:49 03/18/19 06:50 Labs: Laboratory Results - last 72 hr 03/14/19 03/18/19 03/18/19 06:28 06:50 07:49 WBC 7.6 RBC 4.68 Hgb 13.8 Hct 41.6 MCV 89 MCH 30 MCHC 33 RDW 14.2 Plt Count 155 Sodium 141 Potassium 3.8 Chloride 104.5 Carbon Dioxide 22 Anion Gap 18 BUN 21 H Creatinine 0.9 Estimated GFR > 60 BUN/Creatinine Ratio 23 Glucose 90 Calcium 8.8 HIV-1 RNA PCR copies/ml 966327 H HIV-1 RNA (PCR) log 5.12 H Assessment and Plan CVA: Continue secondary stroke prevention. 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 Monitor for shoulder hand syndrome. Monitor for worsening neurologic changes. HIV: Not currently on any medications. Patient told previous providers that his last numbers were undetectable for virus and he no longer takes medications. Consult ID. Labs pending. Med recs per ID when ready to start Seizure disorder: Continue seizure precaution patient also not taken any medications for this. Monitor and if there are any signs of recurrent seizure will start antiepileptic and consult neurology. Neurology saw the patient on the acute care side and did not start antiepileptics. Depression with SI: Consult psychiatry, Zoloft started. Off of 1013 Hypokalemia: Replace, monitor. Left hemidiaphragm: Imaging reviewed. Pulm consult. Discussed with surgery, Dr. Spence. NG tube removed. CT abdomen and chest reviewed imaging and report. Fluoroscopic sniff test not real helpful. We'll need to find outside provider for follow-up and surveillance. Due to significant elevation, patient will have increased risk of pulmonary disease as well as cardiac issues. Pulmonary nodule: follow up with pulmonology for repeat CT Z73.6 ADL dysfunction: OT will work on improving ability to perform ADLs (including assistive devices) to increase independence and decrease caregiver burden and improve functional transfers and mobility training. R26.2 Difficulty walking: PT will work on gait training and proper use of assistive devices and advance as appropriate to use of stairs and outside ambulation on uneven surfaces. R26.81 Unsteadiness on feet: PT will work on improving static and dynamic sitting and standing balance as well as proper use of assistive devices to decrease risk of falls. R26.89 Abnormality of gait: PT will work to improve safety and efficiency of gait through neuromotor training and gait training along with instruction on proper use of assistive devices. M62.81 Muscle weakness: PT & OT will work on strengthening exercises to improve functional strength including mixture of closed and open kinetic chain exercises. R53.81 Debility: PT & OT will work on improving overall functional status to improve participation with ADLs, mobility and social involvement. R53.83 Fatigue: PT & OT will work on improving endurance through aerobic exercises and therapeutic activity while monitoring patients tolerance for activity and vital signs as needed. DVT ppx: Lovenox Pain: Continue physical modalities in therapy and pain medications as needed to achieve functional pain control. Sleep: Monitor and address as needed. Bowel: Monitor and address as needed. Appetite: Monitor and address as needed. Discharge planning: Pending therapy progress and care plan meeting. Will continue discussion with therapy team, SW, patient and family. Restrictions/ Precautions: Falls WB status: FWB Functional Hx: ADLs: Independent Cognition: Independent Mobility: No AD Barriers to Discharge: Decreased mobility and ability to perform self care, balance deficits, weakness Estimated Length of Stay: 14-21 days Discharge Destination: Not safe to return home, looking for options
[2019-03-20 11:55] LABS: BUN/Creatinine Ratio 17; Blood Urea Nitrogen 17 mg/dL (9-20); Calcium 9.4 mg/dL (8.4-10.2); Hemolysis Index 8
[2019-03-20] MEDS: ENOXAPARIN 40 MG/0.4 ML INJ SUB-Q SCH (22:28)
[2019-03-21] MEDS: SERTRALINE 50 MG TAB PO SCH (09:07)
[2019-03-21] MEDS: DOCUSATE SODIUM 100 MG CAP PO SCH ×2 (09:08→21:19)
[2019-03-21] MEDS: POLYETHYLENE GLYCOL 3350 17 GM POWDER PO SCH (09:08)
[2019-03-21] MEDS: SIMETHICONE 80 MG CHEW TAB PO SCH ×3 (09:08→21:19)
[2019-03-21] MEDS: ASPIRIN EC 325 MG TAB PO SCH (09:08)
[2019-03-21] MEDS: ENOXAPARIN 40 MG/0.4 ML INJ SUB-Q SCH (21:19)
[2019-03-22] MEDS: DOCUSATE SODIUM 100 MG CAP PO SCH ×2 (09:16→21:07)
[2019-03-22] MEDS: SIMETHICONE 80 MG CHEW TAB PO SCH ×3 (09:16→21:07)
[2019-03-22] MEDS: SERTRALINE 50 MG TAB PO SCH (09:16)
[2019-03-22] MEDS: ASPIRIN EC 325 MG TAB PO SCH (09:16)
[2019-03-22] MEDS: ENOXAPARIN 40 MG/0.4 ML INJ SUB-Q SCH (21:07)
--- NOTE | 2019-03-23 09:31 | Progress Note ---
Subjective Date of service: 03/23/19 Principal diagnosis: CVA Interval history: 63-year-old male presented with right hemiparesis and slurred speech. MRI showed a subacute ischemic stroke in the left evelyn with chronic white matter changes. Was started on secondary stroke prevention. No significant stenosis seen on carotid duplex. Echocardiogram essentially normal. Patient underwent therapy and was deemed appropriate for acute inpatient rehabilitation. Patient noted to have HIV as well as seizure disorder but is not on medication for either. Patient is participating in therapy and making slow progress. Taking rest breaks as needed. +BM. Denies pain, palpitations, dyspnea, cough, N/V, or joint pain. Very flat today. Notified ID that labs came in over the weekend and were posterior to the computer this morning as an uploaded document. They will see him today. Discussed with patient that they will likely want to start him on medications soon. Patient observed brushing his teeth does have an improved improvement in his pincher grasp on his hemiparetic side. All records, vitals, labs and medications were reviewed. No other issues per patient, nursing or therapy. Objective - Exam Narrative Exam: MUSCULOSKELETAL SPECIALTY EXAM CONSTITUTIONAL: Well developed, well nourished, appropriately groomed. LEFT hand dominant. RESPIRATORY: Clear to auscultation bilaterally, decreased on left base. no increased work of breathing CARDIOVASCULAR: Regular rate, regular Rhythm, no swelling, edema or tenderness in BUE or BLE. All extremities warm. GI: + bowel sounds, soft, NTTP, nondistended. INTEGUMENTARY: Normal, no lesion, rash, masses or bruising noted in extremities. MUSCULOSKELETAL: BUE and BLE normal without defect, crepitus, subluxation, effusion, arthritic changes or TTP. R 0-1/5, with right foot drop L 4+ /5 ROM decreased on right Tone flaccid on right NEURO: CN VII : right facial droop CN XII : Tongue protrudes right Sensation intact in all extremities without extinction. No tremor noted in 4 extremities. Naming and repetition intact. Follows 2 step commands. Aphasia not appreciated Dysarthria not appreciated Dysphagia not present Neglect possibly mild POSTURE and GAIT: Sitting posture good. Balance appears reasonable. Gait deferred until seen with therapy. PSYCH: Alert, disoriented, flat affect. Questionable mild dementia. - Constitutional Vitals: Vital Signs - 12hr 03/23/19 03/23/19 03/23/19 00:00 04:12 04:13 Temperature 36.6 C Pulse Rate 78 76 82 Respiratory 16 16 Rate Blood Pressure 104/77 105/61 O2 Sat by Pulse 96 96 97 Oximetry 03/23/19 03/23/19 04:15 07:17 Temperature 36.7 C 36.3 C L Pulse Rate 71 Respiratory 18 Rate Blood Pressure 114/71 O2 Sat by Pulse 96 Oximetry - Allied health notes Allied health notes reviewed: nursing, PT, ST, OT FIMS assessment as documented by PT/OT/ST: Social interaction/Memory/Problem solving Social Interaction FIM Score 6. Mod. [place] (Mostly appropriate. May need meds. No supv.) Memory FIM Score 3. Moderate Assistance (Recognizes and remembers 50-74%.) Problem Solving FIM Score 3. Moderate Assistance (Solves routine problems 50-74%.) Transfers Mode of Locomotion: Wheelchair Bed/Chair/Wheelchair Transfers 4. Minimal Assistance (Patient = 75% or more. FIM Score Needs touching.) Toilet Transfers FIM Score 4. Minimal Assistance (Patient = 75% or more. Needs touching.) Locomotion- walk/wheelchair Most Frequent Mode of Wheelchair Locomotion: Ambulation Distance 30 Eating Eating FIM Score 5. Supervision/Set-Up (Needs help w/ containers, cutting meat, etc.) Dressing-Upper body Patient retrieves clothing No items: Patient applies/removes UE No prosthesis or orthosis: Upper Body Dressing FIM Score 5. Supv./Set-Up ([place] sets out clothes or applies pros./orth.) Dressing-lower body Patient retrieves clothing No items: Patient applies/removes LE No prosthesis or orthosis: Lower Body Dressing FIM Score 3. Moderate Assistance (Patient = 50% or more) - Labs CBC & Chem 7: 03/18/19 07:49 03/20/19 11:07 Labs: Laboratory Results - last 72 hr 03/14/19 03/20/19 06:18 11:07 Sodium 140 Potassium 4.0 Chloride 102.9 Carbon Dioxide 21 L Anion Gap 20 BUN 17 Creatinine 1.0 Estimated GFR > 60 BUN/Creatinine Ratio 17 Glucose 96 Calcium 9.4 HIV-1 Genotyping Detected H Assessment and Plan CVA: Continue secondary stroke prevention. 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 Monitor for shoulder hand syndrome. Monitor for worsening neurologic changes. HIV: Not currently on any medications. Patient told previous providers that his last numbers were undetectable for virus and he no longer takes medications. Consult ID. Labs pending. Med recs per ID when ready to start Seizure disorder: Continue seizure precaution patient also not taken any medications for this. Monitor and if there are any signs of recurrent seizure will start antiepileptic and consult neurology. Neurology saw the patient on the acute care side and did not start antiepileptics. Depression with SI: Consult psychiatry, Zoloft started. Off of 1013 Hypokalemia: Replace, monitor. Left hemidiaphragm: Imaging reviewed. Pulm consult. Discussed with surgery, Dr. Spence. NG tube removed. CT abdomen and chest reviewed imaging and report. Fluoroscopic sniff test not real helpful. We'll need to find outside provider for follow-up and surveillance. Due to significant elevation, patient will have increased risk of pulmonary disease as well as cardiac issues. Pulmonary nodule: follow up with pulmonology for repeat CT Z73.6 ADL dysfunction: OT will work on improving ability to perform ADLs (including assistive devices) to increase independence and decrease caregiver burden and improve functional transfers and mobility training. R26.2 Difficulty walking: PT will work on gait training and proper use of assistive devices and advance as appropriate to use of stairs and outside ambulation on uneven surfaces. R26.81 Unsteadiness on feet: PT will work on improving static and dynamic sitting and standing balance as well as proper use of assistive devices to decrease risk of falls. R26.89 Abnormality of gait: PT will work to improve safety and efficiency of gait through neuromotor training and gait training along with instruction on proper use of assistive devices. M62.81 Muscle weakness: PT & OT will work on strengthening exercises to improve functional strength including mixture of closed and open kinetic chain exercis es. R53.81 Debility: PT & OT will work on improving overall functional status to improve participation with ADLs, mobility and social involvement. R53.83 Fatigue: PT & OT will work on improving endurance through aerobic exercises and therapeutic activity while monitoring patients tolerance for acti vity and vital signs as needed. DVT ppx: Lovenox Pain: Continue physical modalities in therapy and pain medications as needed to achieve functional pain control. Sleep: Monitor and address as needed. Bowel: Monitor and address as needed. Appetite: Monitor and address as needed. Discharge planning: Pending therapy progress and care plan meeting. Will continue discussion with therapy team, SW, patient and family. Restrictions/ Precautions: Falls WB status: FWB Functional Hx: ADLs: Independent Cognition: Independent Mobility: No AD Barriers to Discharge: Decreased mobility and ability to perform self care, balance deficits, weakness Estimated Length of Stay: 14-21 days Discharge Destination: Not safe to return home alone, looking for options. Sister may stay with him at home.
[2019-03-23] MEDS: SERTRALINE 50 MG TAB PO SCH (09:32)
[2019-03-23] MEDS: DOCUSATE SODIUM 100 MG CAP PO SCH ×2 (09:33→22:37)
[2019-03-23] MEDS: ASPIRIN EC 325 MG TAB PO SCH (09:33)
[2019-03-23] MEDS: SIMETHICONE 80 MG CHEW TAB PO SCH ×4 (09:35→22:36)
[2019-03-23] MEDS: POLYETHYLENE GLYCOL 3350 17 GM POWDER PO SCH (09:36)
--- NOTE | 2019-03-23 11:09 | Progress Note ---
Assessment and Plan Cultures: None A/P: 53-year-old male with HIV, not on medications, seizure disorder, recent CVA. #HIV: he was diagnosed in 1985, used to see Dr. Levine, not on meds for 2 years. Would like to start treatment. BW=[id number] on 03/14/2019 #Acute CVA: At inpatient rehabilitation #Seizure disorder: On medications #Major depression: psych following. On 1013. Recs: CD4 count 46 with 3% - will start Bactrim. Will probably be a good candidate for Biktarvy to avoid any drug drug interactions with his psych meds Genotype likely to show wild type virus since off medications for a few years. Will likely need to start medications and follow up with repeat genotype if he does not respond appropriately. Due to lack of inpatient combination pills - will start dolutegravir, tenofovir DF, and emtricitabine. Will change to Biktarvy as outpatient. - he is amenable to this plan will follow [facility] M: [phone] O: [phone] F: [phone] Subjective Date of service: 03/23/19 Principal diagnosis: CVA Interval history: Ongoing rehab, Slow progress. Objective - Exam Narrative Exam: Constitutional: Alert, cooperative. No acute distress Head, Ears, Nose: Normocephalic, atraumatic. External ears, nose normal Eyes: Conjunctivae/corneas clear. No icterus. No ptosis. Neck: Supple, no meningeal signs Oral: no thrush Cardiovascular: S1, S2 normal. Respiratory: Good air entry, clear to auscultation bilaterally GI: Soft, non-tender; bowel sounds normal. No peritoneal signs Musculoskeletal: No pedal edema, no cyanosis. Skin: No rash or abscess Hem/Lymphatic: No palpable cervical or supraclavicular nodes. No lymphangitis Psych: Mood ok. Affect normal Neurological: Awake, alert, oriented. Right hemiparesis - Constitutional Vitals: Vital Signs Temp Pulse Resp BP Pulse Ox 97.4 F L 71 18 114/71 96 03/23/19 07:17 03/23/19 07:17 03/23/19 07:17 03/23/19 07:17 03/23/19 07:17 Temperature -Last 24 Hours Temperature 97.4 F Temperature 98.1 F Temperature 97.8 F Temperature 98.5 F - Labs CBC & Chem 7: 03/18/19 07:49 03/20/19 11:07
[2019-03-23 13:34] LABS: CD19, Absolute SEE SCANNED RESULT; CD3, Absolute SEE SCANNED RESULT; CD3, Percentage SEE SCANNED RESULT; CD4, Absolute SEE SCANNED RESULT; CD4, Percentage SEE SCANNED RESULT; CD4/CD8 Ratio SEE SCANNED RESULT; CD8, Absolute SEE SCANNED RESULT; CD8, Percentage SEE SCANNED RESULT; Lymphocytes, Absolute SEE SCANNED RESULT
[2019-03-23] MEDS: TENOFOVIR 300 MG TAB PO SCH (17:53)
[2019-03-23] MEDS: EMTRICITABINE 200 MG CAP PO SCH (17:53)
[2019-03-23] MEDS: SULFAMETHOXAZOLE/TRIMETHOPRIM 800/160MG DS TAB PO SCH (17:54)
[2019-03-23] MEDS: DOLUTEGRAVIR 50 MG TAB PO SCH (17:54)
[2019-03-23] MEDS: ENOXAPARIN 40 MG/0.4 ML INJ SUB-Q SCH (22:37)
[2019-03-24] MEDS: ASPIRIN EC 325 MG TAB PO SCH (07:36)
[2019-03-24] MEDS: SERTRALINE 50 MG TAB PO SCH (07:36)
[2019-03-24] MEDS: POLYETHYLENE GLYCOL 3350 17 GM POWDER PO SCH (07:36)
[2019-03-24] MEDS: TENOFOVIR 300 MG TAB PO SCH (07:36)
[2019-03-24] MEDS: SIMETHICONE 80 MG CHEW TAB PO SCH (07:36)
[2019-03-24] MEDS: EMTRICITABINE 200 MG CAP PO SCH (07:36)
[2019-03-24] MEDS: DOCUSATE SODIUM 100 MG CAP PO SCH ×2 (07:36→21:11)
[2019-03-24] MEDS: DOLUTEGRAVIR 50 MG TAB PO SCH (07:36)
--- NOTE | 2019-03-24 09:52 | Progress Note ---
Subjective Date of service: 03/24/19 Principal diagnosis: CVA Interval history: 63-year-old male presented with right hemiparesis and slurred speech. MRI showed a subacute ischemic stroke in the left evelyn with chronic white matter changes. Was started on secondary stroke prevention. No significant stenosis seen on carotid duplex. Echocardiogram essentially normal. Patient underwent therapy and was deemed appropriate for acute inpatient rehabilitation. Patient noted to have HIV as well as seizure disorder but is not on medication for either. Patient is participating in therapy and making slow progress. Taking rest breaks as needed. +BM. Denies pain, palpitations, dyspnea, cough, N/V, or joint pain. Flat today. Started on medications per ID. Heart rate is improved. Discussed in team conference. Patient making slow progress. Doing fairly well with physical therapy. Still hemiparetic with out much return. Able to maintain balance. Having some issues with occupational therapy but developing good and story strategies. Seems to be having reduced participation with speech therapy. We'll continue to advance patient as much as possible to improve [place] as he lives alone. Will have family assistance starting first week of March and we'll look to discharge then. All records, vitals, labs and medications were reviewed. No other issues per patient, nursing or therapy. Objective - Exam Narrative Exam: MUSCULOSKELETAL SPECIALTY EXAM CONSTITUTIONAL: Well developed, well nourished, appropriately groomed. LEFT hand dominant. RESPIRATORY: Clear to auscultation bilaterally, decreased on left base. no increased work of breathing CARDIOVASCULAR: Regular rate, regular Rhythm, no swelling, edema or tenderness in BUE or BLE. All extremities warm. GI: + bowel sounds, soft, NTTP, nondistended. INTEGUMENTARY: Normal, no lesion, rash, masses or bruising noted in extremities. MUSCULOSKELETAL: BUE and BLE normal without defect, crepitus, subluxation, effusion, arthritic changes or TTP. R 0-1/5, with right foot drop L 4+ /5 ROM decreased on right Tone flaccid on right NEURO: CN VII : right facial droop CN XII : Tongue protrudes right Sensation intact in all extremities without extinction. No tremor noted in 4 extremities. Naming and repetition intact. Follows 2 step commands. Aphasia not appreciated Dysarthria not appreciated Dysphagia not present Neglect possibly mild POSTURE and GAIT: Sitting posture good. Balance appears reasonable. Gait deferred until seen with therapy. PSYCH: Alert, disoriented, flat affect. Questionable mild dementia. - Constitutional Vitals: Vital Signs - 12hr 03/24/19 03/24/19 03/24/19 00:05 00:08 04:13 Temperature 36.6 C Pulse Rate 79 77 Respiratory 18 Rate Blood Pressure Blood Pressure 109/73 [Left] O2 Sat by Pulse 96 95 Oximetry 03/24/19 03/24/19 05:24 07:04 Temperature 36.4 C 36.2 C L Pulse Rate 80 85 Respiratory 18 20 Rate Blood Pressure 115/71 Blood Pressure 96/69 [Left] O2 Sat by Pulse 95 96 Oximetry - Allied health notes Allied health notes reviewed: nursing, PT, ST, OT FIMS assessment as documented by PT/OT/ST: Social interaction/Memory/Problem solving Social Interaction FIM Score 6. Mod. [place] (Mostly appropriate. May need meds. No supv.) Memory FIM Score 4. Minimal Assistance (Recognizes and remembers 75-90%.) Problem Solving FIM Score 4. Minimal Assistance (Solves routine problems 75-90%.) Transfers Mode of Locomotion: Wheelchair Bed/Chair/Wheelchair Transfers 4. Minimal Assistance (Patient = 75% or more. FIM Score Needs touching.) Toilet Transfers FIM Score 4. Minimal Assistance (Patient = 75% or more. Needs touching.) Locomotion- walk/wheelchair Most Frequent Mode of Wheelchair Locomotion: Ambulation Distance 30 Eating Eating FIM Score 5. Supervision/Set-Up (Needs help w/ containers, cutting meat, etc.) Dressing-Upper body Patient retrieves clothing No items: Patient applies/removes UE No prosthesis or orthosis: Upper Body Dressing FIM Score 5. Supv./Set-Up ([place] sets out clothes or applies pros./orth.) Dressing-lower body Patient retrieves clothing No items: Patient applies/removes LE No prosthesis or orthosis: Lower Body Dressing FIM Score 3. Moderate Assistance (Patient = 50% or more) - Labs CBC & Chem 7: 03/18/19 07:49 03/20/19 11:07 Labs: Laboratory Results - last 72 hr 03/14/19 06:28 Abs Lymphs (Manual) See scanned result Lymph Enumerat CD4/CD8 See scanned result % CD3 Cells See scanned result Absolute CD3 Count See scanned result % CD4 Cells See scanned result Absolute CD4 Count See scanned result % CD8 Cells See scanned result Absolute CD8 Count See scanned result % CD19 Cells See scanned result Absolute CD19 Count See scanned result Assessment and Plan CVA: Continue secondary stroke prevention. 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 Monitor for shoulder hand syndrome. Monitor for worsening neurologic changes. HIV: Not currently on any medications. Patient told previous providers that his last numbers were undetectable for virus and he no longer takes medications. Consult ID. Labs reviewed. Anti-retroviral and prophylactic antibiotics by ID. Seizure disorder: Continue seizure precaution patient also not taken any medications for this. Monitor and if there are any signs of recurrent seizure will start antiepileptic and consult neurology. Neurology saw the patient on the acute care side and did not start antiepileptics. Depression with SI: Consult psychiatry, Zoloft started. Off of 1013 Hypokalemia: Replace, monitor. Left hemidiaphragm: Imaging reviewed. Pulm consult. Discussed with surgery, Dr. Spence. NG tube removed. CT abdomen and chest reviewed imaging and report. Fluoroscopic sniff test not real helpful. We'll need to find outside provider for follow-up and surveillance. Due to significant elevation, patient will have increased risk of pulmonary disease as well as cardiac issues. Pulmonary nodule: follow up with pulmonology for repeat CT Z73.6 ADL dysfunction: OT will work on improving ability to perform ADLs (including assistive devices) to increase independence and decrease caregiver burden and improve functional transfers and mobility training. R26.2 Difficulty walking: PT will work on gait training and proper use of assistive devices and advance as appropriate to use of stairs and outside ambulation on uneven surfaces. R26.81 Unsteadiness on feet: PT will work on improving static and dynamic sitting and standing balance as well as proper use of assistive devices to decrease risk of falls. R26.89 Abnormality of gait: PT will work to improve safety and efficiency of gait through neuromotor training and gait training along with instruction on proper use of assistive devices. M62.81 Muscle weakness: PT & OT will work on strengthening exercises to improve functional strength including mixture of closed and open kinetic chain exercises. R53.81 Debility: PT & OT will work on improving overall functional status to improve participation with ADLs, mobility and social involvement. R53.83 Fatigue: PT & OT will work on improving endurance through aerobic exercises and therapeutic activity while monitoring patients tolerance for activity and vital signs as needed. DVT ppx: Lovenox Pain: Continue physical modalities in therapy and pain medications as needed to achieve functional pain control. Sleep: Monitor and address as needed. Bowel: Monitor and address as needed. Appetite: Monitor and address as needed. Discharge planning: Pending therapy progress and care plan meeting. Will continue discussion with therapy team, SW, patient and family. Restrictions/ Precautions: Falls WB status: FWB Functional Hx: ADLs: Independent Cognition: Independent Mobility: No AD Barriers to Discharge: Decreased mobility and ability to perform self care, balance deficits, weakness Estimated Length of Stay: 14-21 days Discharge Destination: Not safe to return home alone, looking for options. Sister may stay with him at home.
--- NOTE | 2019-03-24 11:46 | Progress Note ---
Assessment and Plan Cultures: None A/P: 53-year-old male with HIV, not on medications, seizure disorder, recent CVA. #HIV: he was diagnosed in 1985, used to see Dr. Levine, not on meds for 2 years. Would like to start treatment. GO=115,000 on 03/14/2019 #Acute CVA: At inpatient rehabilitation #Seizure disorder: On medications #Major depression: psych following. On 1013. Recs: CD4 count 46 with 3% - will start Bactrim. Will probably be a good candidate for Biktarvy to avoid any drug drug interactions with his psych meds Genotype likely to show wild type virus since off medications for a few years. Will likely need to start medications and follow up with repeat genotype if he does not respond appropriately. Due to lack of inpatient combination pills - will start dolutegravir, tenofovir DF, and emtricitabine. Will change to Biktarvy as outpatient. - he is amenable to this plan will follow [facility] M: [phone] O: [phone] F: [phone] Subjective Date of service: 03/24/19 Principal diagnosis: CVA Interval history: Ongoing rehab, Slow progress. Started ART yesterday, dislikes multi-pill regimen. Objective - Exam Narrative Exam: Constitutional: Alert, cooperative. No acute distress Head, Ears, Nose: Normocephalic, atraumatic. External ears, nose normal Eyes: Conjunctivae/corneas clear. No icterus. No ptosis. Neck: Supple, no meningeal signs Oral: no thrush Cardiovascular: S1, S2 normal. Respiratory: Good air entry, clear to auscultation bilaterally GI: Soft, non-tender; bowel sounds normal. No peritoneal signs Musculoskeletal: No pedal edema, no cyanosis. Skin: No rash or abscess Hem/Lymphatic: No palpable cervical or supraclavicular nodes. No lymphangitis Psych: Mood ok. Affect normal Neurological: Awake, alert, oriented. Right hemiparesis - Constitutional Vitals: Vital Signs Temp Pulse Resp BP Pulse Ox 97.1 F L 85 20 115/71 96 03/24/19 07:04 03/24/19 07:04 03/24/19 07:04 03/24/19 07:04 03/24/19 07:04 Temperature -Last 24 Hours Temperature 97.1 F Temperature 97.6 F Temperature 97.8 F Temperature 97.4 F Temperature 98.8 F - Labs CBC & Chem 7: 03/18/19 07:49 03/20/19 11:07
[2019-03-24] MEDS: SULFAMETHOXAZOLE/TRIMETHOPRIM 800/160MG DS TAB PO SCH (16:09)
[2019-03-24] MEDS: ENOXAPARIN 40 MG/0.4 ML INJ SUB-Q SCH (21:10)
[2019-03-25] MEDS: DOCUSATE SODIUM 100 MG CAP PO SCH ×2 (07:18→22:09)
[2019-03-25] MEDS: POLYETHYLENE GLYCOL 3350 17 GM POWDER PO SCH (07:18)
[2019-03-25] MEDS: TENOFOVIR 300 MG TAB PO SCH (07:18)
[2019-03-25] MEDS: ASPIRIN EC 325 MG TAB PO SCH (07:18)
[2019-03-25] MEDS: EMTRICITABINE 200 MG CAP PO SCH (07:18)
[2019-03-25] MEDS: DOLUTEGRAVIR 50 MG TAB PO SCH (07:18)
[2019-03-25] MEDS: SERTRALINE 50 MG TAB PO SCH (07:19)
--- NOTE | 2019-03-25 08:52 | Progress Note ---
Subjective Date of service: 03/25/19 Principal diagnosis: CVA Interval history: 63-year-old male presented with right hemiparesis and slurred speech. MRI showed a subacute ischemic stroke in the left evelyn with chronic white matter changes. Was started on secondary stroke prevention. No significant stenosis seen on carotid duplex. Echocardiogram essentially normal. Patient underwent therapy and was deemed appropriate for acute inpatient rehabilitation. Patient noted to have HIV as well as seizure disorder but is not on medication for either. Patient is participating in therapy and making slow progress. Taking rest breaks as needed. -BM. Denies pain, palpitations, dyspnea, cough, N/V, or joint pain. Flat today. Observed with OPERATIONS CLERK, nonspecific with answers. Will work with higher level sequencing in next few days. Having difficulty with carryover. Did better with distance walked today but still has issues with challenging tasks and dynamic balance. Heart rate is improved. All records, vitals, labs and medications were reviewed. No other issues per patient, nursing or therapy. Objective - Exam Narrative Exam: MUSCULOSKELETAL SPECIALTY EXAM CONSTITUTIONAL: Well developed, well nourished, appropriately groomed. LEFT hand dominant. RESPIRATORY: Clear to auscultation bilaterally, decreased on left base. no increased work of breathing CARDIOVASCULAR: Regular rate, regular Rhythm, no swelling, edema or tenderness in BUE or BLE. All extremities warm. GI: + bowel sounds, soft, NTTP, nondistended. INTEGUMENTARY: Normal, no lesion, rash, masses or bruising noted in extremities. MUSCULOSKELETAL: BUE and BLE normal without defect, crepitus, subluxation, effusion, arthritic changes or TTP. R 2/5, with right foot drop L 4+ /5 ROM decreased on right Tone flaccid on right NEURO: CN VII : right facial droop CN XII : Tongue protrudes right Sensation intact in all extremities without extinction. No tremor noted in 4 extremities. Naming and repetition intact. Follows 2 step commands. Aphasia not appreciated Dysarthria not appreciated Dysphagia not present Neglect possibly mild POSTURE and GAIT: Sitting posture good. Balance appears reasonable. Gait reasonable with RW, some LOB, distance improving but not safe during ambulation. PSYCH: Alert, disoriented, flat affect. Questionable mild dementia. - Constitutional Vitals: Vital Signs - 12hr 03/25/19 08:10 Temperature 36.6 C Pulse Rate 73 Respiratory 18 Rate Blood Pressure 116/73 O2 Sat by Pulse 94 Oximetry - Allied health notes Allied health notes reviewed: nursing, PT, ST, OT FIMS assessment as documented by PT/OT/ST: Social interaction/Memory/Problem solving Social Interaction FIM Score 5. Supervision (Needs supv. <10%. Needs encouragement to participate.) Memory FIM Score 4. Minimal Assistance (Recognizes and remembers 75-90%.) Problem Solving FIM Score 3. Moderate Assistance (Solves routine problems 50-74%.) Transfers Mode of Locomotion: Wheelchair Bed/Chair/Wheelchair Transfers 4. Minimal Assistance (Patient = 75% or more. FIM Score Needs touching.) Toilet Transfers FIM Score 4. Minimal Assistance (Patient = 75% or more. Needs touching.) Locomotion- walk/wheelchair Most Frequent Mode of Wheelchair Locomotion: Ambulation Distance 30 Eating Eating FIM Score 5. Supervision/Set-Up (Needs help w/ containers, cutting meat, etc.) Dressing-Upper body Patient retrieves clothing No items: Patient applies/removes UE No prosthesis or orthosis: Upper Body Dressing FIM Score 5. Supv./Set-Up ([place] sets out clothes or applies pros./orth.) Dressing-lower body Patient retrieves clothing No items: Patient applies/removes LE No prosthesis or orthosis: Lower Body Dressing FIM Score 3. Moderate Assistance (Patient = 50% or more) - Labs CBC & Chem 7: 03/18/19 07:49 03/20/19 11:07 Labs: Laboratory Results - last 72 hr 03/14/19 06:28 Abs Lymphs (Manual) See scanned result Lymph Enumerat CD4/CD8 See scanned result % CD3 Cells See scanned result Absolute CD3 Count See scanned result % CD4 Cells See scanned result Absolute CD4 Count See scanned result % CD8 Cells See scanned result Absolute CD8 Count See scanned result % CD19 Cells See scanned result Absolute CD19 Count See scanned result Assessment and Plan CVA: Continue secondary stroke prevention. 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 Monitor for shoulder hand syndrome. Monitor for worsening neurologic changes. HIV: Not currently on any medications. Patient told previous providers that his last numbers were undetectable for virus and he no longer takes medications. Consult ID. Labs reviewed. Anti-retroviral and prophylactic antibiotics by ID. Seizure disorder: Continue seizure precaution patient also not taken any medications for this. Monitor and if there are any signs of recurrent seizure will start antiepileptic and consult neurology. Neurology saw the patient on the acute care side and did not start antiepileptics. Depression with SI: Consult psychiatry, Zoloft started. Off of 1013 Hypokalemia: Replace, monitor. Left hemidiaphragm: Imaging reviewed. Pulm consult. Discussed with surgery, Dr. Spence. NG tube removed. CT abdomen and chest reviewed imaging and report. Fluoroscopic sniff test not real helpful. We'll need to find outside provider for follow-up and surveillance. Due to significant elevation, patient will have increased risk of pulmonary disease as well as cardiac issues. Pulmonary nodule: follow up with pulmonology for repeat CT Z73.6 ADL dysfunction: OT will work on improving ability to perform ADLs (including assistive devices) to increase independence and decrease caregiver burden and improve functional transfers and mobility training. R26.2 Difficulty walking: PT will work on gait training and proper use of assistive devices and advance as appropriate to use of stairs and outside ambulation on uneven surfaces. R26.81 Unsteadiness on feet: PT will work on improving static and dynamic sitting and standing balance as well as proper use of assistive devices to decrease risk of falls. R26.89 Abnormality of gait: PT will work to improve safety and efficiency of gait through neuromotor training and gait training along with instruction on proper use of assistive devices. M62.81 Muscle weakness: PT & OT will work on strengthening exercises to improve functional strength including mixture of closed and open kinetic chain exercises. R53.81 Debility: PT & OT will work on improving overall functional status to improve participation with ADLs, mobility and social involvement. R53.83 Fatigue: PT & OT will work on improving endurance through aerobic exercises and therapeutic activity while monitoring patients tolerance for activity and vital signs as needed. DVT ppx: Lovenox Pain: Continue physical modalities in therapy and pain medications as needed to achieve functional pain control. Sleep: Monitor and address as needed. Bowel: Monitor and address as needed. Appetite: Monitor and address as needed. Discharge planning: Pending therapy progress and care plan meeting. Will continue discussion with therapy team, SW, patient and family. Restrictions/ Precautions: Falls WB status: FWB Functional Hx: ADLs: Independent Cognition: Independent Mobility: No AD Barriers to Discharge: Decreased mobility and ability to perform self care, balance deficits, weakness Estimated Length of Stay: 14-21 days Discharge Destination: Not safe to return home alone, looking for options. Sister may stay with him at home.
--- NOTE | 2019-03-25 12:44 | Progress Note ---
Assessment and Plan Cultures: None A/P: 53-year-old male with HIV, not on medications, seizure disorder, recent CVA. #HIV: he was diagnosed in 1985, used to see Dr. Levine, not on meds for 2 years. Would like to start treatment. LI=[id number] on 03/14/2019 #Acute CVA: At inpatient rehabilitation #Seizure disorder: On medications #Major depression: psych following. On 1013. Recs: CD4 count 46 with 3% - will start Bactrim. Will probably be a good candidate for Biktarvy to avoid any drug drug interactions with his psych meds Genotype likely to show wild type virus since off medications for a few years. Will likely need to start medications and follow up with repeat genotype if he does not respond appropriately. Due to lack of inpatient combination pills - will start dolutegravir, tenofovir DF, and emtricitabine. Will change to Biktarvy as outpatient. - he is amenable to this plan. Please discharge with 2 weeks of medications. I will see him in the clinic as soon as possible after discharge. will follow [facility] M: [phone] O: [phone] F: [phone] Subjective Date of service: 03/25/19 Principal diagnosis: CVA Interval history: Ongoing rehab, Slow progress. Started ART yesterday, dislikes multi-pill regimen. Objective - Exam Narrative Exam: Constitutional: Alert, cooperative. No acute distress Head, Ears, Nose: Normocephalic, atraumatic. External ears, nose normal Eyes: Conjunctivae/corneas clear. No icterus. No ptosis. Neck: Supple, no meningeal signs Oral: no thrush Cardiovascular: S1, S2 normal. Respiratory: Good air entry, clear to auscultation bilaterally GI: Soft, non-tender; bowel sounds normal. No peritoneal signs Musculoskeletal: No pedal edema, no cyanosis. Skin: No rash or abscess Hem/Lymphatic: No palpable cervical or supraclavicular nodes. No lymphangitis Psych: Mood ok. Affect normal Neurological: Awake, alert, oriented. Right hemiparesis - Constitutional Vitals: Vital Signs Temp Pulse Resp BP Pulse Ox 97.9 F 73 18 116/73 94 03/25/19 08:10 03/25/19 08:10 03/25/19 08:10 03/25/19 08:10 03/25/19 08:10 Temperature -Last 24 Hours Temperature 97.9 F Temperature 98.8 F Temperature 98 F - Labs CBC & Chem 7: 03/18/19 07:49 03/20/19 11:07
[2019-03-25] MEDS: SULFAMETHOXAZOLE/TRIMETHOPRIM 800/160MG DS TAB PO SCH (16:39)
[2019-03-25] MEDS: ENOXAPARIN 40 MG/0.4 ML INJ SUB-Q SCH (22:09)
[2019-03-26] MEDS: DOCUSATE SODIUM 100 MG CAP PO SCH ×2 (08:37→22:11)
[2019-03-26] MEDS: TENOFOVIR 300 MG TAB PO SCH (08:37)
[2019-03-26] MEDS: POLYETHYLENE GLYCOL 3350 17 GM POWDER PO SCH ×2 (08:37→08:39)
[2019-03-26] MEDS: DOLUTEGRAVIR 50 MG TAB PO SCH (08:37)
[2019-03-26] MEDS: ASPIRIN EC 325 MG TAB PO SCH (08:37)
[2019-03-26] MEDS: SERTRALINE 50 MG TAB PO SCH (08:38)
[2019-03-26] MEDS: EMTRICITABINE 200 MG CAP PO SCH (08:38)
[2019-03-26] MEDS: SULFAMETHOXAZOLE/TRIMETHOPRIM 800/160MG DS TAB PO SCH (15:33)
[2019-03-26] MEDS: ENOXAPARIN 40 MG/0.4 ML INJ SUB-Q SCH (22:10)
[2019-03-27] MEDS: DOLUTEGRAVIR 50 MG TAB PO SCH (08:08)
[2019-03-27] MEDS: SERTRALINE 50 MG TAB PO SCH (08:08)
[2019-03-27] MEDS: DOCUSATE SODIUM 100 MG CAP PO SCH ×2 (08:08→22:01)
[2019-03-27] MEDS: TENOFOVIR 300 MG TAB PO SCH (08:08)
[2019-03-27] MEDS: EMTRICITABINE 200 MG CAP PO SCH (08:08)
[2019-03-27] MEDS: ASPIRIN EC 325 MG TAB PO SCH (08:08)
[2019-03-27] MEDS: POLYETHYLENE GLYCOL 3350 17 GM POWDER PO SCH (08:10)
--- NOTE | 2019-03-27 09:43 | Progress Note ---
Assessment and Plan Cultures: None A/P: 53-year-old male with HIV, not on medications, seizure disorder, recent CVA. #HIV: he was diagnosed in 1985, used to see Dr. Levine, not on meds for 2 years. Would like to start treatment. CG=[id number] on 03/14/2019 #Acute CVA: At inpatient rehabilitation #Seizure disorder: On medications #Major depression: psych following. On 1013. Recs: CD4 count 46 with 3% - will start Bactrim. Will probably be a good candidate for Biktarvy to avoid any drug drug interactions with his psych meds Genotype likely to show wild type virus since off medications for a few years. Will likely need to start medications and follow up with repeat genotype if he does not respond appropriately. Due to lack of inpatient combination pills - will start dolutegravir, tenofovir DF, and emtricitabine. Will change to Biktarvy as outpatient. - he is amenable to this plan. Please discharge with 2 weeks of medications. I will see him in the clinic as soon as possible after discharge. will follow [facility] M: [phone] O: [phone] F: [phone] Subjective Date of service: 03/27/19 Principal diagnosis: CVA Interval history: Ongoing rehab, Slow progress. Expects discharge next week. Objective - Exam Narrative Exam: Constitutional: Alert, cooperative. No acute distress Head, Ears, Nose: Normocephalic, atraumatic. External ears, nose normal Eyes: Conjunctivae/corneas clear. No icterus. No ptosis. Neck: Supple, no meningeal signs Oral: no thrush Cardiovascular: S1, S2 normal. Respiratory: Good air entry, clear to auscultation bilaterally GI: Soft, non-tender; bowel sounds normal. No peritoneal signs Musculoskeletal: No pedal edema, no cyanosis. Skin: No rash or abscess Hem/Lymphatic: No palpable cervical or supraclavicular nodes. No lymphangitis Psych: Mood ok. Affect normal Neurological: Awake, alert, oriented. Right hemiparesis - Constitutional Vitals: Vital Signs Temp Pulse Resp BP Pulse Ox 97.9 F 78 18 96/67 95 03/27/19 07:53 03/27/19 07:53 03/27/19 07:53 03/27/19 07:53 03/27/19 07:53 Temperature -Last 24 Hours Temperature 97.9 F Temperature 97.8 F Temperature 97.6 F Temperature 97.3 F - Labs CBC & Chem 7: 03/18/19 07:49 03/20/19 11:07
--- NOTE | 2019-03-27 10:09 | Progress Note ---
Subjective Date of service: 03/27/19 Principal diagnosis: CVA Interval history: 63-year-old male presented with right hemiparesis and slurred speech. MRI showed a subacute ischemic stroke in the left evelyn with chronic white matter changes. Was started on secondary stroke prevention. No significant stenosis seen on carotid duplex. Echocardiogram essentially normal. Patient underwent therapy and was deemed appropriate for acute inpatient rehabilitation. Patient noted to have HIV as well as seizure disorder but is not on medication for either. Patient is participating in therapy and making slow progress. Taking rest breaks as needed. Wants to go home. Discussed need for additional care/supervision and the planned arrival of his sister to provide assistance. -BM. Denies pain, palpitations, dyspnea, cough, N/V, or joint pain. Having difficulty with c arryover. Did better with distance walked today but still has issues with challenging tasks and dynamic balance. Heart rate is stable. All records, vitals, labs and medications were reviewed. No other issues per patient, nursing or therapy. Objective - Exam Narrative Exam: MUSCULOSKELETAL SPECIALTY EXAM CONSTITUTIONAL: Well developed, well nourished, appropriately groomed. LEFT hand dominant. RESPIRATORY: Clear to auscultation bilaterally, decreased on left base. no increased work of breathing CARDIOVASCULAR: Regular rate, regular Rhythm, no swelling, edema or tenderness in BUE or BLE. All extremities warm. GI: + bowel sounds, soft, NTTP, nondistended. INTEGUMENTARY: Normal, no lesion, rash, masses or bruising noted in extremities. MUSCULOSKELETAL: BUE and BLE normal without defect, crepitus, subluxation, effusion, arthritic changes or TTP. R 2/5, with right foot drop L 4+ /5 ROM decreased on right Tone flaccid on right NEURO: CN VII : right facial droop CN XII : Tongue protrudes right Sensation intact in all extremities without extinction. No tremor noted in 4 extremities. Naming and repetition intact. Follows 2 step commands. Aphasia not appreciated Dysarthria not appreciated Dysphagia not present Neglect possibly mild POSTURE and GAIT: Sitting posture good. Balance appears reasonable. Gait reasonable with RW, some LOB, distance improving but not safe during ambulation. PSYCH: Alert, disoriented, flat affect. Questionable mild dementia. - Constitutional Vitals: Vital Signs - 12hr 03/27/19 03/27/19 04:43 07:53 Temperature 36.6 C 36.6 C Pulse Rate 80 78 Respiratory 18 18 Rate Blood Pressure 102/69 96/67 O2 Sat by Pulse 81 L 95 Oximetry - Allied health notes Allied health notes reviewed: nursing, PT, ST, OT FIMS assessment as documented by PT/OT/ST: Grooming Patient cleans teeth/dentures: Yes Patient villagran/brushes hair: Yes Patient washes, rinses and Yes dries face: Patient washes, rinses and Yes dries hands: Patient shaves: No Patient performs (no make-up/ / (100%) shaving): Grooming FIM Score 6. Modified [place] (Needs equipment/device . Extra time.) Social interaction/Memory/Problem solving Social Interaction FIM Score 6. Mod. [place] (Mostly appropriate. May need meds. No supv.) Memory FIM Score 3. Moderate Assistance (Recognizes and remembers 50-74%.) Problem Solving FIM Score 4. Minimal Assistance (Solves routine problems 75-90%.) Transfers Mode of Locomotion: Wheelchair Bed/Chair/Wheelchair Transfers 4. Minimal Assistance (Patient = 75% or more. FIM Score Needs touching.) Toilet Transfers FIM Score 4. Minimal Assistance (Patient = 75% or more. Needs touching.) Locomotion- walk/wheelchair Most Frequent Mode of Wheelchair Locomotion: Ambulation Distance 30 Eating Eating FIM Score 5. Supervision/Set-Up (Needs help w/ containers, cutting meat, etc.) Dressing-Upper body Patient retrieves clothing No items: Patient applies/removes UE No prosthesis or orthosis: Upper Body Dressing FIM Score 5. Supv./Set-Up ([place] sets out clothes or applies pros./orth.) Dressing-lower body Lower Body Dressing Device Elastic Laces Patient retrieves clothing No items: Patient applies/removes LE No prosthesis or orthosis: Lower Body Dressing FIM Score 4. Minimal Assistance (Patient = 75% or more. Needs touching.) - Labs CBC & Chem 7: 03/18/19 07:49 03/20/19 11:07 Assessment and Plan CVA: Continue secondary stroke prevention. 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 Monitor for shoulder hand syndrome. Monitor for worsening neurologic changes. HIV: Not on any medications at time of admission. Patient told previous providers that his last numbers were undetectable for virus and he no longer takes medications. Consult ID. Labs reviewed. Anti-retroviral and prophylactic antibiotics by ID. Seizure disorder: Continue seizure precaution patient also not taken any medications for this. Monitor and if there are any signs of recurrent seizure will start antiepileptic and consult neurology. Neurology saw the patient on the acute care side and did not start antiepileptics. Depression with SI: Consult psychiatry, Zoloft started. Off of 1013 Hypokalemia: Replace, monitor. Left hemidiaphragm: Imaging reviewed. Pulm consult. Discussed with surgery, Dr. Spence. NG tube removed. CT abdomen and chest reviewed imaging and report. Fluoroscopic sniff test not real helpful. We'll need to find outside provider for follow-up and surveillance. Due to significant elevation, patient will have increased risk of pulmonary disease as well as cardiac issues. Pulmonary nodule: follow up with pulmonology for repeat CT Z73.6 ADL dysfunction: OT will work on improving ability to perform ADLs (including assistive devices) to increase independence and decrease caregiver burden and improve functional transfers and mobility training. R26.2 Difficulty walking: PT will work on gait training and proper use of assistive devices and advance as appropriate to use of stairs and outside ambulation on uneven surfaces. R26.81 Unsteadiness on feet: PT will work on improving static and dynamic sitting and standing balance as well as proper use of assistive devices to decrease risk of falls. R26.89 Abnormality of gait: PT will work to improve safety and efficiency of gait through neuromotor training and gait training along with instruction on proper use of assistive devices. M62.81 Muscle weakness: PT & OT will work on strengthening exercises to improve functional strength including mixture of closed and open kinetic chain exercises. R53.81 Debility: PT & OT will work on improving overall functional status to improve participation with ADLs, mobility and social involvement. R53.83 Fatigue: PT & OT will work on improving endurance through aerobic e xercises and therapeutic activity while monitoring patients tolerance for activity and vital signs as needed. DVT ppx: Lovenox Pain: Continue physical modalities in therapy and pain medications as needed to achieve functional pain control. Sleep: Monitor and address as needed. Bowel: Monitor and address as needed. Pt refusing bowel meds, discussed. Appetite: Monitor and address as needed. Discharge planning: Pending therapy progress and care plan meeting. Will continue discussion with therapy team, SW, patient and family. Restrictions/ Precautions: Falls WB status: FWB Functional Hx: ADLs: Independent Cognition: Independent Mobility: No AD Barriers to Discharge: Decreased mobility and ability to perform self care, balance deficits, weakness Estimated Length of Stay: 14-21 days Discharge Destination: Not safe to return home alone, looking for options. Sister may stay with him at home.
[2019-03-27] MEDS: SULFAMETHOXAZOLE/TRIMETHOPRIM 800/160MG DS TAB PO SCH (15:17)
[2019-03-27] MEDS: ENOXAPARIN 40 MG/0.4 ML INJ SUB-Q SCH (22:00)
[2019-03-28] MEDS: DOLUTEGRAVIR 50 MG TAB PO SCH (10:18)
[2019-03-28] MEDS: ASPIRIN EC 325 MG TAB PO SCH (11:09)
[2019-03-28] MEDS: EMTRICITABINE 200 MG CAP PO SCH (11:16)
[2019-03-28] MEDS: SERTRALINE 50 MG TAB PO SCH (11:20)
[2019-03-28] MEDS: TENOFOVIR 300 MG TAB PO SCH (12:21)
[2019-03-28] MEDS: DOCUSATE SODIUM 100 MG CAP PO SCH ×2 (13:11→21:51)
[2019-03-28] MEDS: POLYETHYLENE GLYCOL 3350 17 GM POWDER PO SCH (13:12)
[2019-03-28] MEDS: SULFAMETHOXAZOLE/TRIMETHOPRIM 800/160MG DS TAB PO SCH (14:08)
[2019-03-28] MEDS: ENOXAPARIN 40 MG/0.4 ML INJ SUB-Q SCH (21:52)
[2019-03-29] MEDS: POLYETHYLENE GLYCOL 3350 17 GM POWDER PO SCH (08:34)
[2019-03-29] MEDS: TENOFOVIR 300 MG TAB PO SCH (08:34)
[2019-03-29] MEDS: EMTRICITABINE 200 MG CAP PO SCH (08:34)
[2019-03-29] MEDS: ASPIRIN EC 325 MG TAB PO SCH (08:34)
[2019-03-29] MEDS: DOLUTEGRAVIR 50 MG TAB PO SCH (08:34)
[2019-03-29] MEDS: SERTRALINE 50 MG TAB PO SCH (08:34)
[2019-03-29] MEDS: DOCUSATE SODIUM 100 MG CAP PO SCH ×2 (08:35→22:18)
--- NOTE | 2019-03-29 10:08 | Progress Note ---
Assessment and Plan Cultures: None A/P: 53-year-old male with HIV, not on medications, seizure disorder, recent CVA. #HIV: he was diagnosed in 1985, used to see Dr. Levine, not on meds for 2 years. Would like to start treatment. ZL=[id number],000 on 03/14/2019 #Acute CVA: At inpatient rehabilitation #Seizure disorder: On medications #Major depression: psych following. On 1013. Recs: CD4 count 46 with 3% - will start Bactrim. Will probably be a good candidate for Biktarvy to avoid any drug drug interactions with his psych meds Genotype likely to show wild type virus since off medications for a few years. Will likely need to start medications and follow up with repeat genotype if he does not respond appropriately. Due to lack of inpatient combination pills - will start dolutegravir, tenofovir DF, and emtricitabine. Will change to Biktarvy as outpatient. - he is amenable to this plan. Please discharge with 2 weeks of medications. I will see him in the clinic as soon as possible after discharge. will follow Dr. Louise taking over tomorrow. [facility] M: [phone] O: [phone] F: [phone] Subjective Date of service: 03/29/19 Principal diagnosis: CVA Interval history: Ongoing rehab, Slow progress. Expects discharge next week. Objective - Exam Narrative Exam: Constitutional: Alert, cooperative. No acute distress Head, Ears, Nose: Normocephalic, atraumatic. External ears, nose normal Eyes: Conjunctivae/corneas clear. No icterus. No ptosis. Neck: Supple, no meningeal signs Oral: no thrush Cardiovascular: S1, S2 normal. Respiratory: Good air entry, clear to auscultation bilaterally GI: Soft, non-tender; bowel sounds normal. No peritoneal signs Musculoskeletal: No pedal edema, no cyanosis. Skin: No rash or abscess Hem/Lymphatic: No palpable cervical or supraclavicular nodes. No lymphangitis Psych: Mood ok. Affect normal Neurological: Awake, alert, oriented. Right hemiparesis - Constitutional Vitals: Vital Signs Temp Pulse Resp BP Pulse Ox 97.2 F L 79 18 97/59 97 03/29/19 07:35 03/29/19 07:35 03/29/19 07:35 03/29/19 07:35 03/29/19 07:35 Temperature -Last 24 Hours Temperature 97.2 F Temperature 97.5 F Temperature 97.9 F - Labs CBC & Chem 7: 03/18/19 07:49 03/20/19 11:07
[2019-03-29] MEDS: SULFAMETHOXAZOLE/TRIMETHOPRIM 800/160MG DS TAB PO SCH (14:30)
[2019-03-29] MEDS: ENOXAPARIN 40 MG/0.4 ML INJ SUB-Q SCH (22:19)
[2019-03-30 07:53] LABS: Hematocrit 45.7 % (35.5-45.6); Hemoglobin 14.7 gm/dl (11.8-15.2); Mean Corpuscular HGB Conc 32 % (32-34); Mean Corpuscular Volume 90 fl (84-94); Platelet Count 198 K/mm3 (140-440); Red Blood Count 5.08 M/mm3 (3.65-5.03); Red Cell Distribution Width 14.3 % (13.2-15.2)
[2019-03-30 08:05] LABS: Calcium 9.2 mg/dL (8.4-10.2)
--- NOTE | 2019-03-30 09:41 | Progress Note ---
Subjective Date of service: 03/30/19 Principal diagnosis: CVA Interval history: 63-year-old male presented with right hemiparesis and slurred speech. MRI showed a subacute ischemic stroke in the left evelyn with chronic white matter changes. Was started on secondary stroke prevention. No significant stenosis seen on carotid duplex. Echocardiogram essentially normal. Patient underwent therapy and was deemed appropriate for acute inpatient rehabilitation. Patient noted to have HIV as well as seizure disorder but is not on medication for either. Patient is participating in therapy and making slow progress. Taking rest breaks as needed. Wants to go home. Discussed need for additional care/supervision and the planned arrival of his sister to provide assistance. +BM. Denies pain, palpitations, dyspnea, cough, N/V, or joint pain. Having difficulty with c [place]ryover. Heart rate is stable. Labs stable All records, vitals, labs and medications were reviewed. No other issues per patient, nursing or therapy. Objective - Exam Narrative Exam: MUSCULOSKELETAL SPECIALTY EXAM CONSTITUTIONAL: Well developed, well nourished, appropriately groomed. LEFT hand dominant. RESPIRATORY: Clear to auscultation bilaterally, decreased on left base. no increased work of breathing CARDIOVASCULAR: Regular rate, regular Rhythm, no swelling, edema or tenderness in BUE or BLE. All extremities warm. GI: + bowel sounds, soft, NTTP, nondistended. INTEGUMENTARY: Normal, no lesion, rash, masses or bruising noted in extremities. MUSCULOSKELETAL: Slight right shoulder sublux, otherwise, BUE and BLE normal without defect, crepitus, subluxation, effusion, arthritic changes or TTP. R 2/5, with right foot drop L 4+ /5 ROM decreased on right Tone flaccid on right NEURO: CN VII : right facial droop CN XII : Tongue protrudes right Sensation intact in all extremities without extinction. No tremor noted in 4 extremities. Naming and repetition intact. Follows 2 step commands. Aphasia not appreciated Dysarthria not appreciated Dysphagia not present Neglect possibly mild POSTURE and GAIT: Sitting posture good. Balance appears reasonable. Gait reasonable with RW, some LOB, distance improving but not safe during ambulation. PSYCH: Alert, disoriented, flat affect. Questionable mild dementia. - Constitutional Vitals: Vital Signs - 12hr 03/30/19 08:09 Temperature 36.6 C Pulse Rate 82 Respiratory 18 Rate Blood Pressure 106/73 O2 Sat by Pulse 97 Oximetry - Allied health notes Allied health notes reviewed: nursing, PT, ST, OT FIMS assessment as documented by PT/OT/ST: Grooming Patient cleans teeth/dentures: Yes Patient villagran/brushes hair: Yes Patient washes, rinses and Yes dries face: Patient washes, rinses and Yes dries hands: Patient shaves: No Patient performs (no make-up/ 07/31 (100%) shaving): Grooming FIM Score 6. Modified [place] (Needs equipment/device . Extra time.) Social interaction/Memory/Problem solving Social Interaction FIM Score 6. Mod. [place] (Mostly appropriate. May need meds. No supv.) Memory FIM Score 3. Moderate Assistance (Recognizes and remembers 50-74%.) Problem Solving FIM Score 4. Minimal Assistance (Solves routine problems 75-90%.) Transfers Mode of Locomotion: Wheelchair Bed/Chair/Wheelchair Transfers 4. Minimal Assistance (Patient = 75% or more. FIM Score Needs touching.) Toilet Transfers FIM Score 4. Minimal Assistance (Patient = 75% or more. Needs touching.) Locomotion- walk/wheelchair Most Frequent Mode of Wheelchair Locomotion: Ambulation Distance 30 Eating Eating FIM Score 5. Supervision/Set-Up (Needs help w/ containers, cutting meat, etc.) Dressing-Upper body Patient retrieves clothing No items: Patient applies/removes UE No prosthesis or orthosis: Upper Body Dressing FIM Score 4. Minimal Assistance (Patient = 75% or more. Needs touching.) Dressing-lower body Lower Body Dressing Device Elastic Laces Patient retrieves clothing No items: Patient applies/removes LE No prosthesis or orthosis: Lower Body Dressing FIM Score 4. Minimal Assistance (Patient = 75% or more. Needs touching.) - Labs CBC & Chem 7: 03/30/19 07:33 03/30/19 07:33 Labs: Laboratory Results - last 72 hr 03/30/19 03/30/19 07:33 07:33 WBC 3.7 L RBC 5.08 H Hgb 14.7 Hct 45.7 H MCV 90 MCH 29 MCHC 32 RDW 14.3 Plt Count 198 Sodium 142 Potassium 4.5 Chloride 105.3 Carbon Dioxide 25 Anion Gap 16 BUN 20 Creatinine 1.3 Estimated GFR 56 BUN/Creatinine Ratio 15 Glucose 89 Calcium 9.2 Assessment and Plan CVA: Continue secondary stroke prevention. 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 Monitor for shoulder hand syndrome. Monitor for worsening neurologic changes. HIV: Not on any medications at time of admission. Patient told previous prov iders that his last numbers were undetectable for virus and he no longer takes medications. Consult ID. Labs reviewed. Anti-retroviral and prophylactic antibiotics by ID. Seizure disorder: Continue seizure precaution patient also not taken any medications for this. Monitor and if there are any signs of recurrent seizure will start antiepileptic and consult neurology. Neurology saw the patient on the acute care side and did not start antiepileptics. Depression with SI: Consult psychiatry, Zoloft started. Off of 1013 Hypokalemia: Replace, monitor. Left hemidiaphragm: Imaging reviewed. Pulm consult. Discussed with surgery, Dr. Spence. NG tube removed. CT abdomen and chest reviewed imaging and report. Fluoroscopic sniff test not real helpful. We'll need to find outside provider for follow-up and surveillance. Pulmonary nodule: follow up with pulmonology for repeat CT Z73.6 ADL dysfunction: OT will work on improving ability to perform ADLs (including assistive devices) to increase independence and decrease caregiver burden and improve functional transfers and mobility training. R26.2 Difficulty walking: PT will work on gait training and proper use of assistive devices and advance as appropriate to use of stairs and outside ambulation on uneven surfaces. R26.81 Unsteadiness on feet: PT will work on improving static and dynamic sitting and standing balance as well as proper use of assistive devices to decrease risk of falls. R26.89 Abnormality of gait: PT will work to improve safety and efficiency of gait through neuromotor training and gait training along with instruction on proper use of assistive devices. M62.81 Muscle weakness: PT & OT will work on strengthening exercises to improve functional strength including mixture of closed and open kinetic chain ex ercises. R53.81 Debility: PT & OT will work on improving overall functional status to improve participation with ADLs, mobility and social involvement. R53.83 Fatigue: PT & OT will work on improving endurance through aerobic exercises and therapeutic activity while monitoring patients tolerance for activity and vital signs as needed. DVT ppx: Lovenox Pain: Continue physical modalities in therapy and pain medications as needed to achieve functional pain control. Sleep: Monitor and address as needed. Bowel: Monitor and address as needed. Pt refusing bowel meds, discussed. Appetite: Monitor and address as needed. Discharge planning: Pending therapy progress and care plan meeting. Will c ontinue discussion with therapy team, SW, patient and family. Restrictions/ Precautions: Falls WB status: FWB Functional Hx: ADLs: Independent Cognition: Independent Mobility: No AD Barriers to Discharge: Decreased mobility and ability to perform self care, balance deficits, weakness Estimated Length of Stay: 14-21 days Discharge Destination: Not safe to return home alone, looking for options. Sister may stay with him at home.
[2019-03-30] MEDS: SERTRALINE 50 MG TAB PO SCH (10:54)
[2019-03-30] MEDS: POLYETHYLENE GLYCOL 3350 17 GM POWDER PO SCH (10:54)
[2019-03-30] MEDS: TENOFOVIR 300 MG TAB PO SCH (10:54)
[2019-03-30] MEDS: DOLUTEGRAVIR 50 MG TAB PO SCH (10:54)
[2019-03-30] MEDS: EMTRICITABINE 200 MG CAP PO SCH (10:54)
[2019-03-30] MEDS: ASPIRIN EC 325 MG TAB PO SCH (10:54)
--- NOTE | 2019-03-30 13:57 | Progress Note ---
Assessment and Plan Cultures: None A/P: 53-year-old male with HIV, not on medications, seizure disorder, recent CVA. #HIV/AIDS: he was diagnosed in 1985, used to see Dr. Levine, not on meds for 2 years. Would like to start treatment. YF=610,000 on 03/14/2019. CD4 count is low at 46. Genotype showed wild type virus with no resistance mutations. #Acute CVA: At inpatient rehabilitation #Seizure disorder: On medications #Major depression: psych following. Recs: continue PO Bactrim prophylaxis due to lack of inpatient combination pills - continue PO dolutegravir, tenofovir DF, and emtricitabine daily. Plan is to change to single pill Biktarvy as outpatient Please discharge with 2 weeks of medications. Will be seen in ID clinic soon post discharge by Dr. Montalvo or wa. Sergio Louise MD, FACP [facility] ([facility] C: [phone] O: [phone] F: [phone] Subjective Date of service: 03/30/19 Principal diagnosis: CVA Interval history: No fever. No complaints. Tolerating HIV meds well without issues. No nausea, vomiting or diarrhea. Objective - Exam Narrative Exam: Physical Exam: Constitutional: Alert, cooperative. No acute distress Head, Ears, Nose: Normocephalic, atraumatic. External ears, nose normal Eyes: Conjunctivae/corneas clear. No icterus. No ptosis. Neck: Supple, no meningeal signs Oral: no thrush Cardiovascular: S1, S2 normal. Respiratory: Good air entry, clear to auscultation bilaterally GI: Soft, non-tender; bowel sounds normal. No peritoneal signs Musculoskeletal: No pedal edema, no cyanosis. Skin: No rash or abscess Hem/Lymphatic: No palpable cervical or supraclavicular nodes. No lymphangitis Psych: Mood ok. Affect normal Neurological: Awake, alert, oriented. Right hemiparesis - Constitutional Vitals: Vital Signs Temp Pulse Resp BP Pulse Ox 97.9 F 82 18 106/73 97 03/30/19 08:09 03/30/19 08:09 03/30/19 08:09 03/30/19 08:09 03/30/19 08:09 Temperature -Last 24 Hours Temperature 97.9 F Temperature 98.3 F - Labs CBC & Chem 7: 03/30/19 07:33 03/30/19 07:33 Labs: Abnormal lab results 03/30/19 Range/Units 07:33 WBC 3.7 L (4.5-11.0) K/mm3 RBC 5.08 H (3.65-5.03) M/mm3 Hct 45.7 H (35.5-45.6) %
[2019-03-30] MEDS: DOCUSATE SODIUM 100 MG CAP PO SCH ×2 (14:49→21:18)
[2019-03-30] MEDS: SULFAMETHOXAZOLE/TRIMETHOPRIM 800/160MG DS TAB PO SCH (14:58)
[2019-03-30] MEDS: ENOXAPARIN 40 MG/0.4 ML INJ SUB-Q SCH (21:19)
[2019-03-31] MEDS: ASPIRIN EC 325 MG TAB PO SCH (08:39)
[2019-03-31] MEDS: EMTRICITABINE 200 MG CAP PO SCH (08:39)
[2019-03-31] MEDS: TENOFOVIR 300 MG TAB PO SCH (08:39)
[2019-03-31] MEDS: DOLUTEGRAVIR 50 MG TAB PO SCH (08:39)
[2019-03-31] MEDS: SERTRALINE 50 MG TAB PO SCH (08:39)
[2019-03-31] MEDS: DOCUSATE SODIUM 100 MG CAP PO SCH ×2 (08:40→22:25)
[2019-03-31] MEDS: POLYETHYLENE GLYCOL 3350 17 GM POWDER PO SCH (08:40)
--- NOTE | 2019-03-31 09:23 | Progress Note ---
Subjective Date of service: 03/31/19 Principal diagnosis: CVA Interval history: 63-year-old male presented with right hemiparesis and slurred speech. MRI showed a subacute ischemic stroke in the left evelyn with chronic white matter changes. Was started on secondary stroke prevention. No significant stenosis seen on carotid duplex. Echocardiogram essentially normal. Patient underwent therapy and was deemed appropriate for acute inpatient rehabilitation. Patient noted to have HIV as well as seizure disorder but is not on medication for either. Patient is participating in therapy and making slow progress. Taking rest breaks as needed. Wants to go home. Discussed need for additional care/supervision and the planned arrival of his sister to provide assistance. +BM. Denies pain, palpitations, dyspnea, cough, N/V, or joint pain. Having difficulty with c [place]ryover. Heart rate is stable. Blood pressure was slightly on the low side this morning but no symptoms. Discussed during team conference. Off schedule today due to Thanksgiving last week. We'll continue to plan to discharge home with sister on . Patient will not be reasonable to live alone without any supervision or assistance. We will have social work see him along with home health as well as here before he discharges. We'll also discuss issue with his sister. He will need to have follow-up for infectious disease, pulmonology, psychiatry and PCP. Discussed with patient the need to have assistance at home and him not being safe to be home alone, and as usual he put back on this and states that he wants to go home alone and that his sister will only be there temporarily. He lives in a second-floor apartment and will need assistance getting up and down stairs. Would be preferable if he could find a first-floor arrangement. All records, vitals, labs and medications were reviewed. No other issues per patient, nursing or therapy. Objective - Exam Narrative Exam: MUSCULOSKELETAL SPECIALTY EXAM CONSTITUTIONAL: Well developed, well nourished, appropriately groomed. LEFT hand dominant. RESPIRATORY: Clear to auscultation bilaterally, decreased on left base. no increased work of breathing CARDIOVASCULAR: Regular rate, regular Rhythm, no swelling, edema or tenderness in BUE or BLE. All extremities warm. GI: + bowel sounds, soft, NTTP, nondistended. INTEGUMENTARY: Normal, no lesion, rash, masses or bruising noted in extremities. MUSCULOSKELETAL: Slight right shoulder sublux, otherwise, BUE and BLE normal without defect, crepitus, subluxation, effusion, arthritic changes or TTP. R 4-/5, with right foot drop on RLE, RUE 2/5 L 4+ /5 ROM decreased on right Tone flaccid on right NEURO: CN VII : right facial droop CN XII : Tongue protrudes right Sensation intact in all extremities without extinction. No tremor noted in 4 extremities. Naming and repetition intact. Follows 2 step commands. Aphasia not appreciated Dysarthria not appreciated Dysphagia not present Neglect possibly mild POSTURE and GAIT: Sitting posture good. Balance appears reasonable. Gait reasonable with RW, some LOB, distance improving but not safe during ambulation. PSYCH: Alert, disoriented, flat affect. Questionable mild dementia. - Constitutional Vitals: Vital Signs - 12hr 03/31/19 03/31/19 03/31/19 00:25 00:26 00:30 Temperature 36.3 C L 36.3 C L Pulse Rate 86 86 Respiratory 17 17 Rate Blood Pressure 109/66 O2 Sat by Pulse 96 97 Oximetry 03/31/19 03/31/19 05:09 07:30 Temperature 36.6 C 36.7 C Pulse Rate 72 75 Respiratory 18 18 Rate Blood Pressure 101/70 97/65 O2 Sat by Pulse 96 96 Oximetry - Allied health notes Allied health notes reviewed: nursing, PT, ST, OT FIMS assessment as documented by PT/OT/ST: Grooming Patient cleans teeth/dentures: Yes Patient villagran/brushes hair: Yes Patient washes, rinses and Yes dries face: Patient washes, rinses and Yes dries hands: Patient shaves: No Patient performs (no make-up/ 07/31 (100%) shaving): Grooming FIM Score 6. Modified [place] (Needs equipment/device . Extra time.) Social interaction/Memory/Problem solving Social Interaction FIM Score 5. Supervision (Needs supv. <10%. Needs encouragement to participate.) Memory FIM Score 6. Modified [place](Mild difficulty remembering people/routines.) Problem Solving FIM Score 5. Supervision (Needs cueing <10% to solve routine problems.) Transfers Mode of Locomotion: Wheelchair Bed/Chair/Wheelchair Transfers 4. Minimal Assistance (Patient = 75% or more. FIM Score Needs touching.) Toilet Transfers FIM Score 4. Minimal Assistance (Patient = 75% or more. Needs touching.) Locomotion- walk/wheelchair Most Frequent Mode of Wheelchair Locomotion: Ambulation Distance 30 Eating Eating FIM Score 5. Supervision/Set-Up (Needs help w/ containers, cutting meat, etc.) Dressing-Upper body Patient retrieves clothing No items: Patient applies/removes UE No prosthesis or orthosis: Upper Body Dressing FIM Score 4. Minimal Assistance (Patient = 75% or more. Needs touching.) Dressing-lower body Lower Body Dressing Device Elastic Laces Patient retrieves clothing No items: Patient applies/removes LE No prosthesis or orthosis: Lower Body Dressing FIM Score 4. Minimal Assistance (Patient = 75% or more. Needs touching.) - Labs CBC & Chem 7: 03/30/19 07:33 03/30/19 07:33 Labs: Laboratory Results - last 72 hr 03/30/19 03/30/19 07:33 07:33 WBC 3.7 L RBC 5.08 H Hgb 14.7 Hct 45.7 H MCV 90 MCH 29 MCHC 32 RDW 14.3 Plt Count 198 Sodium 142 Potassium 4.5 Chloride 105.3 Carbon Dioxide 25 Anion Gap 16 BUN 20 Creatinine 1.3 Estimated GFR 56 BUN/Creatinine Ratio 15 Glucose 89 Calcium 9.2 Assessment and Plan CVA: Continue secondary stroke prevention. 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 Monitor for shoulder hand syndrome. Monitor for worsening neurologic changes. HIV: Not on any medications at time of admission. Patient told previous providers that his last numbers were undetectable for virus and he no longer takes medications. Consult ID. Labs reviewed. Anti-retroviral and prophylactic antibiotics by ID. Seizure disorder: Continue seizure precaution patient also not taken any medications for this. Monitor and if there are any signs of recurrent seizure will start antiepileptic and consult neurology. Neurology saw the patient on the acute care side and did not start antiepileptics. Depression with SI: Consult psychiatry, Zoloft started. Off of 1013 Hypokalemia: Replace, monitor. Left hemidiaphragm: Imaging reviewed. Pulm consult. Discussed with surgery, Dr. Spence. NG tube removed. CT abdomen and chest reviewed imaging and report. Fluoroscopic sniff test not real helpful. We'll need to find outside provider for follow-up and surveillance. Pulmonary nodule: follow up with pulmonology for repeat CT Z73.6 ADL dysfunction: OT will work on improving ability to perform ADLs (including assistive devices) to increase independence and decrease caregiver burden and improve functional transfers and mobility training. R26.2 Difficulty walking: PT will work on gait training and proper use of assistive devices and advance as appropriate to use of stairs and outside ambulation on uneven surfaces. R26.81 Unsteadiness on feet: PT will work on improving static and dynamic sitting and standing balance as well as proper use of assistive devices to decrease risk of falls. R26.89 Abnormality of gait: PT will work to improve safety and efficiency of gait through neuromotor training and gait training along with instruction on proper use of assistive devices. M62.81 Muscle weakness: PT & OT will work on strengthening exercises to improve functional strength including mixture of closed and open kinetic chain exercises. R53.81 Debility: PT & OT will work on improving overall functional status to improve participation with ADLs, mobility and social involvement. R53.83 Fatigue: PT & OT will work on improving endurance through aerobic exercises and therapeutic activity while monitoring patients tolerance for activity and vital signs as needed. DVT ppx: Lovenox Pain: Continue physical modalities in therapy and pain medications as needed to achieve functional pain control. Sleep: Monitor and address as needed. Bowel: Monitor and address as needed. Appetite: Monitor and address as needed. Discharge planning: Pending therapy progress and care plan meeting. Will continue discussion with therapy team, SW, patient and family. Restrictions/ Precautions: Falls WB status: FWB Functional Hx: ADLs: Independent Cognition: Independent Mobility: No AD Barriers to Discharge: Decreased mobility and ability to perform self care, balance deficits, weakness Estimated Length of Stay: 14-21 days Discharge Destination: Not safe to return home alone, looking for options. Discussed long-term options with patient, he is not open at this time to any facility based arrangement. He also does not have a desire to have someone live with him in order to provide care. His sister will be there for a short period of time. Have asked for social work to get involved.
[2019-03-31] MEDS: SULFAMETHOXAZOLE/TRIMETHOPRIM 800/160MG DS TAB PO SCH (14:28)
[2019-03-31] MEDS: ENOXAPARIN 40 MG/0.4 ML INJ SUB-Q SCH (22:25)
--- NOTE | 2019-04-01 08:02 | Progress Note ---
Subjective Date of service: 04/01/19 Principal diagnosis: CVA Interval history: 63-year-old male presented with right hemiparesis and slurred speech. MRI showed a subacute ischemic stroke in the left evelyn with chronic white matter changes. Was started on secondary stroke prevention. No significant stenosis seen on carotid duplex. Echocardiogram essentially normal. Patient underwent therapy and was deemed appropriate for acute inpatient rehabilitation. Patient noted to have HIV as well as seizure disorder but is not on medication for either. Patient is participating in therapy and making slow progress. Taking rest breaks as needed. Wants to go home. Discussed need for additional care/supervision and the planned arrival of his sister to provide assistance. +BM. Denies pain, palpitations, dyspnea, cough, N/V, or joint pain. Having difficulty with c arryover. Heart rate is stable. Blood pressure stable. No acute distress no problems overnight.. All records, vitals, labs and medications were reviewed. No other issues per patient, nursing or therapy. Objective - Exam Narrative Exam: MUSCULOSKELETAL SPECIALTY EXAM CONSTITUTIONAL: Well developed, well nourished, appropriately groomed. LEFT hand dominant. RESPIRATORY: Clear to auscultation bilaterally, decreased on left base. no increased work of breathing CARDIOVASCULAR: Regular rate, regular Rhythm, no swelling, edema or tenderness in BUE or BLE. All extremities warm. GI: + bowel sounds, soft, NTTP, nondistended. INTEGUMENTARY: Normal, no lesion, rash, masses or bruising noted in extremities. MUSCULOSKELETAL: Slight right shoulder sublux, otherwise, BUE and BLE normal without defect, crepitus, subluxation, effusion, arthritic changes or TTP. R 4-/5, with right foot drop on RLE, RUE 3 - 4-/5 L 4+ /5 ROM decreased on right NEURO: CN VII : right facial droop CN XII : Tongue protrudes right Sensation intact in all extremities without extinction. No tremor noted in 4 extremities. Naming and repetition intact. Follows 2 step commands. Aphasia not appreciated Dysarthria not appreciated Dysphagia not present Neglect possibly mild POSTURE and GAIT: Sitting posture good. Balance appears reasonable. Gait reasonable with RW, some LOB, distance improving but not safe during ambulation. PSYCH: Alert, disoriented, flat affect. Questionable mild dementia. - Constitutional Vitals: Vital Signs - 12hr 03/31/19 03/31/19 03/31/19 20:49 20:50 20:57 Temperature 36.7 C Pulse Rate Respiratory 17 Rate Respiratory 17 Rate [Right Foot] Blood Pressure Blood Pressure [Left] O2 Sat by Pulse Oximetry 03/31/19 04/01/19 22:23 07:56 Temperature 36.7 C 36.7 C Pulse Rate 72 73 Respiratory 16 18 Rate Respiratory Rate [Right Foot] Blood Pressure 102/69 Blood Pressure 106/66 [Left] O2 Sat by Pulse 95 96 Oximetry - Allied health notes Allied health notes reviewed: nursing, PT, ST, OT FIMS assessment as documented by PT/OT/ST: Grooming Patient cleans teeth/dentures: Yes Patient villagran/brushes hair: Yes Patient washes, rinses and Yes dries face: Patient washes, rinses and Yes dries hands: Patient shaves: No Patient performs (no make-up/ 07/31 (100%) shaving): Grooming FIM Score 3. Moderate Assistance (Patient = 50% or more) Social interaction/Memory/Problem solving Social Interaction FIM Score 6. Mod. [place] (Mostly appropriate. May need meds. No supv.) Memory FIM Score 4. Minimal Assistance (Recognizes and remembers 75-90%.) Problem Solving FIM Score 3. Moderate Assistance (Solves routine problems 50-74%.) Transfers Mode of Locomotion: Walking Bed/Chair/Wheelchair Transfers 4. Minimal Assistance (Patient = 75% or more. FIM Score Needs touching.) Toilet Transfers FIM Score 5. Supervision (Needs supervision or cueing.) Locomotion- walk/wheelchair Most Frequent Mode of Wheelchair Locomotion: Ambulation Distance 30 Eating Eating FIM Score 5. Supervision/Set-Up (Needs help w/ containers, cutting meat, etc.) Dressing-Upper body Patient retrieves clothing No items: Patient applies/removes UE No prosthesis or orthosis: Upper Body Dressing FIM Score 4. Minimal Assistance (Patient = 75% or more. Needs touching.) Dressing-lower body Lower Body Dressing Device Elastic Laces Patient retrieves clothing No items: Patient applies/removes LE No prosthesis or orthosis: Lower Body Dressing FIM Score 3. Moderate Assistance (Patient = 50% or more) - Labs CBC & Chem 7: 03/30/19 07:33 03/30/19 07:33 Labs: Laboratory Results - last 72 hr 03/30/19 03/30/19 07:33 07:33 WBC 3.7 L RBC 5.08 H Hgb 14.7 Hct 45.7 H MCV 90 MCH 29 MCHC 32 RDW 14.3 Plt Count 198 Sodium 142 Potassium 4.5 Chloride 105.3 Carbon Dioxide 25 Anion Gap 16 BUN 20 Creatinine 1.3 Estimated GFR 56 BUN/Creatinine Ratio 15 Glucose 89 Calcium 9.2 Assessment and Plan CVA: Continue secondary stroke prevention. 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 Monitor for shoulder hand syndrome. Monitor for worsening neurologic changes. HIV: Not on any medications at time of admission. Patient told previous providers that his last numbers were undetectable for virus and he no longer takes medications. Consult ID. Labs reviewed. Anti-retroviral and prophylactic antibiotics by ID. Seizure disorder: Continue seizure precaution patient also not taken any medications for this. Monitor and if there are any signs of recurrent seizure will start antiepileptic and consult neurology. Neurology saw the patient on the acute care side and did not start antiepileptics. Depression with SI: Consult psychiatry, Zoloft started. Off of 1013 Hypokalemia: Replace, monitor. Left hemidiaphragm: Imaging reviewed. Pulm consult. Discussed with surgery, Dr. Spence. NG tube removed. CT abdomen and chest reviewed imaging and report. Fluoroscopic sniff test not real helpful. We'll need to find outside provider for follow-up and surveillance. Pulmonary nodule: follow up with pulmonology for repeat CT Z73.6 ADL dysfunction: OT will work on improving ability to perform ADLs (including assistive devices) to increase independence and decrease caregiver burden and improve functional transfers and mobility training. R26.2 Difficulty walking: PT will work on gait training and proper use of assistive devices and advance as appropriate to use of stairs and outside ambulation on uneven surfaces. R26.81 Unsteadiness on feet: PT will work on improving static and dynamic sitting and standing balance as well as proper use of assistive devices to decrease risk of falls. R26.89 Abnormality of gait: PT will work to improve safety and efficiency of gait through neuromotor training and gait training along with instruction on proper use of assistive devices. M62.81 Muscle weakness: PT & OT will work on strengthening exercises to improve functional strength including mixture of closed and open kinetic chain exercises. R53.81 Debility: PT & OT will work on improving overall functional status to improve participation with ADLs, mobility and social involvement. R53.83 Fatigue: PT & OT will work on improving endurance through aerobic exe rcises and therapeutic activity while monitoring patients tolerance for activity and vital signs as needed. DVT ppx: Lovenox Pain: Continue physical modalities in therapy and pain medications as needed to achieve functional pain control. Sleep: Monitor and address as needed. Bowel: Monitor and address as needed. Appetite: Monitor and address as needed. Discharge planning: Pending therapy progress and care plan meeting. Will continue discussion with therapy team, SW, patient and family. Restrictions/ Precautions: Falls WB status: FWB Functional Hx: ADLs: Independent Cognition: Independent Mobility: No AD Barriers to Discharge: Decreased mobility and ability to perform self care, balance deficits, weakness Estimated Length of Stay: 14-21 days Discharge Destination: Not safe to return home alone, looking for options. Discussed long-term options with patient, he is not open at this time to any facility based arrangement. He also does not have a desire to have someone live with him in order to provide care. His sister will be there for a short period of time. Have asked for social work to get involved.
[2019-04-01] MEDS: POLYETHYLENE GLYCOL 3350 17 GM POWDER PO SCH ×2 (08:17→08:21)
[2019-04-01] MEDS: SERTRALINE 50 MG TAB PO SCH (08:21)
[2019-04-01] MEDS: DOCUSATE SODIUM 100 MG CAP PO SCH ×2 (08:22→22:52)
[2019-04-01] MEDS: EMTRICITABINE 200 MG CAP PO SCH (08:22)
[2019-04-01] MEDS: TENOFOVIR 300 MG TAB PO SCH (08:22)
[2019-04-01] MEDS: DOLUTEGRAVIR 50 MG TAB PO SCH (08:22)
[2019-04-01] MEDS: ASPIRIN EC 325 MG TAB PO SCH (08:22)
--- NOTE | 2019-04-01 12:07 | Progress Note ---
Assessment and Plan Cultures: None A/P: 53-year-old male with HIV, not on medications, seizure disorder, recent CVA. #HIV/AIDS: he was diagnosed in 1985, used to see Dr. Levine, not on meds for 2 years. JN=[id number],000 on 03/14/2019. CD4 count is low at 46. Genotype showed wild type virus with no resistance mutations. Started ART here. #Acute CVA: At inpatient rehabilitation #Seizure disorder: On medications. #Major depression: psych following. Recs: continue PO Bactrim prophylaxis due to lack of inpatient combination pills - continue PO dolutegravir, tenofovir DF, and emtricitabine daily. Plan is to change to single pill Biktarvy as outpatient Please discharge with 2 weeks of medications (Truvada 1 tab daily + Tivicay 50 mg daily + Bactrim DS 1 tab daily). Will be seen in ID clinic soon post discharge by Dr. Montalvo or me (manager of clinical notified) ID will sign off. Please call with questions. Sergio Louise MD, FACP [facility] ([facility] C: [phone] O: [phone] F: [phone] Subjective Date of service: 04/01/19 Principal diagnosis: CVA Interval history: No fever. Working with therapy. Has been tolerating HIV meds without issues. No nausea, vomiting. Objective - Exam Narrative Exam: Physical Exam: Constitutional: Alert, cooperative. No acute distress Head, Ears, Nose: Normocephalic, atraumatic. External ears, nose normal Eyes: Conjunctivae/corneas clear. No icterus. No ptosis. Neck: Supple, no meningeal signs Oral: no thrush Cardiovascular: S1, S2 normal. Respiratory: Good air entry, clear to auscultation bilaterally GI: Soft, non-tender; bowel sounds normal. No peritoneal signs Musculoskeletal: No pedal edema, no cyanosis. Skin: No rash or abscess Hem/Lymphatic: No palpable cervical or supraclavicular nodes. No lymphangitis Psych: Mood ok. Affect normal Neurological: Awake, alert, oriented. Right sided weakness - Constitutional Vitals: Vital Signs Temp Pulse Resp BP Pulse Ox 98.0 F 73 18 102/69 96 04/01/19 07:56 04/01/19 07:56 04/01/19 07:56 04/01/19 07:56 04/01/19 07:56 Temperature -Last 24 Hours Temperature 98.0 F Temperature 98.1 F Temperature 98.1 F Temperature 122.0 F Temperature 98 F - Labs CBC & Chem 7: 03/30/19 07:33 03/30/19 07:33
[2019-04-01] MEDS: SULFAMETHOXAZOLE/TRIMETHOPRIM 800/160MG DS TAB PO SCH (14:19)
[2019-04-01] MEDS: ENOXAPARIN 40 MG/0.4 ML INJ SUB-Q SCH (22:52)
[2019-04-02 08:02] VITALS: BP 107/62
[2019-04-02] MEDS: DOLUTEGRAVIR 50 MG TAB PO SCH (09:12)
[2019-04-02] MEDS: ASPIRIN EC 325 MG TAB PO SCH (09:12)
[2019-04-02] MEDS: SERTRALINE 50 MG TAB PO SCH (09:12)
[2019-04-02] MEDS: TENOFOVIR 300 MG TAB PO SCH (09:12)
[2019-04-02] MEDS: POLYETHYLENE GLYCOL 3350 17 GM POWDER PO SCH (09:13)
[2019-04-02] MEDS: EMTRICITABINE 200 MG CAP PO SCH (09:13)
[2019-04-02] MEDS: DOCUSATE SODIUM 100 MG CAP PO SCH (09:13)
--- NOTE | 2019-04-02 12:24 | Discharge Summary ---
Providers - Providers Date of Admission: 03/09/19 18:16 Date of discharge: 04/02/19 Attending physician: JANET JOINER III, MD 03/09/19 14:45 Occupational Therapy Evaluate and Treat [CONS] Routine Comment: Reason For Exam: ADL dysfunction Physical Therapy Evaluation and Treat [CONS] Routine Comment: Reason For Exam: Mobility Dysfunction 03/09/19 14:49 Consult to Case Management [CONS] Routine Services Needed at Discharge: Home Health Services Notified:: cm notified 03/09/19 14:52 Speech Therapy Evaluation and Treat [CONS] Routine Reason For Exam: CVA, dysphagia, aphasia 03/10/19 14:21 Consult to Mental Health [CONS] Urgent Reason For Exam: SUICIDAL IDEATIONS,DEPRESSION Place consult to:: MENTAL HEALTH Notified:: AMANDA Was contact made?: Yes 03/12/19 16:59 Consult to Physician [CONS] Routine Comment: Consulting Provider: MERCY HEARD Physician Instructions: Reason For Exam: HIV management > 2yrs off meds/no check Primary care physician: FILLER SHREDDER HELPER Hospitalization Reason for admission: CVA Condition: Fair Pertinent studies: Chest x-ray dated 03/15/2019: Prominent elevation of left hemidiaphragm Abdominal series dated 03/16/2019: Interval improvement of gaseous distention of the stomach with continued elevation of left hemidiaphragm. CT abdomen and chest without contrast dated 03/17/2019: Solid 5 mm left upper lobe home in very nodule. Moderate elevation of left hemidiaphragm. Fluoroscopic sniff test dated 03/18/2019: Normal movement of each hemidiaphragm with slightly limited movement of the left due to moderate elevation and underlying gas-filled bowel/stomach. Hospital course: 63-year-old male presented with right hemiparesis and slurred speech. MRI showed a subacute ischemic stroke in the left evelyn with chronic white matter changes. Was started on secondary stroke prevention. No significant stenosis seen on carotid duplex. Echocardiogram essentially normal. Patient underwent therapy and was deemed appropriate for acute inpatient rehabilitation. Patient noted to have HIV as well as seizure disorder but is not on medication for either. Patient patient participating rehabilitation and progressed fairly well. He did have issues with depression and suicidal ideation. Due to this, psychiatry consult was called and the patient was started on Zoloft and placed on a 1013 with a sitter for a period of time. Since patient has been taking Zoloft his HIV medications have been chosen around this to reduce any issues with interactions. There are some issues apparently with his insurance company not having Zoloft as a normal medication (not sure why this is this is a generic medication and should not have any issues with being covered by any insurance company). I have written this as a do not substitute. Substitution should be made in coordination with infectious disease. He remains flat however does not endorse suicidal ideation at this time. We have encouraged him to seek further treatment as an outpatient and if he has any further episodes of suicide ideation to return to the ER for further assessment and treatment. We will also discuss this issue with his family who will be arriving today to take him home. A she was noted to have constipation early on and a KUB was obtained which s howed a rather marked elevation of the left hemidiaphragm. Further workup was performed including consultation with pulmonology and general surgery. Thoracic surgery is not available at our facility. Patient appears to be in no distress from this and by all appearances this is likely chronic in nature. Further evaluation with CT as well as a fluoroscopic sniff test were performed and did not show a hemiparalysis of the diaphragm. An incidental 5 mm nodules found on the lung and the patient will need to continue to follow-up with pulmonology for this in the future. If he continues to have any further issues such as shortness of breath and/or tachycardia may also want to consider following up with a thoracic surgeon for further evaluation of the elevated hemidiaphragm. Patient was questioned and denied any incidence of trauma/injury to the chest in the past. He also denied any knowledge of previous chest x-rays and we could not find any in our system. Infectious disease was consulted early on due to the patient not indications for HIV. He gave us several different stories as to why he was no longer taking the medications. Infectious disease checked his levels and found that he does indeed need to be on medications. He did state today to one of the nursing staff that he was not take them at home however we continue to encourage him to take them and to follow up with infectious disease for further monitoring and adjustment of medications. He will go home currently on medication he has here until infectious disease see some in follow-up at which point he will be tra nsitioned to a single tablet option. He was also continued on Bactrim for prophylaxis. He remains on secondary prevention for CVA. He'll need to continue this and follow up with therapy as per home health. We have concerns about him going home alone. He has refused to go to any facility based rehabilitation for further treatment. Due to this concern we also contacted his family with his permission and his sister is flying and to take him home. We are uncertain how long she will be able to spend with him however we would strongly recommend that he reconsider in either have someone move in with him, he movement with someone else, or that he reconsider moving into a facility that can help provide care for him until he is able to safely provide for himself. Patient has been counseled numerous times to continue taking medications as prescribed. He has been asked to return to the ER for any changes in condition and to maintain his follow-ups with all physicians including PCP, psychiatry, infectious disease, and pulmonology. We have also informed him that he can either see the physicians that have seen him here in the hospital or feel free to obtain his own physicians from elsewhere. Disposition: DC/TX- HOME UNDER HOME HLTH Time spent for discharge: >30 mins Core Measure Documentation - Palliative Care Palliative Care/ Comfort Measures: Not Applicable - Core Measures Any of the following diagnoses?: stroke - Stroke Discharge Requirements Statin for LDL = or >70 mg/dl on DC: Yes Anticoag for atrial fib/atrial flutter: Not Applicable Antithrombotic for ischemic stroke: Yes Exam - Physical Exam Narrative exam: MUSCULOSKELETAL SPECIALTY EXAM CONSTITUTIONAL: Well developed, well nourished, appropriately groomed. LEFT hand dominant. RESPIRATORY: Clear to auscultation bilaterally, decreased on left base. no increased work of breathing CARDIOVASCULAR: Regular rate, regular Rhythm, no swelling, edema or tenderness in BUE or BLE. All extremities warm. GI: + bowel sounds, soft, NTTP, nondistended. INTEGUMENTARY: Normal, no lesion, rash, masses or bruising noted in extremities. MUSCULOSKELETAL: Slight right shoulder sublux, otherwise, BUE and BLE normal without defect, crepitus, subluxation, effusion, arthritic changes or TTP. R 4-/5, with right foot drop on RLE, RUE 3 - 4-/5 L 4+ /5 ROM decreased on right NEURO: CN VII : right facial droop CN XII : Tongue protrudes right Sensation intact in all extremities without extinction. No tremor noted in 4 extremities. Naming and repetition intact. Follows 2 step commands. Aphasia not appreciated Dysarthria not appreciated Dysphagia not present Neglect not present POSTURE and GAIT: Sitting posture good. Seated balance appears reasonable. Gait reasonable with RW, some LOB, distance improving but not safe during ambulation. PSYCH: Alert, disoriented, flat affect. Questionable mild dementia. No SI today. - Constitutional Vitals: Temp Pulse Resp BP Pulse Ox 36.3 C L 102 H 18 107/62 96 04/02/19 07:53 04/02/19 07:53 04/02/19 07:53 04/02/19 07:53 04/02/19 07:53 Plan Activity: advance as tolerated, no driving until cleared by PCP, up only with assistance, fall precautions Diet: regular Special Instructions: physical therapy, occupational therapy, home health RN Durable Medical Equipment Needed Upon Discharge: [facility] Concerns: Previously diagnosed with HIV yet off treatment for numerous years. We will need to follow up with infectious disease for further monitoring and continuation of treatment. Patient also will need to follow-up with pulmonology for monitoring of left hemidiaphragm. Follow-up with neurology after CVA. Follow-up PCP. Follow-up with psychiatry/mental health for depression and counseling. If patient experiences any further suicidal ideation he should immediately seek treatment. Follow up with: PRIMARY CARE, [Primary Care Provider] - 7 Days MERCY HEARD MD [Staff Physician] - 7 Days EZE UMANZOR MD [Staff Physician] - 7 Days (Depression, suicidal ideation) Prescriptions: AtorvaSTATin [Lipitor] 40 mg PO QHS #30 tablet Aspirin EC 325 mg PO QDAY #30 tablet Sulfamethoxazole/Trimethoprim [Bactrim DS TAB] 1 each PO Q24H #30 tablet Dolutegravir [Tivicay] 50 mg PO DAILY 14 Days #14 tablet Emtricitabine/Tenofovir (Tdf) [Truvada 100 mg-150 mg Tablet] 2 each PO DAILY 14 Days #28 tablet Sertraline [Zoloft] 50 mg PO QDAY #30 tablet NS
[2019-04-02] MEDS: SULFAMETHOXAZOLE/TRIMETHOPRIM 800/160MG DS TAB PO SCH (15:12)
== END 2019-04-02 15:45 | disposition home health service (06) | DRG 56 ==
LOC: 3A 13:48 → UNDOADMIN 13:48 → 3B 18:16
PROVIDERS: ADMIT Physical Medicine & Rehabilitation; ATTEND Physical Medicine & Rehabilitation
DX: I69.351 Hemiplegia and hemiparesis following cerebral infarction affecting right dominant side (principal); I63.9 Cerebral infarction, unspecified; B20 Human immunodeficiency virus [HIV] disease; F33.2 Major depressive disorder, recurrent severe without psychotic features; R14.0 Abdominal distension (gaseous); G40.909 Epilepsy, unspecified, not intractable, without status epilepticus; M62.81 Muscle weakness (generalized); E87.6 Hypokalemia
CPT/HCPCS: 36415; 71046; 71250; 74018; 74022; 74150; 76000; 80048; 80053; 82024; 83735; 85025; 85027; 87536; 87901; 93005; 93010; G0378; G0515; A9270-GY; J1644; J1650; J7030